=== PATIENT | female | born 1990 | race Caucasian/White ===

== ENCOUNTER 2018-11-19 15:19 | Inpatient (IN) ==
[2018-11-19] MEDS ORDERED: Sod Chloride 0.9% Inj 1,000 ML IV.SIG ONE (17:54)
--- NOTE | 2018-11-19 18:03 | ED ---
HPI General Chief complaint: Eye Problems Stated complaint: eye problem Time Seen by Provider: 11/19/18 17:22 Source: patient Mode of arrival: ambulatory Limitations: no limitations History of Present Illness HPI Narrative: Patient is a 28-year-old female who was sent to the emergency room by the interactive producer, Dr. Terry Martin for evaluation. Patient was found to have papilledema today on her ophthalmology exam, she was sent to the emergency room for an MRI with possible lumbar puncture and neuro consult. Patient reports that for the past few weeks, her ears have been feeling very clogged. Patient reports that she had tried to clear the ears, she is currently on amoxicillin for possible infection. Reports that for the past week and a half, she has been feeling her heartbeat in her ears and has been hearing a whooshing sound. Patient reports that since Sunday, she has been having vision changes. Patient reports that when she sees a white light, it just lingers. Reports that now she is seeing shadowing's. Patient does wear prescribed glasses for reading. Reports that she has had a posterior headache with pain that goes her neck with the symptoms. Patient denies any fevers or chills, denies any nausea or vomiting, patient with no other complaints at this time. chief complaint: Reports vision change Onset (ago): day(s) Onset description: gradual Duration: constant Location: Reports both eyes Eye Symptoms: Reports blurry vision Mechanism: none Severity: moderate Severity scale (1-10): 4 If Pain, Quality: aching Associated symptoms: Reports headache and neck pain Treatments Prior to Arrival: Reports none Related Data Home Medications Medication Instructions Recorded Confirmed amoxicillin 875 mg PO BID 11/19/18 11/19/18 methocarbamol 750 mg PO BID 11/19/18 11/19/18 methylprednisolone 4 mg PO PER PKG DIR 11/19/18 11/19/18 Allergies Allergy/AdvReac Type Severity Reaction Status Date / Time No Known Allergies Allergy Verified 11/19/18 17:44 Review of Systems ROS: all other systems reviewed are negative [facility] Medical History Medical History Patient denies medical problems (Acute) Surgical History Surgical History History of tonsillectomy (Acute) Social History Social History Substance History: No History of Abuse Second Hand Smoke Exposure: No Smoking Status: Never smoker How Often Do You Have a Drink Containing Alcohol: 4 or more times a week Recent Travel in [facility] within the Last 8 Weeks: Yes Recent Out of Country Travel within the Last 8 Weeks: Yes Immunization History Tetanus Immunization: <5 Years Exam Narrative Exam Narrative: GENERAL: Mild distress SKIN: Focused skin assessment warm/dry. HEAD: Atraumatic. Normocephalic. EYES: Pupils equal and round. No scleral icterus. No injection or drainage. EARS: TM normal with no perforation or swelling, no otitis media or externa ENT: No nasal bleeding or discharge. Mucous membranes pink and moist. NECK: Trachea midline. No JVD. Negative Kernig's and Brudzinski sign CARDIOVASCULAR: Regular rate and rhythm. No murmur appreciated. RESPIRATORY: No accessory muscle use. Clear to auscultation. Breath sounds equal bilaterally. GASTROINTESTINAL: Abdomen soft, non-tender, nondistended. Hepatic and splenic margins not palpable. MUSCULOSKELETAL: No obvious deformities. No clubbing. No cyanosis. No edema. NEUROLOGICAL: Awake and alert. No obvious cranial nerve deficits. Motor grossly within normal limits. Normal speech. PSYCHIATRIC: Appropriate mood and affect; insight and judgment normal. Const General: cooperative, no acute distress and well developed Nutritional Appearance: overweight Orientation: alert, awake and oriented x3 HENMT Head: normocephalic and atraumatic Ears: TM normal on the right and TM normal on the left Nose: no nasal discharge and no epistaxis Mouth: moist mucous membranes Throat: posterior oropharynx normal and uvula midline Eyes Sclera: normal sclerae Pupils: PERRL Neck Neck: no meningeal signs, trachea midline and no JVD Resp Effort & Inspection: no use of accessory muscles Auscultation: clear to auscultation bilaterally Cardio Rate: regular rate Rhythm: regular rhythm Heart Sounds: no murmurs GI Inspection: non-distended Palpation: soft, no hepatosplenomegaly, no guarding, not rigid and nontender Auscultation: normal bowel sounds Rectal Exam: heme negative stool, No mass, No tenderness and other Back/Spine/Pelvis Back: no CVA tenderness Cervical Spine: No cervical spinal tenderness Thoracic/Lumbar Spine: No thoracic spinal tenderness and No lumbar spinal tenderness Skin General: dry skin (warm) and other (The patient is pale appearing with pallor to the mucosa in her mouth as well as in her eyes.) Neuro General: alert, awake and oriented x3 Cranial Nerves: CN's II-XI intact bilaterally Speech: speech normal Motor: strength 5/5 throughout and no movement abnormalities noted Sensory Exam: no sensory deficits noted Extrem General: normal to inspection (2+ pulses in all 4 extremities.), no calf tenderness, no clubbing, no cyanosis and no edema Psych Mood: congruent mood Affect: normal affect Judgment: judgment good Course Initial Documented Vital Signs Temperature 97.7 F 11/19/18 15:30 Pulse Rate 112 H 11/19/18 15:30 Respiratory Rate 16 11/19/18 15:30 Blood Pressure 139/60 11/19/18 15:30 Pulse Oximetry 99 11/19/18 15:30 Last Documented Vital Signs Temperature 97.8 F 11/24/18 20:45 Pulse Rate 99 H 11/24/18 20:45 Respiratory Rate 19 11/24/18 20:45 Blood Pressure 107/57 L 11/24/18 20:45 Pulse Oximetry 98 11/24/18 20:45 Sign Out Sign Out Data: Patient Sign Out occurred on 11/19/18 at 19:57. Patient's care was discussed, and care was transferred from Yen Gale to Mari Donahue MD. Sign Out Comment: Patient pending mri of brain and then admission to hospital. Last updated by Yen Gale at 11/19/18 19:05 Post-Handoff Eval: The patient's case was checked out to me by Dr. Gale. Please see her initial history and physical. The patient's case was checked out to me at the conclusion of her shift. The patient is pending MRI of the brain. The patient presented with reports of not feeling well for the last few weeks. She reports that she began to have a pressure sensation in bilateral ears. She reports having a pressure sensation about the back of the head. The patient reports that she went to a local urgent care center and was treated with amoxicillin for suspected ear infection. The patient reports that the symptoms continued and she then began to have changes in her vision with shadows in her vision. She reports that she was seen by an eye doctor earlier today for examination and was noted to have papilledema. The patient was sent to the emergency department for an MRI of the orbit with and without contrast and admission for further evaluation. During the course of the patient's emergency department visit, the patient was placed on a power distribution engineer with oximetry and frequent blood pressure monitoring. The patient had IV access obtained and blood work sent for analysis. The patient was initially provided by Dr. Gale, normal saline 1 L IV fluid bolus. After the patient's white blood cell count came back elevated, the patient was treated with Zosyn 3.375 g IV, Blood cultures x2 were collected and a lactic acid was sent for analysis. The patient's diagnostic studies are remarkable for the elevated white blood cell count noted by Dr. Gale, hemoglobin 6.5. The patient reports a regular menstrual cycle that usually last for 4 days and is not typically heavy. Rectal exam was done by me to evaluate for possible underlying GI bleed. No significant stool was present in the rectal vault, however mucus was Hemoccult negative. The patient is noted to have an elevated MCV suspicious for iron deficiency anemia, platelets are 424, neutrophils 78, PT is 10.4, PTT 32.7, chemistries remarkable for glucose of 117, lactic acid within normal limits at 1.2, total bilirubin is 3.5, AST is 38. Urinalysis shows moderate occult blood , 27 RBCs, 7 WBCs, rare bacteria, culture not indicated. The blood in the patient's urine is likely related to her menstrual cycle as she is currently on it. Given the possibility of a hemolytic disease causing the patient's anemia, an LDH and haptoglobin was ordered. The patient's MRI of the orbits with and without contrast was read by the reading radiologist as showing mild ethmoid sinusitis, otherwise normal orbit MRI with and without contrast. I spoke to the reading radiologist regarding this patient's case and the rest of the patient's MRI examination of her brain, given the patient's other symptoms. He reports after reviewing the images, no other acute abnormality is noted in the patient's brain. The patient's case including history, pertinent physical examination findings, and laboratory studies were discussed with Dr. Nelson. It was agreed that the patient would be admitted to the hospitalist service. The patient's results were discussed with the patient, including the plan of care. I explained that further testing and/ or monitoring is indicated based on the patient's history, examination, and/ or laboratory findings. Therefore, I recommended admission for additional evaluation. The patient expressed understanding and was agreeable with this plan. The patient was admitted to the hospital in guarded condition and sent to a bed under the care of the [facility] service. Medical Decision Making MDM Narrative Medical decision making narrative: During the course of the patients emergency department visit, the patients history, examination, and differential diagnosis were reviewed with the patient. The patient was placed on a power distribution engineer with oximetry and frequent blood pressure monitoring. The patient had an IV access obtained and blood work sent for analysis. The patient was initially provided IV fluids. The patients laboratory studies were reviewed and remarkable for WBC 22.2, hemoglobin 6.5, hematocrit 19.5, platelets 424 INR 1.0 Sodium 138, potassium 3.7, BUN 16, creatinine 0.73, chloride 104 Patient's hemoglobin 6.5, patient has been typed and screened and 2 units of blood was ordered for her. Patient reports that she currently is on her menstrual cycle, she has never received blood products in the past and has never been told that she has been anemic in the past. Given her leukocytosis and tachycardia, blood cultures as well as lactic acid were ordered. IV Zosyn was ordered. Medical Screen Exam Complete: Yes Emergency Medical Condition: Yes Differential Diagnosis Differential Diagnosis: Intracranial mass lesions, cerebral edema, obstructive hydrocephalus, obstruction of venous flow -venous sinus thrombosis, jugular vein compression, idiopathic intracranial hypertension, cerebral edema Lab Data Result diagrams: 11/24/18 05:59 11/22/18 06:09 POC Results POC Urine Results Negative Lab Results 11/19/18 11/19/18 11/19/18 Range/Units 18:00 18:00 18:00 WBC 22.2 H (4.0-11.0) th/mm3 RBC 1.84 L (4.00-5.30) mil/mm3 Hgb 6.5 L* (11.6-15.3) gm/dL Hct 19.5 L* (35.0-46.0) % MCV 106.3 H (80.0-100.0) fL MCH 35.2 H (27.0-34.0) pg MCHC 33.1 (32.0-36.0) % RDW 27.9 H (11.6-17.2) % Plt Count 424 (150-450) th/mm3 MPV 7.4 (7.0-11.0) fL Prelim Diff (Auto) Slide review pending Neut % (Auto) 78.0 H (16.0-70.0) % Lymph % (Auto) 13.9 (9.0-44.0) % Snyder % (Auto) 7.3 (0.0-8.0) % Eos % (Auto) 0.2 (0.0-4.0) % Baso % (Auto) 0.6 (0.0-2.0) % Neut # (Auto) 17.3 H (1.8-7.7) th/mm3 Lymph # (Auto) 3.1 (1.0-4.8) th/mm3 Snyder # (Auto) 1.6 H (0.0-0.9) th/mm3 Eos # (Auto) 0.0 (0.0-0.4) th/mm3 Baso # (Auto) 0.1 (0.0-0.2) th/mm3 WBC Differential Manual diff final Seg Neuts % (Manual) 77 H (16-70) % Band Neuts % (Manual) 5 (0-6) % Lymphocytes % (Manual) 15 (9-44) % Monocytes % (Manual) 1 (0-8) % Eosinophils % (Manual) 1 (0-4) % Basophils % (Manual) 1 (0-2) % Metamyelocytes % (Man) (0-1) % Myelocytes % (Man) (0-0) % Abs Neuts (Manual) 18.2 H (1.8-7.7) th/mm3 Nucleated RBCs/100 WBC 18 H (0-0) /100 WBC Differential Comment . Hypersegmented Neuts (None) Toxic Granulation 1+ H (None) Platelet Estimate High H (Normal) Platelet Morphology Normal (Normal) Dimorphic RBCs (None) Polychromasia 4.0 H (0.0-1.9) % Basophilic Stippling Faint H (None) Spherocytes 2+ H (None) Pappenheimer Bodies (None) ESR (0-20) mm/hr Haptoglobin (30-200) mg/dL PT 10.4 (9.8-11.6) sec INR 1.0 Ratio APTT 32.7 H (23.4-31.7) sec Sodium 138 (136-145) meq/L Potassium 3.7 (3.5-5.1) meq/L Chloride 104 (98-107) meq/L Carbon Dioxide 27.7 (21.0-32.0) meq/L Anion Gap 6 (5-15) meq/L BUN 16 (7-18) mg/dL Creatinine 0.73 (0.50-1.00) mg/dL Estimated GFR Greater than 89 (>89) mL/min Random Glucose 117 H (74-106) mg/dL Lactic Acid (0.4-2.0) mmol/L Calcium 8.5 (8.5-10.1) mg/dL Iron (50-170) mcg/dL TIBC (250-450) mcg/dL % Saturation (20-50) % Total Bilirubin 3.5 H (0.2-1.0) mg/dL AST 38 H (15-37) U/L ALT 20 (10-53) U/L Alkaline Phosphatase 92 (45-117) U/L Lactate Dehydrogenase (84-246) U/L Total Protein 7.7 (6.4-8.2) g/dL Albumin 4.2 (3.4-5.0) g/dL Vitamin B12 (193-986) pg/mL Folate (3.1-17.5) ng/mL TSH (0.358-3.740) uIU/mL Beta HCG, Qual (0-5) mIU/mL Urine Color (Yellw/Straw) Urine Clarity (Clear) Urine pH (5.0-8.5) Ur Specific [place] (1.002-1.035) Urine Protein (Neg-Trace) mg/dL Urine Glucose (UA) (Negative) mg/dL Urine Ketones (Negative) mg/dL Urine Occult Blood (Negative) Urine Nitrate (Negative) Urine Bilirubin (Negative) Urine Urobilinogen (Less than 2) mg/dL Ur Leukocyte Esterase (Negative) Urine RBC (0-3) /hpf Urine WBC (0-5) /hpf Ur Squamous Epith Cells (0-5) /hpf Urine Bacteria (None) /hpf Urine Mucus (Occasional) /lpf Micro UA Comment Ur Microscopic Review Urine Culture Comments CSF Volume (1) mL CSF Supernat Color (1) (Clear) CSF Gross Blood (1) (0) CSF Volume (2) mL CSF Supernat Color (2) (Clear) CSF Gross Blood (2) (0) CSF Volume (3) mL CSF Supernat Color (3) (Clear) CSF Gross Blood (3) (0) CSF Volume (4) mL CSF Supernat Color (4) (Clear) CSF Gross Blood (4) (0) CSF WBC (4) (0-10) /mm3 CSF RBC (4) (None) /mm3 CSF Neutrophils % % CSF Lymphocytes % % CSF Monocytes % % CSF Glucose (40-80) mg/dL CSF Total Protein (15.0-45.0) mg/dL Immunophenotypic Anal Marrow Immunophenotype Blood Type Antibody Screen Prewarmed Antibody Srcn Antibody Identification Antibody ID (Elution) Antigen Identification Direct Antiglob Test (Negative) MTS Gel Crossmatch Crossmatch Prewarmed Bld Prod Order Comment 11/19/18 11/19/18 11/19/18 Range/Units 18:00 18:44 18:44 WBC (4.0-11.0) th/mm3 RBC (4.00-5.30) mil/mm3 Hgb (11.6-15.3) gm/dL Hct (35.0-46.0) % MCV (80.0-100.0) fL MCH (27.0-34.0) pg MCHC (32.0-36.0) % RDW (11.6-17.2) % Plt Count (150-450) th/mm3 MPV (7.0-11.0) fL Prelim Diff (Auto) Neut % (Auto) (16.0-70.0) % Lymph % (Auto) (9.0-44.0) % Snyder % (Auto) (0.0-8.0) % Eos % (Auto) (0.0-4.0) % Baso % (Auto) (0.0-2.0) % Neut # (Auto) (1.8-7.7) th/mm3 Lymph # (Auto) (1.0-4.8) th/mm3 Snyder # (Auto) (0.0-0.9) th/mm3 Eos # (Auto) (0.0-0.4) th/mm3 Baso # (Auto) (0.0-0.2) th/mm3 WBC Differential Seg Neuts % (Manual) (16-70) % Band Neuts % (Manual) (0-6) % Lymphocytes % (Manual) (9-44) % Monocytes % (Manual) (0-8) % Eosinophils % (Manual) (0-4) % Basophils % (Manual) (0-2) % Metamyelocytes % (Man) (0-1) % Myelocytes % (Man) (0-0) % Abs Neuts (Manual) (1.8-7.7) th/mm3 Nucleated RBCs/100 WBC (0-0) /100 WBC Differential Comment Hypersegmented Neuts (None) Toxic Granulation (None) Platelet Estimate (Normal) Platelet Morphology (Normal) Dimorphic RBCs (None) Polychromasia (0.0-1.9) % Basophilic Stippling (None) Spherocytes (None) Pappenheimer Bodies (None) ESR (0-20) mm/hr Haptoglobin (30-200) mg/dL PT (9.8-11.6) sec INR Ratio APTT (23.4-31.7) sec Sodium (136-145) meq/L Potassium (3.5-5.1) meq/L Chloride (98-107) meq/L Carbon Dioxide (21.0-32.0) meq/L Anion Gap (5-15) meq/L BUN (7-18) mg/dL Creatinine (0.50-1.00) mg/dL Estimated GFR (>89) mL/min Random Glucose (74-106) mg/dL Lactic Acid 1.2 (0.4-2.0) mmol/L Calcium (8.5-10.1) mg/dL Iron 106 (50-170) mcg/dL TIBC 406 (250-450) mcg/dL % Saturation 26.1 (20-50) % Total Bilirubin (0.2-1.0) mg/dL AST (15-37) U/L ALT (10-53) U/L Alkaline Phosphatase (45-117) U/L Lactate Dehydrogenase (84-246) U/L Total Protein (6.4-8.2) g/dL Albumin (3.4-5.0) g/dL Vitamin B12 (193-986) pg/mL Folate (3.1-17.5) ng/mL TSH (0.358-3.740) uIU/mL Beta HCG, Qual (0-5) mIU/mL Urine Color (Yellw/Straw) Urine Clarity (Clear) Urine pH (5.0-8.5) Ur Specific [place] (1.002-1.035) Urine Protein (Neg-Trace) mg/dL Urine Glucose (UA) (Negative) mg/dL Urine Ketones (Negative) mg/dL Urine Occult Blood (Negative) Urine Nitrate (Negative) Urine Bilirubin (Negative) Urine Urobilinogen (Less than 2) mg/dL Ur Leukocyte Esterase (Negative) Urine RBC (0-3) /hpf Urine WBC (0-5) /hpf Ur Squamous Epith Cells (0-5) /hpf Urine Bacteria (None) /hpf Urine Mucus (Occasional) /lpf Micro UA Comment Ur Microscopic Review Urine Culture Comments CSF Volume (1) mL CSF Supernat Color (1) (Clear) CSF Gross Blood (1) (0) CSF Volume (2) mL CSF Supernat Color (2) (Clear) CSF Gross Blood (2) (0) CSF Volume (3) mL CSF Supernat Color (3) (Clear) CSF Gross Blood (3) (0) CSF Volume (4) mL CSF Supernat Color (4) (Clear) CSF Gross Blood (4) (0) CSF WBC (4) (0-10) /mm3 CSF RBC (4) (None) /mm3 CSF Neutrophils % % CSF Lymphocytes % % CSF Monocytes % % CSF Glucose (40-80) mg/dL CSF Total Protein (15.0-45.0) mg/dL Immunophenotypic Anal Marrow Immunophenotype Blood Type O Positive Antibody Screen Positive H Prewarmed Antibody Srcn Antibody Identification Antibody ID (Elution) Antigen Identification e Antigen - POSITIVE Direct Antiglob Test (Negative) MTS Gel Crossmatch Crossmatch Prewarmed Bld Prod Order Comment 11/19/18 11/19/18 11/19/18 Range/Units 18:44 18:44 19:35 WBC (4.0-11.0) th/mm3 RBC (4.00-5.30) mil/mm3 Hgb (11.6-15.3) gm/dL Hct (35.0-46.0) % MCV (80.0-100.0) fL MCH (27.0-34.0) pg MCHC (32.0-36.0) % RDW (11.6-17.2) % Plt Count (150-450) th/mm3 MPV (7.0-11.0) fL Prelim Diff (Auto) Neut % (Auto) (16.0-70.0) % Lymph % (Auto) (9.0-44.0) % Snyder % (Auto) (0.0-8.0) % Eos % (Auto) (0.0-4.0) % Baso % (Auto) (0.0-2.0) % Neut # (Auto) (1.8-7.7) th/mm3 Lymph # (Auto) (1.0-4.8) th/mm3 Snyder # (Auto) (0.0-0.9) th/mm3 Eos # (Auto) (0.0-0.4) th/mm3 Baso # (Auto) (0.0-0.2) th/mm3 WBC Differential Seg Neuts % (Manual) (16-70) % Band Neuts % (Manual) (0-6) % Lymphocytes % (Manual) (9-44) % Monocytes % (Manual) (0-8) % Eosinophils % (Manual) (0-4) % Basophils % (Manual) (0-2) % Metamyelocytes % (Man) (0-1) % Myelocytes % (Man) (0-0) % Abs Neuts (Manual) (1.8-7.7) th/mm3 Nucleated RBCs/100 WBC (0-0) /100 WBC Differential Comment Hypersegmented Neuts (None) Toxic Granulation (None) Platelet Estimate (Normal) Platelet Morphology (Normal) Dimorphic RBCs (None) Polychromasia (0.0-1.9) % Basophilic Stippling (None) Spherocytes (None) Pappenheimer Bodies (None) ESR (0-20) mm/hr Haptoglobin (30-200) mg/dL PT (9.8-11.6) sec INR Ratio APTT (23.4-31.7) sec Sodium (136-145) meq/L Potassium (3.5-5.1) meq/L Chloride (98-107) meq/L Carbon Dioxide (21.0-32.0) meq/L Anion Gap (5-15) meq/L BUN (7-18) mg/dL Creatinine (0.50-1.00) mg/dL Estimated GFR (>89) mL/min Random Glucose (74-106) mg/dL Lactic Acid (0.4-2.0) mmol/L Calcium (8.5-10.1) mg/dL Iron (50-170) mcg/dL TIBC (250-450) mcg/dL % Saturation (20-50) % Total Bilirubin (0.2-1.0) mg/dL AST (15-37) U/L ALT (10-53) U/L Alkaline Phosphatase (45-117) U/L Lactate Dehydrogenase (84-246) U/L Total Protein (6.4-8.2) g/dL Albumin (3.4-5.0) g/dL Vitamin B12 (193-986) pg/mL Folate (3.1-17.5) ng/mL TSH (0.358-3.740) uIU/mL Beta HCG, Qual (0-5) mIU/mL Urine Color Yellow (Yellw/Straw) Urine Clarity Clear (Clear) Urine pH 6.0 (5.0-8.5) Ur Specific [place] 1.017 (1.002-1.035) Urine Protein Negative (Neg-Trace) mg/dL Urine Glucose (UA) Negative (Negative) mg/dL Urine Ketones Negative (Negative) mg/dL Urine Occult Blood Moderate H (Negative) Urine Nitrate Negative (Negative) Urine Bilirubin Negative (Negative) Urine Urobilinogen Less than 2 (Less than 2) mg/dL Ur Leukocyte Esterase Negative (Negative) Urine RBC 27 H (0-3) /hpf Urine WBC 7 H (0-5) /hpf Ur Squamous Epith Cells <1 (0-5) /hpf Urine Bacteria Rare H (None) /hpf Urine Mucus Few H (Occasional) /lpf Micro UA Comment Culture not ind Ur Microscopic Review Not Reportable Urine Culture Comments Culture not ind CSF Volume (1) mL CSF Supernat Color (1) (Clear) CSF Gross Blood (1) (0) CSF Volume (2) mL CSF Supernat Color (2) (Clear) CSF Gross Blood (2) (0) CSF Volume (3) mL CSF Supernat Color (3) (Clear) CSF Gross Blood (3) (0) CSF Volume (4) mL CSF Supernat Color (4) (Clear) CSF Gross Blood (4) (0) CSF WBC (4) (0-10) /mm3 CSF RBC (4) (None) /mm3 CSF Neutrophils % % CSF Lymphocytes % % CSF Monocytes % % CSF Glucose (40-80) mg/dL CSF Total Protein (15.0-45.0) mg/dL Immunophenotypic Anal Marrow Immunophenotype Blood Type Antibody Screen Prewarmed Antibody Srcn Antibody Identification Antibody ID (Elution) Antigen Identification Direct Antiglob Test Strongly positive H (Negative) MTS Gel Crossmatch See Detail Crossmatch Prewarmed See Detail Bld Prod Order Comment 11/19/18 11/19/18 11/19/18 Range/Units 20:22 20:53 20:53 WBC (4.0-11.0) th/mm3 RBC (4.00-5.30) mil/mm3 Hgb (11.6-15.3) gm/dL Hct (35.0-46.0) % MCV (80.0-100.0) fL MCH (27.0-34.0) pg MCHC (32.0-36.0) % RDW (11.6-17.2) % Plt Count (150-450) th/mm3 MPV (7.0-11.0) fL Prelim Diff (Auto) Neut % (Auto) (16.0-70.0) % Lymph % (Auto) (9.0-44.0) % Snyder % (Auto) (0.0-8.0) % Eos % (Auto) (0.0-4.0) % Baso % (Auto) (0.0-2.0) % Neut # (Auto) (1.8-7.7) th/mm3 Lymph # (Auto) (1.0-4.8) th/mm3 Snyder # (Auto) (0.0-0.9) th/mm3 Eos # (Auto) (0.0-0.4) th/mm3 Baso # (Auto) (0.0-0.2) th/mm3 WBC Differential Seg Neuts % (Manual) (16-70) % Band Neuts % (Manual) (0-6) % Lymphocytes % (Manual) (9-44) % Monocytes % (Manual) (0-8) % Eosinophils % (Manual) (0-4) % Basophils % (Manual) (0-2) % Metamyelocytes % (Man) (0-1) % Myelocytes % (Man) (0-0) % Abs Neuts (Manual) (1.8-7.7) th/mm3 Nucleated RBCs/100 WBC (0-0) /100 WBC Differential Comment Hypersegmented Neuts (None) Toxic Granulation (None) Platelet Estimate (Normal) Platelet Morphology (Normal) Dimorphic RBCs (None) Polychromasia (0.0-1.9) % Basophilic Stippling (None) Spherocytes (None) Pappenheimer Bodies (None) ESR 82 H (0-20) mm/hr Haptoglobin Less than 10 L (30-200) mg/dL PT (9.8-11.6) sec INR Ratio APTT (23.4-31.7) sec Sodium (136-145) meq/L Potassium (3.5-5.1) meq/L Chloride (98-107) meq/L Carbon Dioxide (21.0-32.0) meq/L Anion Gap (5-15) meq/L BUN (7-18) mg/dL Creatinine (0.50-1.00) mg/dL Estimated GFR (>89) mL/min Random Glucose (74-106) mg/dL Lactic Acid (0.4-2.0) mmol/L Calcium (8.5-10.1) mg/dL Iron (50-170) mcg/dL TIBC (250-450) mcg/dL % Saturation (20-50) % Total Bilirubin (0.2-1.0) mg/dL AST (15-37) U/L ALT (10-53) U/L Alkaline Phosphatase (45-117) U/L Lactate Dehydrogenase 686 H (84-246) U/L Total Protein (6.4-8.2) g/dL Albumin (3.4-5.0) g/dL Vitamin B12 (193-986) pg/mL Folate (3.1-17.5) ng/mL TSH (0.358-3.740) uIU/mL Beta HCG, Qual (0-5) mIU/mL Urine Color (Yellw/Straw) Urine Clarity (Clear) Urine pH (5.0-8.5) Ur Specific [place] (1.002-1.035) Urine Protein (Neg-Trace) mg/dL Urine Glucose (UA) (Negative) mg/dL Urine Ketones (Negative) mg/dL Urine Occult Blood (Negative) Urine Nitrate (Negative) Urine Bilirubin (Negative) Urine Urobilinogen (Less than 2) mg/dL Ur Leukocyte Esterase (Negative) Urine RBC (0-3) /hpf Urine WBC (0-5) /hpf Ur Squamous Epith Cells (0-5) /hpf Urine Bacteria (None) /hpf Urine Mucus (Occasional) /lpf Micro UA Comment Ur Microscopic Review Urine Culture Comments CSF Volume (1) mL CSF Supernat Color (1) (Clear) CSF Gross Blood (1) (0) CSF Volume (2) mL CSF Supernat Color (2) (Clear) CSF Gross Blood (2) (0) CSF Volume (3) mL CSF Supernat Color (3) (Clear) CSF Gross Blood (3) (0) CSF Volume (4) mL CSF Supernat Color (4) (Clear) CSF Gross Blood (4) (0) CSF WBC (4) (0-10) /mm3 CSF RBC (4) (None) /mm3 CSF Neutrophils % % CSF Lymphocytes % % CSF Monocytes % % CSF Glucose (40-80) mg/dL CSF Total Protein (15.0-45.0) mg/dL Immunophenotypic Anal Marrow Immunophenotype Blood Type Antibody Screen P[facility]armed Antibody Srcn Antibody Identification Non-Specific Cold Agglutinin Antibody ID (Elution) Antigen Identification Direct Antiglob Test (Negative) MTS Gel Crossmatch Crossmatch [place] Bld Prod Order Comment 11/20/18 11/20/18 11/20/18 Range/Units 00:51 11:01 11:01 WBC (4.0-11.0) th/mm3 RBC (4.00-5.30) mil/mm3 Hgb (11.6-15.3) gm/dL Hct (35.0-46.0) % MCV (80.0-100.0) fL MCH (27.0-34.0) pg MCHC (32.0-36.0) % RDW (11.6-17.2) % Plt Count (150-450) th/mm3 MPV (7.0-11.0) fL Prelim Diff (Auto) Neut % (Auto) (16.0-70.0) % Lymph % (Auto) (9.0-44.0) % Snyder % (Auto) (0.0-8.0) % Eos % (Auto) (0.0-4.0) % Baso % (Auto) (0.0-2.0) % Neut # (Auto) (1.8-7.7) th/mm3 Lymph # (Auto) (1.0-4.8) th/mm3 Snyder # (Auto) (0.0-0.9) th/mm3 Eos # (Auto) (0.0-0.4) th/mm3 Baso # (Auto) (0.0-0.2) th/mm3 WBC Differential Seg Neuts % (Manual) (16-70) % Band Neuts % (Manual) (0-6) % Lymphocytes % (Manual) (9-44) % Monocytes % (Manual) (0-8) % Eosinophils % (Manual) (0-4) % Basophils % (Manual) (0-2) % Metamyelocytes % (Man) (0-1) % Myelocytes % (Man) (0-0) % Abs Neuts (Manual) (1.8-7.7) th/mm3 Nucleated RBCs/100 WBC (0-0) /100 WBC Differential Comment Hypersegmented Neuts (None) Toxic Granulation (None) Platelet Estimate (Normal) Platelet Morphology (Normal) Dimorphic RBCs (None) Polychromasia (0.0-1.9) % Basophilic Stippling (None) Spherocytes (None) Pappenheimer Bodies (None) ESR (0-20) mm/hr Haptoglobin (30-200) mg/dL PT (9.8-11.6) sec INR Ratio APTT (23.4-31.7) sec Sodium (136-145) meq/L Potassium (3.5-5.1) meq/L Chloride (98-107) meq/L Carbon Dioxide (21.0-32.0) meq/L Anion Gap (5-15) meq/L BUN (7-18) mg/dL Creatinine (0.50-1.00) mg/dL Estimated GFR (>89) mL/min Random Glucose (74-106) mg/dL Lactic Acid (0.4-2.0) mmol/L Calcium (8.5-10.1) mg/dL Iron (50-170) mcg/dL TIBC (250-450) mcg/dL % Saturation (20-50) % Total Bilirubin (0.2-1.0) mg/dL AST (15-37) U/L ALT (10-53) U/L Alkaline Phosphatase (45-117) U/L Lactate Dehydrogenase (84-246) U/L Total Protein (6.4-8.2) g/dL Albumin (3.4-5.0) g/dL Vitamin B12 (193-986) pg/mL Folate (3.1-17.5) ng/mL TSH (0.358-3.740) uIU/mL Beta HCG, Qual (0-5) mIU/mL Urine Color (Yellw/Straw) Urine Clarity (Clear) Urine pH (5.0-8.5) Ur Specific [place] (1.002-1.035) Urine Protein (Neg-Trace) mg/dL Urine Glucose (UA) (Negative) mg/dL Urine Ketones (Negative) mg/dL Urine Occult Blood (Negative) Urine Nitrate (Negative) Urine Bilirubin (Negative) Urine Urobilinogen (Less than 2) mg/dL Ur Leukocyte Esterase (Negative) Urine RBC (0-3) /hpf Urine WBC (0-5) /hpf Ur Squamous Epith Cells (0-5) /hpf Urine Bacteria (None) /hpf Urine Mucus (Occasional) /lpf Micro UA Comment Ur Microscopic Review Urine Culture Comments CSF Volume (1) mL CSF Supernat Color (1) (Clear) CSF Gross Blood (1) (0) CSF Volume (2) mL CSF Supernat Color (2) (Clear) CSF Gross Blood (2) (0) CSF Volume (3) mL CSF Supernat Color (3) (Clear) CSF Gross Blood (3) (0) CSF Volume (4) mL CSF Supernat Color (4) (Clear) CSF Gross Blood (4) (0) CSF WBC (4) (0-10) /mm3 CSF RBC (4) (None) /mm3 CSF Neutrophils % % CSF Lymphocytes % % CSF Monocytes % % CSF Glucose 57 (40-80) mg/dL CSF Total Protein 35.2 (15.0-45.0) mg/dL Immunophenotypic Anal Marrow Immunophenotype Blood Type Antibody Screen [facility] Antibody Srcn Positive H Antibody Identification Antibody ID (Elution) Antigen Identification e Antigen - POSITIVE Direct Antiglob Test (Negative) MTS Gel Crossmatch Crossmatch [place] Bld Prod Order Comment 11/20/18 11/20/18 11/20/18 Range/Units 11:01 14:00 16:24 WBC (4.0-11.0) th/mm3 RBC (4.00-5.30) mil/mm3 Hgb (11.6-15.3) gm/dL Hct (35.0-46.0) % MCV (80.0-100.0) fL MCH (27.0-34.0) pg MCHC (32.0-36.0) % RDW (11.6-17.2) % Plt Count (150-450) th/mm3 MPV (7.0-11.0) fL Prelim Diff (Auto) Neut % (Auto) (16.0-70.0) % Lymph % (Auto) (9.0-44.0) % Snyder % (Auto) (0.0-8.0) % Eos % (Auto) (0.0-4.0) % Baso % (Auto) (0.0-2.0) % Neut # (Auto) (1.8-7.7) th/mm3 Lymph # (Auto) (1.0-4.8) th/mm3 Snyder # (Auto) (0.0-0.9) th/mm3 Eos # (Auto) (0.0-0.4) th/mm3 Baso # (Auto) (0.0-0.2) th/mm3 WBC Differential Seg Neuts % (Manual) (16-70) % Band Neuts % (Manual) (0-6) % Lymphocytes % (Manual) (9-44) % Monocytes % (Manual) (0-8) % Eosinophils % (Manual) (0-4) % Basophils % (Manual) (0-2) % Metamyelocytes % (Man) (0-1) % Myelocytes % (Man) (0-0) % Abs Neuts (Manual) (1.8-7.7) th/mm3 Nucleated RBCs/100 WBC (0-0) /100 WBC Differential Comment Hypersegmented Neuts (None) Toxic Granulation (None) Platelet Estimate (Normal) Platelet Morphology (Normal) Dimorphic RBCs (None) Polychromasia (0.0-1.9) % Basophilic Stippling (None) Spherocytes (None) Pappenheimer Bodies (None) ESR (0-20) mm/hr Haptoglobin (30-200) mg/dL PT (9.8-11.6) sec INR Ratio APTT (23.4-31.7) sec Sodium (136-145) meq/L Potassium (3.5-5.1) meq/L Chloride (98-107) meq/L Carbon Dioxide (21.0-32.0) meq/L Anion Gap (5-15) meq/L BUN (7-18) mg/dL Creatinine (0.50-1.00) mg/dL Estimated GFR (>89) mL/min Random Glucose (74-106) mg/dL Lactic Acid (0.4-2.0) mmol/L Calcium (8.5-10.1) mg/dL Iron (50-170) mcg/dL TIBC (250-450) mcg/dL % Saturation (20-50) % Total Bilirubin (0.2-1.0) mg/dL AST (15-37) U/L ALT (10-53) U/L Alkaline Phosphatase (45-117) U/L Lactate Dehydrogenase (84-246) U/L Total Protein (6.4-8.2) g/dL Albumin (3.4-5.0) g/dL Vitamin B12 476 (193-986) pg/mL Folate Greater than 20.0 H (3.1-17.5) ng/mL TSH (0.358-3.740) uIU/mL Beta HCG, Qual (0-5) mIU/mL Urine Color (Yellw/Straw) Urine Clarity (Clear) Urine pH (5.0-8.5) Ur Specific [place] (1.002-1.035) Urine Protein (Neg-Trace) mg/dL Urine Glucose (UA) (Negative) mg/dL Urine Ketones (Negative) mg/dL Urine Occult Blood (Negative) Urine Nitrate (Negative) Urine Bilirubin (Negative) Urine Urobilinogen (Less than 2) mg/dL Ur Leukocyte Esterase (Negative) Urine RBC (0-3) /hpf Urine WBC (0-5) /hpf Ur Squamous Epith Cells (0-5) /hpf Urine Bacteria (None) /hpf Urine Mucus (Occasional) /lpf Micro UA Comment Ur Microscopic Review Urine Culture Comments CSF Volume (1) 8.0 mL CSF Supernat Color (1) Clear (Clear) CSF Gross Blood (1) Trace (0) CSF Volume (2) 8.3 mL CSF Supernat Color (2) Clear (Clear) CSF Gross Blood (2) 0 (0) CSF Volume (3) 7.0 mL CSF Supernat Color (3) Clear (Clear) CSF Gross Blood (3) 0 (0) CSF Volume (4) 7.5 mL CSF Supernat Color (4) Clear (Clear) CSF Gross Blood (4) 0 (0) CSF WBC (4) 1 (0-10) /mm3 CSF RBC (4) 2 H (None) /mm3 CSF Neutrophils % 14 % CSF Lymphocytes % 79 % CSF Monocytes % 7 % CSF Glucose (40-80) mg/dL CSF Total Protein (15.0-45.0) mg/dL Immunophenotypic Anal Marrow Immunophenotype Blood Type Antibody Screen [facility] Antibody Srcn Antibody Identification Antibody ID (Elution) Panagglutinin Antigen Identification Direct Antiglob Test (Negative) MTS Gel Crossmatch Crossmatch [place] Bld Prod Order Comment 11/20/18 11/21/18 11/21/18 Range/Units 16:24 10:53 10:53 WBC 25.4 H (4.0-11.0) th/mm3 RBC 3.13 L (4.00-5.30) mil/mm3 Hgb 10.1 L D (11.6-15.3) gm/dL Hct 30.9 L (35.0-46.0) % MCV 98.6 D (80.0-100.0) fL MCH 32.2 (27.0-34.0) pg MCHC 32.6 (32.0-36.0) % RDW 23.2 H D (11.6-17.2) % Plt Count 410 (150-450) th/mm3 MPV 7.9 (7.0-11.0) fL Prelim Diff (Auto) Slide review pending Neut % (Auto) 91.4 H (16.0-70.0) % Lymph % (Auto) 5.9 L (9.0-44.0) % Snyder % (Auto) 2.5 (0.0-8.0) % Eos % (Auto) 0.0 (0.0-4.0) % Baso % (Auto) 0.2 (0.0-2.0) % Neut # (Auto) 23.2 H (1.8-7.7) th/mm3 Lymph # (Auto) 1.5 (1.0-4.8) th/mm3 Snyder # (Auto) 0.6 (0.0-0.9) th/mm3 Eos # (Auto) 0.0 (0.0-0.4) th/mm3 Baso # (Auto) 0.0 (0.0-0.2) th/mm3 WBC Differential Manual diff final Seg Neuts % (Manual) 90 H (16-70) % Band Neuts % (Manual) 1 (0-6) % Lymphocytes % (Manual) 4 L (9-44) % Monocytes % (Manual) 3 (0-8) % Eosinophils % (Manual) (0-4) % Basophils % (Manual) (0-2) % Metamyelocytes % (Man) 1 (0-1) % Myelocytes % (Man) 1 H (0-0) % Abs Neuts (Manual) 23.6 H (1.8-7.7) th/mm3 Nucleated RBCs/100 WBC 5 H (0-0) /100 WBC Differential Comment . Hypersegmented Neuts 1+ H (None) Toxic Granulation (None) Platelet Estimate Normal (Normal) Platelet Morphology Normal (Normal) Dimorphic RBCs Present H (None) Polychromasia 6.9 H (0.0-1.9) % Basophilic Stippling (None) Spherocytes 1+ H (None) Pappenheimer Bodies (None) ESR (0-20) mm/hr Haptoglobin (30-200) mg/dL PT (9.8-11.6) sec INR Ratio APTT (23.4-31.7) sec Sodium 140 (136-145) meq/L Potassium 3.5 (3.5-5.1) meq/L Chloride 111 H (98-107) meq/L Carbon Dioxide 19.6 L (21.0-32.0) meq/L Anion Gap 9 (5-15) meq/L BUN 14 (7-18) mg/dL Creatinine 0.85 (0.50-1.00) mg/dL Estimated GFR 80 L (>89) mL/min Random Glucose 145 H (74-106) mg/dL Lactic Acid (0.4-2.0) mmol/L Calcium 9.0 (8.5-10.1) mg/dL Iron (50-170) mcg/dL TIBC (250-450) mcg/dL % Saturation (20-50) % Total Bilirubin (0.2-1.0) mg/dL AST (15-37) U/L ALT (10-53) U/L Alkaline Phosphatase (45-117) U/L Lactate Dehydrogenase (84-246) U/L Total Protein (6.4-8.2) g/dL Albumin (3.4-5.0) g/dL Vitamin B12 (193-986) pg/mL Folate (3.1-17.5) ng/mL TSH (0.358-3.740) uIU/mL Beta HCG, Qual (0-5) mIU/mL Urine Color (Yellw/Straw) Urine Clarity (Clear) Urine pH (5.0-8.5) Ur Specific [place] (1.002-1.035) Urine Protein (Neg-Trace) mg/dL Urine Glucose (UA) (Negative) mg/dL Urine Ketones (Negative) mg/dL Urine Occult Blood (Negative) Urine Nitrate (Negative) Urine Bilirubin (Negative) Urine Urobilinogen (Less than 2) mg/dL Ur Leukocyte Esterase (Negative) Urine RBC (0-3) /hpf Urine WBC (0-5) /hpf Ur Squamous Epith Cells (0-5) /hpf Urine Bacteria (None) /hpf Urine Mucus (Occasional) /lpf Micro UA Comment Ur Microscopic Review Urine Culture Comments CSF Volume (1) mL CSF Supernat Color (1) (Clear) CSF Gross Blood (1) (0) CSF Volume (2) mL CSF Supernat Color (2) (Clear) CSF Gross Blood (2) (0) CSF Volume (3) mL CSF Supernat Color (3) (Clear) CSF Gross Blood (3) (0) CSF Volume (4) mL CSF Supernat Color (4) (Clear) CSF Gross Blood (4) (0) CSF WBC (4) (0-10) /mm3 CSF RBC (4) (None) /mm3 CSF Neutrophils % % CSF Lymphocytes % % CSF Monocytes % % CSF Glucose (40-80) mg/dL CSF Total Protein (15.0-45.0) mg/dL Immunophenotypic Anal Marrow Immunophenotype Blood Type Antibody Screen [facility] Antibody Srcn Antibody Identification Antibody ID (Elution) Antigen Identification Direct Antiglob Test (Negative) MTS Gel Crossmatch Crossmatch [place] Bld Prod Order Comment 11/21/18 11/21/18 11/22/18 Range/Units 10:53 10:53 06:09 WBC (4.0-11.0) th/mm3 RBC (4.00-5.30) mil/mm3 Hgb (11.6-15.3) gm/dL Hct (35.0-46.0) % MCV (80.0-100.0) fL MCH (27.0-34.0) pg MCHC (32.0-36.0) % RDW (11.6-17.2) % Plt Count (150-450) th/mm3 MPV (7.0-11.0) fL Prelim Diff (Auto) Neut % (Auto) (16.0-70.0) % Lymph % (Auto) (9.0-44.0) % Snyder % (Auto) (0.0-8.0) % Eos % (Auto) (0.0-4.0) % Baso % (Auto) (0.0-2.0) % Neut # (Auto) (1.8-7.7) th/mm3 Lymph # (Auto) (1.0-4.8) th/mm3 Snyder # (Auto) (0.0-0.9) th/mm3 Eos # (Auto) (0.0-0.4) th/mm3 Baso # (Auto) (0.0-0.2) th/mm3 WBC Differential Seg Neuts % (Manual) (16-70) % Band Neuts % (Manual) (0-6) % Lymphocytes % (Manual) (9-44) % Monocytes % (Manual) (0-8) % Eosinophils % (Manual) (0-4) % Basophils % (Manual) (0-2) % Metamyelocytes % (Man) (0-1) % Myelocytes % (Man) (0-0) % Abs Neuts (Manual) (1.8-7.7) th/mm3 Nucleated RBCs/100 WBC (0-0) /100 WBC Differential Comment Hypersegmented Neuts (None) Toxic Granulation (None) Platelet Estimate (Normal) Platelet Morphology (Normal) Dimorphic RBCs (None) Polychromasia (0.0-1.9) % Basophilic Stippling (None) Spherocytes (None) Pappenheimer Bodies (None) ESR (0-20) mm/hr Haptoglobin (30-200) mg/dL PT (9.8-11.6) sec INR Ratio APTT (23.4-31.7) sec Sodium (136-145) meq/L Potassium (3.5-5.1) meq/L Chloride (98-107) meq/L Carbon Dioxide (21.0-32.0) meq/L Anion Gap (5-15) meq/L BUN (7-18) mg/dL Creatinine 0.77 (0.50-1.00) mg/dL Estimated GFR Greater than 89 (>89) mL/min Random Glucose (74-106) mg/dL Lactic Acid (0.4-2.0) mmol/L Calcium (8.5-10.1) mg/dL Iron (50-170) mcg/dL TIBC (250-450) mcg/dL % Saturation (20-50) % Total Bilirubin 2.2 H (0.2-1.0) mg/dL AST (15-37) U/L ALT (10-53) U/L Alkaline Phosphatase (45-117) U/L Lactate Dehydrogenase 819 H (84-246) U/L Total Protein (6.4-8.2) g/dL Albumin (3.4-5.0) g/dL Vitamin B12 (193-986) pg/mL Folate (3.1-17.5) ng/mL TSH 0.325 L (0.358-3.740) uIU/mL Beta HCG, Qual Less than 1.0 (0-5) mIU/mL Urine Color (Yellw/Straw) Urine Clarity (Clear) Urine pH (5.0-8.5) Ur Specific [place] (1.002-1.035) Urine Protein (Neg-Trace) mg/dL Urine Glucose (UA) (Negative) mg/dL Urine Ketones (Negative) mg/dL Urine Occult Blood (Negative) Urine Nitrate (Negative) Urine Bilirubin (Negative) Urine Urobilinogen (Less than 2) mg/dL Ur Leukocyte Esterase (Negative) Urine RBC (0-3) /hpf Urine WBC (0-5) /hpf Ur Squamous Epith Cells (0-5) /hpf Urine Bacteria (None) /hpf Urine Mucus (Occasional) /lpf Micro UA Comment Ur Microscopic Review Urine Culture Comments CSF Volume (1) mL CSF Supernat Color (1) (Clear) CSF Gross Blood (1) (0) CSF Volume (2) mL CSF Supernat Color (2) (Clear) CSF Gross Blood (2) (0) CSF Volume (3) mL CSF Supernat Color (3) (Clear) CSF Gross Blood (3) (0) CSF Volume (4) mL CSF Supernat Color (4) (Clear) CSF Gross Blood (4) (0) CSF WBC (4) (0-10) /mm3 CSF RBC (4) (None) /mm3 CSF Neutrophils % % CSF Lymphocytes % % CSF Monocytes % % CSF Glucose (40-80) mg/dL CSF Total Protein (15.0-45.0) mg/dL Immunophenotypic Anal Mar[place] Immunophenotype Blood Type Antibody Screen [place] Antibody Srcn Antibody Identification Antibody ID (Elution) Antigen Identification Direct Antiglob Test (Negative) MTS Gel Crossmatch Crossmatch [place] Bld Prod Order Comment 11/22/18 11/22/18 11/23/18 Range/Units 06:09 Unknown 06:20 WBC 22.2 H 15.4 H (4.0-11.0) th/mm3 RBC 2.95 L 2.90 L (4.00-5.30) mil/mm3 Hgb 9.6 L 9.4 L (11.6-15.3) gm/dL Hct 29.6 L 28.3 L (35.0-46.0) % MCV 100.2 H 97.6 (80.0-100.0) fL MCH 32.6 32.5 (27.0-34.0) pg MCHC 32.5 33.3 (32.0-36.0) % RDW 24.1 H 23.9 H (11.6-17.2) % Plt Count 362 341 (150-450) th/mm3 MPV 8.1 8.0 (7.0-11.0) fL Prelim Diff (Auto) Slide review pending Slide review pending Neut % (Auto) 78.6 H 68.6 (16.0-70.0) % Lymph % (Auto) 14.9 23.0 (9.0-44.0) % Snyder % (Auto) 6.1 8.1 H (0.0-8.0) % Eos % (Auto) 0.1 0.1 (0.0-4.0) % Baso % (Auto) 0.3 0.2 (0.0-2.0) % Neut # (Auto) 17.5 H 10.6 H (1.8-7.7) th/mm3 Lymph # (Auto) 3.3 3.5 (1.0-4.8) th/mm3 Snyder # (Auto) 1.3 H 1.3 H (0.0-0.9) th/mm3 Eos # (Auto) 0.0 0.0 (0.0-0.4) th/mm3 Baso # (Auto) 0.1 0.0 (0.0-0.2) th/mm3 WBC Differential Manual diff final Manual diff final Seg Neuts % (Manual) 71 H 76 H (16-70) % Band Neuts % (Manual) 3 (0-6) % Lymphocytes % (Manual) 16 19 (9-44) % Monocytes % (Manual) 9 H 2 (0-8) % Eosinophils % (Manual) (0-4) % Basophils % (Manual) (0-2) % Metamyelocytes % (Man) 1 (0-1) % Myelocytes % (Man) 1 H 2 H (0-0) % Abs Neuts (Manual) 16.7 H 12.2 H (1.8-7.7) th/mm3 Nucleated RBCs/100 WBC 1 H (0-0) /100 WBC Differential Comment . . Hypersegmented Neuts 1+ H (None) Toxic Granulation (None) Platelet Estimate Normal Normal (Normal) Platelet Morphology Normal Normal (Normal) Dimorphic RBCs Present H (None) Polychromasia 6.4 H 4.2 H (0.0-1.9) % Basophilic Stippling (None) Spherocytes 2+ H 2+ H (None) Pappenheimer Bodies Present H (None) ESR (0-20) mm/hr Haptoglobin (30-200) mg/dL PT (9.8-11.6) sec INR Ratio APTT (23.4-31.7) sec Sodium (136-145) meq/L Potassium (3.5-5.1) meq/L Chloride (98-107) meq/L Carbon Dioxide (21.0-32.0) meq/L Anion Gap (5-15) meq/L BUN (7-18) mg/dL Creatinine (0.50-1.00) mg/dL Estimated GFR (>89) mL/min Random Glucose (74-106) mg/dL Lactic Acid (0.4-2.0) mmol/L Calcium (8.5-10.1) mg/dL Iron (50-170) mcg/dL TIBC (250-450) mcg/dL % Saturation (20-50) % Total Bilirubin (0.2-1.0) mg/dL AST (15-37) U/L ALT (10-53) U/L Alkaline Phosphatase (45-117) U/L Lactate Dehydrogenase (84-246) U/L Total Protein (6.4-8.2) g/dL Albumin (3.4-5.0) g/dL Vitamin B12 (193-986) pg/mL Folate (3.1-17.5) ng/mL TSH (0.358-3.740) uIU/mL Beta HCG, Qual (0-5) mIU/mL Urine Color (Yellw/Straw) Urine Clarity (Clear) Urine pH (5.0-8.5) Ur Specific [place] (1.002-1.035) Urine Protein (Neg-Trace) mg/dL Urine Glucose (UA) (Negative) mg/dL Urine Ketones (Negative) mg/dL Urine Occult Blood (Negative) Urine Nitrate (Negative) Urine Bilirubin (Negative) Urine Urobilinogen (Less than 2) mg/dL Ur Leukocyte Esterase (Negative) Urine RBC (0-3) /hpf Urine WBC (0-5) /hpf Ur Squamous Epith Cells (0-5) /hpf Urine Bacteria (None) /hpf Urine Mucus (Occasional) /lpf Micro UA Comment Ur Microscopic Review Urine Culture Comments CSF Volume (1) mL CSF Supernat Color (1) (Clear) CSF Gross Blood (1) (0) CSF Volume (2) mL CSF Supernat Color (2) (Clear) CSF Gross Blood (2) (0) CSF Volume (3) mL CSF Supernat Color (3) (Clear) CSF Gross Blood (3) (0) CSF Volume (4) mL CSF Supernat Color (4) (Clear) CSF Gross Blood (4) (0) CSF WBC (4) (0-10) /mm3 CSF RBC (4) (None) /mm3 CSF Neutrophils % % CSF Lymphocytes % % CSF Monocytes % % CSF Glucose (40-80) mg/dL CSF Total Protein (15.0-45.0) mg/dL Immunophenotypic Anal Marrow Immunophenotype Blood Type Antibody Screen Prewarmed Antibody Srcn Antibody Identification Antibody ID (Elution) Antigen Identification Direct Antiglob Test (Negative) MTS Gel Crossmatch Crossmatch P[place]armed Bld Prod Order Comment 11/24/18 Range/Units 05:59 WBC 16.7 H (4.0-11.0) th/mm3 RBC 3.09 L (4.00-5.30) mil/mm3 Hgb 10.1 L (11.6-15.3) gm/dL Hct 29.3 L (35.0-46.0) % MCV 94.8 (80.0-100.0) fL MCH 32.8 (27.0-34.0) pg MCHC 34.6 (32.0-36.0) % RDW 23.1 H (11.6-17.2) % Plt Count 375 (150-450) th/mm3 MPV 8.3 (7.0-11.0) fL Prelim Diff (Auto) Neut % (Auto) 67.4 (16.0-70.0) % Lymph % (Auto) 25.3 (9.0-44.0) % Snyder % (Auto) 6.8 (0.0-8.0) % Eos % (Auto) 0.2 (0.0-4.0) % Baso % (Auto) 0.3 (0.0-2.0) % Neut # (Auto) 11.3 H (1.8-7.7) th/mm3 Lymph # (Auto) 4.2 (1.0-4.8) th/mm3 Snyder # (Auto) 1.1 H (0.0-0.9) th/mm3 Eos # (Auto) 0.0 (0.0-0.4) th/mm3 Baso # (Auto) 0.0 (0.0-0.2) th/mm3 WBC Differential . Seg Neuts % (Manual) (16-70) % Band Neuts % (Manual) (0-6) % Lymphocytes % (Manual) (9-44) % Monocytes % (Manual) (0-8) % Eosinophils % (Manual) (0-4) % Basophils % (Manual) (0-2) % Metamyelocytes % (Man) (0-1) % Myelocytes % (Man) (0-0) % Abs Neuts (Manual) (1.8-7.7) th/mm3 Nucleated RBCs/100 WBC (0-0) /100 WBC Differential Comment Auto diff final Hypersegmented Neuts (None) Toxic Granulation (None) Platelet Estimate (Normal) Platelet Morphology (Normal) Dimorphic RBCs (None) Polychromasia (0.0-1.9) % Basophilic Stippling (None) Spherocytes (None) Pappenheimer Bodies (None) ESR (0-20) mm/hr Haptoglobin (30-200) mg/dL PT (9.8-11.6) sec INR Ratio APTT (23.4-31.7) sec Sodium (136-145) meq/L Potassium (3.5-5.1) meq/L Chloride (98-107) meq/L Carbon Dioxide (21.0-32.0) meq/L Anion Gap (5-15) meq/L BUN (7-18) mg/dL Creatinine (0.50-1.00) mg/dL Estimated GFR (>89) mL/min Random Glucose (74-106) mg/dL Lactic Acid (0.4-2.0) mmol/L Calcium (8.5-10.1) mg/dL Iron (50-170) mcg/dL TIBC (250-450) mcg/dL % Saturation (20-50) % Total Bilirubin (0.2-1.0) mg/dL AST (15-37) U/L ALT (10-53) U/L Alkaline Phosphatase (45-117) U/L Lactate Dehydrogenase (84-246) U/L Total Protein (6.4-8.2) g/dL Albumin (3.4-5.0) g/dL Vitamin B12 (193-986) pg/mL Folate (3.1-17.5) ng/mL TSH (0.358-3.740) uIU/mL Beta HCG, Qual (0-5) mIU/mL Urine Color (Yellw/Straw) Urine Clarity (Clear) Urine pH (5.0-8.5) Ur Specific [place] (1.002-1.035) Urine Protein (Neg-Trace) mg/dL Urine Glucose (UA) (Negative) mg/dL Urine Ketones (Negative) mg/dL Urine Occult Blood (Negative) Urine Nitrate (Negative) Urine Bilirubin (Negative) Urine Urobilinogen (Less than 2) mg/dL Ur Leukocyte Esterase (Negative) Urine RBC (0-3) /hpf Urine WBC (0-5) /hpf Ur Squamous Epith Cells (0-5) /hpf Urine Bacteria (None) /hpf Urine Mucus (Occasional) /lpf Micro UA Comment Ur Microscopic Review Urine Culture Comments CSF Volume (1) mL CSF Supernat Color (1) (Clear) CSF Gross Blood (1) (0) CSF Volume (2) mL CSF Supernat Color (2) (Clear) CSF Gross Blood (2) (0) CSF Volume (3) mL CSF Supernat Color (3) (Clear) CSF Gross Blood (3) (0) CSF Volume (4) mL CSF Supernat Color (4) (Clear) CSF Gross Blood (4) (0) CSF WBC (4) (0-10) /mm3 CSF RBC (4) (None) /mm3 CSF Neutrophils % % CSF Lymphocytes % % CSF Monocytes % % CSF Glucose (40-80) mg/dL CSF Total Protein (15.0-45.0) mg/dL Immunophenotypic Anal Marrow Immunophenotype Blood Type Antibody Screen Prewarmed Antibody Srcn Antibody Identification Antibody ID (Elution) Antigen Identification Direct Antiglob Test (Negative) MTS Gel Crossmatch Crossmatch Prewarmed Bld Prod Order Comment Imaging Data Radiologist's impression: Orbit MRI 11/19/18 17:54 CONCLUSION: Mild ethmoid sinusitis. Otherwise normal orbit MRI with and without contrast. Head/Brain Mag Res Venography 11/20/18 00:00 CONCLUSION: 1. Negative MRV Brain with and without contrast. Lumbar Puncture Fluoroscopy 11/20/18 00:00 CONCLUSION: 1. Uncomplicated fluoroscopically guided lumbar puncture. 2. Abnormally elevated opening pressures of 44 cm of water. Closing pressures of 9 cm of water after removing 31 cc of CSF. Findings are characteristic of pseudotumor cerebri. Head CT 11/20/18 13:56 CONCLUSION: 1. No acute intracranial abnormality. . Abdomen/Pelvis CT 11/21/18 00:00 CONCLUSION: 1. Normal CT abdomen/pelvis with contrast. Chest CT 11/21/18 00:00 CONCLUSION: 1. A few scattered small areas of increased ground substance in both lungs without focal consolidation or nodularity. 2. No evidence of adenopathy. Bone Marrow Biopsy w/ CT 11/22/18 00:00 CONCLUSION: 1. Uncomplicated CT guided bone marrow aspirate. 2. Uncomplicated CT guided bone marrow biopsy. Discharge Plan Discharge Disposition Patient Disposition: ED Admit(ED Internal Use Only) Discharge Order Discharge Orders: ED Use Only Admit Order (Routine); Ordered 11/19/18 Ordered By: Mari Donahue Discharge Details Diagnosis: Papilledema, Symptomatic anemia, Leukocytosis Physicians Team ED Provider: Mari Donahue Primary Care Provider: Primary Care Jeremyi,No Attending Provider: Ajit Suarez Other Providers: Viktor Wood ; Hernán Huggins ; Kieran Ricks Status ED Status: Left Department Discharge Information Discharge Date/Time: 11/20/18 05:15
[2018-11-19 18:13] LABS: Baso # (Auto) 0.1 th/mm3 (0.0-0.2); Baso % (Auto) 0.6 % (0.0-2.0); Eos % (Auto) 0.2 % (0.0-4.0); Lymph # (Auto) 3.1 th/mm3 (1.0-4.8); Lymph % (Auto) 13.9 % (9.0-44.0); Mean Corpuscular HGB Conc 33.1 % (32.0-36.0); Mean Corpuscular Hemoglobin 35.2 pg (27.0-34.0); Mean Corpuscular Volume 106.3 fL (80.0-100.0); Mean Platelet Volume 7.4 fL (7.0-11.0); Mono # (Auto) 1.6 th/mm3 (0.0-0.9); Mono % (Auto) 7.3 % (0.0-8.0); Neut # (Auto) 17.3 th/mm3 (1.8-7.7); Platelet Count 424 th/mm3 (150-450); Red Blood Count 1.84 mil/mm3 (4.00-5.30); Red Cell Distribution Width 27.9 % (11.6-17.2); White Blood Count 22.2 th/mm3 (4.0-11.0)
[2018-11-19 18:24] LABS: Hematocrit 19.5 % (35.0-46.0); Hemoglobin 6.5 gm/dL (11.6-15.3)
[2018-11-19 18:28] LABS: Activated Partial Thrombo Time 32.7 sec (23.4-31.7); Prothrombin Time 10.4 sec (9.8-11.6)
[2018-11-19] MEDS ORDERED: Piperacil/Tazo 3.375 GM Premix 3.375 GM/50 ML PIGGYBACK IV.SIG ONE (18:36)
[2018-11-19 18:42] LABS: Alanine Aminotransferase 20 U/L (10-53); Albumin 4.2 g/dL (3.4-5.0); Anion Gap 6 meq/L (5-15); Aspartate Aminotransferase 38 U/L (15-37); Blood Urea Nitrogen 16 mg/dL (7-18); Calcium 8.5 mg/dL (8.5-10.1); Carbon Dioxide 27.7 meq/L (21.0-32.0); Chloride 104 meq/L (98-107); Glomerular Filtration Rate Greater Than 89 mL/min (>89); Glucose,Random 117 mg/dL (74-106); Potassium 3.7 meq/L (3.5-5.1); Sodium 138 meq/L (136-145)
[2018-11-19 18:44] LABS: Alkaline Phosphatase 92 U/L (45-117); Total Protein 7.7 g/dL (6.4-8.2)
[2018-11-19] MEDS ORDERED: Sodium Chlor 0.9% Inj 250 ML IV.SIG SCH (19:00)
[2018-11-19 19:26] LABS: Eosinophils 1 % (0-4); Lymphocytes 15 % (9-44); Monocytes 1 % (0-8); Tallied Nucleated RBC 18 (0-0)
[2018-11-19 19:27] LABS: Platelet Morphology Normal (Normal)
[2018-11-19 19:36] LABS: Toxic Granulation 1+
[2018-11-19 19:40] LABS: Spherocytes 2+
[2018-11-19 20:26] LABS: Bacteria,Urine Rare /hpf; Bilirubin,Urine Negative (Negative); Clarity,Urine Clear (Clear); Color,Urine Yellow (Yellw/Straw); Glucose,Urine (UA) Negative (Negative); Leukocyte Esterase,Urine Negative (Negative); Mucus,Urine Few /lpf (Occasional); Nitrite,Urine Negative (Negative); Specific Gravity,Urine 1.017 (1.002-1.035); Squamous Epithelial Cell,Urine <1 /hpf (0-5)
[2018-11-19] MEDS ORDERED: Gadobutrol PF 7.5 MMOL/7.5 ML Vial (for RAD) IV.SIG ONE (20:31)
--- NOTE | 2018-11-19 20:35 | ED ---
HPI General Chief complaint: Eye Problems Stated complaint: eye problem Time Seen by Provider: 11/19/18 17:22 Source: patient Mode of arrival: ambulatory Limitations: no limitations History of Present Illness HPI narrative: Amanda is a 28 year old female presenting to the ED for evaluation of vision changes and other symptoms she has been concerned about. She reports that a few weeks ago she noticed that her ears "felt clogged". About a week later, she noticed that her ears started to have pressure-like feeling and a "heartbeat sound" along with ringing that increased when she was laying down. A week after that her neck felt tense, stiff, and sore. She states that caused her to have headaches almost everyday in the back of the head, originating in her neck. Upon rapid movement, she gets sharp pain in the temporal region of her head, bilaterally. Last Sunday, she noticed a "lingering flash" and "floating orbs of light" randomly in the day. About 2 days later, she noticed a shadow that is more central and not in a specific eye. She states in dim light she has a hard time distinguishing her 's facial features. This shadow has not progressed or gotten better since. Other associated symptoms include shortness of breath and heart racing when she goes up the stairs which is unusual for her. In addition, she feels like she can't stand for long periods of time and experiences a soreness in her legs. She also experiences soreness in her arms when she is working on the computer for five minutes. She also states pain in her jaw with chewing food that was not present before. She states she is not a vegan or vegetarian and eats a diet consisting mainly of fast food. She reports generalized fatigue. She reports increased urinary frequency and a dark yellow colored urine. She denies fever, chills, focal weakness, diarrhea, nausea, vomiting. Severity scale (1-10): 4 Related Data Home Medications Medication Instructions Recorded Confirmed amoxicillin 875 mg PO BID 11/19/18 11/19/18 methocarbamol 750 mg PO BID 11/19/18 11/19/18 methylprednisolone 4 mg PO PER PKG DIR 11/19/18 11/19/18 Allergies Allergy/AdvReac Type Severity Reaction Status Date / Time No Known Allergies Allergy Verified 11/19/18 17:44 [facility] Medical History Medical History Patient denies medical problems (Acute) Surgical History Surgical History History of tonsillectomy (Acute) Social History Social History Substance History: No History of Abuse Second Hand Smoke Exposure: No Smoking Status: Never smoker How Often Do You Have a Drink Containing Alcohol: 4 or more times a week Recent Travel in [facility] within the Last 8 Weeks: Yes Recent Out of Country Travel within the Last 8 Weeks: Yes Immunization History Tetanus Immunization: <5 Years Course Initial Documented Vital Signs Temperature 97.7 F 11/19/18 15:30 Pulse Rate 112 H 11/19/18 15:30 Respiratory Rate 16 11/19/18 15:30 Blood Pressure 139/60 11/19/18 15:30 Pulse Oximetry 99 11/19/18 15:30 Last Documented Vital Signs Temperature 97.5 F L 11/20/18 12:16 Pulse Rate 89 11/20/18 12:16 Respiratory Rate 20 11/20/18 12:16 Blood Pressure 118/71 11/20/18 12:16 Pulse Oximetry 99 11/20/18 12:16 Sign Out Sign Out Data: Patient Sign Out occurred on 11/19/18 at 19:57. Patient's care was discussed, and care was transferred from Yen Gale to Mari Donahue MD. Sign Out Comment: Patient pending mri of brain and then admission to hospital. Last updated by Yen Gale at 11/19/18 19:05 Post-Handoff Eval: The patient's case was checked out to me by Dr. Gale. Please see her initial history and physical. The patient's case was checked out to me at the conclusion of her shift. The patient is pending MRI of the brain. The patient presented with reports of not feeling well for the last few weeks. She reports that she began to have a pressure sensation in bilateral ears. She reports having a pressure sensation about the back of the head. The patient reports that she went to a local urgent care center and was treated with amoxicillin for suspected ear infection. The patient reports that the symptoms continued and she then began to have changes in her vision with shadows in her vision. She reports that she was seen by an eye doctor earlier today for examination and was noted to have papilledema. The patient was sent to the emergency department for an MRI of the orbit with and without contrast and admission for further evaluation. During the course of the patient's emergency department visit, the patient was placed on a residential monitor with oximetry and frequent blood pressure monitoring. The patient had IV access obtained and blood work sent for analysis. The patient was initially provided by Dr. Gale, normal saline 1 L IV fluid bolus. After the patient's white blood cell count came back elevated, the patient was treated with Zosyn 3.375 g IV, Blood cultures x2 were collected and a lactic acid was sent for analysis. The patient's diagnostic studies are remarkable for the elevated white blood cell count noted by Dr. Gale, hemoglobin 6.5. The patient reports a regular menstrual cycle that usually last for 4 days and is not typically heavy. Rectal exam was done by me to evaluate for possible underlying GI bleed. No significant stool was present in the rectal vault, however mucus was Hemoccult negative. The patient is noted to have an elevated MCV suspicious for iron deficiency anemia, platelets are 424, neutrophils 78, PT is 10.4, PTT 32.7, chemistries remarkable for glucose of 117, lactic acid within normal limits at 1.2, total bilirubin is 3.5, AST is 38. Urinalysis shows moderate occult blood , 27 RBCs, 7 WBCs, rare bacteria, culture not indicated. The blood in the patient's urine is likely related to her menstrual cycle as she is currently on it. Given the possibility of a hemolytic disease causing the patient's anemia, an LDH and haptoglobin was ordered. The patient's MRI of the orbits with and without contrast was read by the reading radiologist as showing mild ethmoid sinusitis, otherwise normal orbit MRI with and without contrast. The patient's case including history, pertinent physical examination findings, and laboratory studies were discussed with []. It was agreed that the patient would be admitted to the [] hospitalist service. The patient's results were discussed with the patient, including the plan of care. I explained that further testing and/ or monitoring is indicated based on the patient's history, examination, and/ or laboratory findings. Therefore, I recommended admission for additional evaluation. The patient expressed understanding and was agreeable with this plan. The patient was admitted to the hospital in [-] condition and sent to a bed under the care of [-]. Medical Decision Making Lab Data Result diagrams: 11/19/18 18:00 11/19/18 18:00 POC Results POC Urine Results Negative Lab Results 11/19/18 11/19/18 11/19/18 Range/Units 18:00 18:00 18:00 WBC 22.2 H (4.0-11.0) th/mm3 RBC 1.84 L (4.00-5.30) mil/mm3 Hgb 6.5 L* (11.6-15.3) gm/dL Hct 19.5 L* (35.0-46.0) % MCV 106.3 H (80.0-100.0) fL MCH 35.2 H (27.0-34.0) pg MCHC 33.1 (32.0-36.0) % RDW 27.9 H (11.6-17.2) % Plt Count 424 (150-450) th/mm3 MPV 7.4 (7.0-11.0) fL Prelim Diff (Auto) Slide review pending Neut % (Auto) 78.0 H (16.0-70.0) % Lymph % (Auto) 13.9 (9.0-44.0) % [place] % (Auto) 7.3 (0.0-8.0) % Eos % (Auto) 0.2 (0.0-4.0) % Baso % (Auto) 0.6 (0.0-2.0) % Neut # (Auto) 17.3 H (1.8-7.7) th/mm3 Lymph # (Auto) 3.1 (1.0-4.8) th/mm3 [place] # (Auto) 1.6 H (0.0-0.9) th/mm3 Eos # (Auto) 0.0 (0.0-0.4) th/mm3 Baso # (Auto) 0.1 (0.0-0.2) th/mm3 WBC Differential Manual diff final Seg Neuts % (Manual) 77 H (16-70) % Band Neuts % (Manual) 5 (0-6) % Lymphocytes % (Manual) 15 (9-44) % Monocytes % (Manual) 1 (0-8) % Eosinophils % (Manual) 1 (0-4) % Basophils % (Manual) 1 (0-2) % Abs Neuts (Manual) 18.2 H (1.8-7.7) th/mm3 Nucleated RBCs/100 WBC 18 H (0-0) /100 WBC Differential Comment . Toxic Granulation 1+ H (None) Platelet Estimate High H (Normal) Platelet Morphology Normal (Normal) Polychromasia 4.0 H (0.0-1.9) % Basophilic Stippling Faint H (None) Spherocytes 2+ H (None) ESR (0-20) mm/hr Haptoglobin (30-200) mg/dL PT 10.4 (9.8-11.6) sec INR 1.0 Ratio APTT 32.7 H (23.4-31.7) sec Sodium 138 (136-145) meq/L Potassium 3.7 (3.5-5.1) meq/L Chloride 104 (98-107) meq/L Carbon Dioxide 27.7 (21.0-32.0) meq/L Anion Gap 6 (5-15) meq/L BUN 16 (7-18) mg/dL Creatinine 0.73 (0.50-1.00) mg/dL Estimated GFR Greater than 89 (>89) mL/min Random Glucose 117 H (74-106) mg/dL Lactic Acid (0.4-2.0) mmol/L Calcium 8.5 (8.5-10.1) mg/dL Iron (50-170) mcg/dL TIBC (250-450) mcg/dL % Saturation (20-50) % Total Bilirubin 3.5 H (0.2-1.0) mg/dL AST 38 H (15-37) U/L ALT 20 (10-53) U/L Alkaline Phosphatase 92 (45-117) U/L Lactate Dehydrogenase (84-246) U/L Total Protein 7.7 (6.4-8.2) g/dL Albumin 4.2 (3.4-5.0) g/dL Urine Color (Yellw/Straw) Urine Clarity (Clear) Urine pH (5.0-8.5) Ur Specific [place] (1.002-1.035) Urine Protein (Neg-Trace) mg/dL Urine Glucose (UA) (Negative) mg/dL Urine Ketones (Negative) mg/dL Urine Occult Blood (Negative) Urine Nitrate (Negative) Urine Bilirubin (Negative) Urine Urobilinogen (Less than 2) mg/dL Ur Leukocyte Esterase (Negative) Urine RBC (0-3) /hpf Urine WBC (0-5) /hpf Ur Squamous Epith Cells (0-5) /hpf Urine Bacteria (None) /hpf Urine Mucus (Occasional) /lpf Micro UA Comment Ur Microscopic Review Urine Culture Comments CSF Volume (1) mL CSF Supernat Color (1) (Clear) CSF Gross Blood (1) (0) CSF Volume (2) mL CSF Supernat Color (2) (Clear) CSF Gross Blood (2) (0) CSF Volume (3) mL CSF Supernat Color (3) (Clear) CSF Gross Blood (3) (0) CSF Volume (4) mL CSF Supernat Color (4) (Clear) CSF Gross Blood (4) (0) CSF WBC (4) (0-10) /mm3 CSF RBC (4) (None) /mm3 CSF Neutrophils % % CSF Lymphocytes % % CSF Monocytes % % CSF Glucose (40-80) mg/dL CSF Total Protein (15.0-45.0) mg/dL Blood Type Antibody Screen Prewarmed Antibody Srcn Antibody Identification Antibody ID (Elution) Antigen Identification Direct Antiglob Test (Negative) MTS Gel Crossmatch Crossmatch Prewarmed Bld Prod Order Comment 11/19/18 11/19/18 11/19/18 Range/Units 18:00 18:44 18:44 WBC (4.0-11.0) th/mm3 RBC (4.00-5.30) mil/mm3 Hgb (11.6-15.3) gm/dL Hct (35.0-46.0) % MCV (80.0-100.0) fL MCH (27.0-34.0) pg MCHC (32.0-36.0) % RDW (11.6-17.2) % Plt Count (150-450) th/mm3 MPV (7.0-11.0) fL Prelim Diff (Auto) Neut % (Auto) (16.0-70.0) % Lymph % (Auto) (9.0-44.0) % [place] % (Auto) (0.0-8.0) % Eos % (Auto) (0.0-4.0) % Baso % (Auto) (0.0-2.0) % Neut # (Auto) (1.8-7.7) th/mm3 Lymph # (Auto) (1.0-4.8) th/mm3 [place] # (Auto) (0.0-0.9) th/mm3 Eos # (Auto) (0.0-0.4) th/mm3 Baso # (Auto) (0.0-0.2) th/mm3 WBC Differential Seg Neuts % (Manual) (16-70) % Band Neuts % (Manual) (0-6) % Lymphocytes % (Manual) (9-44) % Monocytes % (Manual) (0-8) % Eosinophils % (Manual) (0-4) % Basophils % (Manual) (0-2) % Abs Neuts (Manual) (1.8-7.7) th/mm3 Nucleated RBCs/100 WBC (0-0) /100 WBC Differential Comment Toxic Granulation (None) Platelet Estimate (Normal) Platelet Morphology (Normal) Polychromasia (0.0-1.9) % Basophilic Stippling (None) Spherocytes (None) ESR (0-20) mm/hr Haptoglobin (30-200) mg/dL PT (9.8-11.6) sec INR Ratio APTT (23.4-31.7) sec Sodium (136-145) meq/L Potassium (3.5-5.1) meq/L Chloride (98-107) meq/L Carbon Dioxide (21.0-32.0) meq/L Anion Gap (5-15) meq/L BUN (7-18) mg/dL Creatinine (0.50-1.00) mg/dL Estimated GFR (>89) mL/min Random Glucose (74-106) mg/dL Lactic Acid 1.2 (0.4-2.0) mmol/L Calcium (8.5-10.1) mg/dL Iron 106 (50-170) mcg/dL TIBC 406 (250-450) mcg/dL % Saturation 26.1 (20-50) % Total Bilirubin (0.2-1.0) mg/dL AST (15-37) U/L ALT (10-53) U/L Alkaline Phosphatase (45-117) U/L Lactate Dehydrogenase (84-246) U/L Total Protein (6.4-8.2) g/dL Albumin (3.4-5.0) g/dL Urine Color (Yellw/Straw) Urine Clarity (Clear) Urine pH (5.0-8.5) Ur Specific [place] (1.002-1.035) Urine Protein (Neg-Trace) mg/dL Urine Glucose (UA) (Negative) mg/dL Urine Ketones (Negative) mg/dL Urine Occult Blood (Negative) Urine Nitrate (Negative) Urine Bilirubin (Negative) Urine Urobilinogen (Less than 2) mg/dL Ur Leukocyte Esterase (Negative) Urine RBC (0-3) /hpf Urine WBC (0-5) /hpf Ur Squamous Epith Cells (0-5) /hpf Urine Bacteria (None) /hpf Urine Mucus (Occasional) /lpf Micro UA Comment Ur Microscopic Review Urine Culture Comments CSF Volume (1) mL CSF Supernat Color (1) (Clear) CSF Gross Blood (1) (0) CSF Volume (2) mL CSF Supernat Color (2) (Clear) CSF Gross Blood (2) (0) CSF Volume (3) mL CSF Supernat Color (3) (Clear) CSF Gross Blood (3) (0) CSF Volume (4) mL CSF Supernat Color (4) (Clear) CSF Gross Blood (4) (0) CSF WBC (4) (0-10) /mm3 CSF RBC (4) (None) /mm3 CSF Neutrophils % % CSF Lymphocytes % % CSF Monocytes % % CSF Glucose (40-80) mg/dL CSF Total Protein (15.0-45.0) mg/dL Blood Type O Positive Antibody Screen Positive H Prewarmed Antibody Srcn Antibody Identification Antibody ID (Elution) Antigen Identification e Antigen - POSITIVE Direct Antiglob Test (Negative) MTS Gel Crossmatch Crossmatch Prewarmed Bld Prod Order Comment 11/19/18 11/19/18 11/19/18 Range/Units 18:44 18:44 19:35 WBC (4.0-11.0) th/mm3 RBC (4.00-5.30) mil/mm3 Hgb (11.6-15.3) gm/dL Hct (35.0-46.0) % MCV (80.0-100.0) fL MCH (27.0-34.0) pg MCHC (32.0-36.0) % RDW (11.6-17.2) % Plt Count (150-450) th/mm3 MPV (7.0-11.0) fL Prelim Diff (Auto) Neut % (Auto) (16.0-70.0) % Lymph % (Auto) (9.0-44.0) % [place] % (Auto) (0.0-8.0) % Eos % (Auto) (0.0-4.0) % Baso % (Auto) (0.0-2.0) % Neut # (Auto) (1.8-7.7) th/mm3 Lymph # (Auto) (1.0-4.8) th/mm3 [place] # (Auto) (0.0-0.9) th/mm3 Eos # (Auto) (0.0-0.4) th/mm3 Baso # (Auto) (0.0-0.2) th/mm3 WBC Differential Seg Neuts % (Manual) (16-70) % Band Neuts % (Manual) (0-6) % Lymphocytes % (Manual) (9-44) % Monocytes % (Manual) (0-8) % Eosinophils % (Manual) (0-4) % Basophils % (Manual) (0-2) % Abs Neuts (Manual) (1.8-7.7) th/mm3 Nucleated RBCs/100 WBC (0-0) /100 WBC Differential Comment Toxic Granulation (None) Platelet Estimate (Normal) Platelet Morphology (Normal) Polychromasia (0.0-1.9) % Basophilic Stippling (None) Spherocytes (None) ESR (0-20) mm/hr Haptoglobin (30-200) mg/dL PT (9.8-11.6) sec INR Ratio APTT (23.4-31.7) sec Sodium (136-145) meq/L Potassium (3.5-5.1) meq/L Chloride (98-107) meq/L Carbon Dioxide (21.0-32.0) meq/L Anion Gap (5-15) meq/L BUN (7-18) mg/dL Creatinine (0.50-1.00) mg/dL Estimated GFR (>89) mL/min Random Glucose (74-106) mg/dL Lactic Acid (0.4-2.0) mmol/L Calcium (8.5-10.1) mg/dL Iron (50-170) mcg/dL TIBC (250-450) mcg/dL % Saturation (20-50) % Total Bilirubin (0.2-1.0) mg/dL AST (15-37) U/L ALT (10-53) U/L Alkaline Phosphatase (45-117) U/L Lactate Dehydrogenase (84-246) U/L Total Protein (6.4-8.2) g/dL Albumin (3.4-5.0) g/dL Urine Color Yellow (Yellw/Straw) Urine Clarity Clear (Clear) Urine pH 6.0 (5.0-8.5) Ur Specific [place]nett 1.017 (1.002-1.035) Urine Protein Negative (Neg-Trace) mg/dL Urine Glucose (UA) Negative (Negative) mg/dL Urine Ketones Negative (Negative) mg/dL Urine Occult Blood Moderate H (Negative) Urine Nitrate Negative (Negative) Urine Bilirubin Negative (Negative) Urine Urobilinogen Less than 2 (Less than 2) mg/dL Ur Leukocyte Esterase Negative (Negative) Urine RBC 27 H (0-3) /hpf Urine WBC 7 H (0-5) /hpf Ur Squamous Epith Cells <1 (0-5) /hpf Urine Bacteria Rare H (None) /hpf Urine Mucus Few H (Occasional) /lpf Micro UA Comment Culture not ind Ur Microscopic Review Not Reportable Urine Culture Comments Culture not ind CSF Volume (1) mL CSF Supernat Color (1) (Clear) CSF Gross Blood (1) (0) CSF Volume (2) mL CSF Supernat Color (2) (Clear) CSF Gross Blood (2) (0) CSF Volume (3) mL CSF Supernat Color (3) (Clear) CSF Gross Blood (3) (0) CSF Volume (4) mL CSF Supernat Color (4) (Clear) CSF Gross Blood (4) (0) CSF WBC (4) (0-10) /mm3 CSF RBC (4) (None) /mm3 CSF Neutrophils % % CSF Lymphocytes % % CSF Monocytes % % CSF Glucose (40-80) mg/dL CSF Total Protein (15.0-45.0) mg/dL Blood Type Antibody Screen Prewarmed Antibody Srcn Antibody Identification Antibody ID (Elution) Antigen Identification Direct Antiglob Test Strongly positive H (Negative) MTS Gel Crossmatch See Detail Crossmatch Prewarmed See Detail Bld Prod Order Comment 11/19/18 11/19/18 11/19/18 Range/Units 20:22 20:53 20:53 WBC (4.0-11.0) th/mm3 RBC (4.00-5.30) mil/mm3 Hgb (11.6-15.3) gm/dL Hct (35.0-46.0) % MCV (80.0-100.0) fL MCH (27.0-34.0) pg MCHC (32.0-36.0) % RDW (11.6-17.2) % Plt Count (150-450) th/mm3 MPV (7.0-11.0) fL Prelim Diff (Auto) Neut % (Auto) (16.0-70.0) % Lymph % (Auto) (9.0-44.0) % [place] % (Auto) (0.0-8.0) % Eos % (Auto) (0.0-4.0) % Baso % (Auto) (0.0-2.0) % Neut # (Auto) (1.8-7.7) th/mm3 Lymph # (Auto) (1.0-4.8) th/mm3 [place] # (Auto) (0.0-0.9) th/mm3 Eos # (Auto) (0.0-0.4) th/mm3 Baso # (Auto) (0.0-0.2) th/mm3 WBC Differential Seg Neuts % (Manual) (16-70) % Band Neuts % (Manual) (0-6) % Lymphocytes % (Manual) (9-44) % Monocytes % (Manual) (0-8) % Eosinophils % (Manual) (0-4) % Basophils % (Manual) (0-2) % Abs Neuts (Manual) (1.8-7.7) th/mm3 Nucleated RBCs/100 WBC (0-0) /100 WBC Differential Comment Toxic Granulation (None) Platelet Estimate (Normal) Platelet Morphology (Normal) Polychromasia (0.0-1.9) % Basophilic Stippling (None) Spherocytes (None) ESR 82 H (0-20) mm/hr Haptoglobin Less than 10 L (30-200) mg/dL PT (9.8-11.6) sec INR Ratio APTT (23.4-31.7) sec Sodium (136-145) meq/L Potassium (3.5-5.1) meq/L Chloride (98-107) meq/L Carbon Dioxide (21.0-32.0) meq/L Anion Gap (5-15) meq/L BUN (7-18) mg/dL Creatinine (0.50-1.00) mg/dL Estimated GFR (>89) mL/min Random Glucose (74-106) mg/dL Lactic Acid (0.4-2.0) mmol/L Calcium (8.5-10.1) mg/dL Iron (50-170) mcg/dL TIBC (250-450) mcg/dL % Saturation (20-50) % Total Bilirubin (0.2-1.0) mg/dL AST (15-37) U/L ALT (10-53) U/L Alkaline Phosphatase (45-117) U/L Lactate Dehydrogenase 686 H (84-246) U/L Total Protein (6.4-8.2) g/dL Albumin (3.4-5.0) g/dL Urine Color (Yellw/Straw) Urine Clarity (Clear) Urine pH (5.0-8.5) Ur Specific [place] (1.002-1.035) Urine Protein (Neg-Trace) mg/dL Urine Glucose (UA) (Negative) mg/dL Urine Ketones (Negative) mg/dL Urine Occult Blood (Negative) Urine Nitrate (Negative) Urine Bilirubin (Negative) Urine Urobilinogen (Less than 2) mg/dL Ur Leukocyte Esterase (Negative) Urine RBC (0-3) /hpf Urine WBC (0-5) /hpf Ur Squamous Epith Cells (0-5) /hpf Urine Bacteria (None) /hpf Urine Mucus (Occasional) /lpf Micro UA Comment Ur Microscopic Review Urine Culture Comments CSF Volume (1) mL CSF Supernat Color (1) (Clear) CSF Gross Blood (1) (0) CSF Volume (2) mL CSF Supernat Color (2) (Clear) CSF Gross Blood (2) (0) CSF Volume (3) mL CSF Supernat Color (3) (Clear) CSF Gross Blood (3) (0) CSF Volume (4) mL CSF Supernat Color (4) (Clear) CSF Gross Blood (4) (0) CSF WBC (4) (0-10) /mm3 CSF RBC (4) (None) /mm3 CSF Neutrophils % % CSF Lymphocytes % % CSF Monocytes % % CSF Glucose (40-80) mg/dL CSF Total Protein (15.0-45.0) mg/dL Blood Type Antibody Screen Prewarmed Antibody Srcn Antibody Identification Non-Specific Cold Agglutinin Antibody ID (Elution) Antigen Identification Direct Antiglob Test (Negative) MTS Gel Crossmatch Crossmatch Prewarmed Bld Prod Order Comment 11/20/18 11/20/18 11/20/18 Range/Units 00:51 11:01 11:01 WBC (4.0-11.0) th/mm3 RBC (4.00-5.30) mil/mm3 Hgb (11.6-15.3) gm/dL Hct (35.0-46.0) % MCV (80.0-100.0) fL MCH (27.0-34.0) pg MCHC (32.0-36.0) % RDW (11.6-17.2) % Plt Count (150-450) th/mm3 MPV (7.0-11.0) fL Prelim Diff (Auto) Neut % (Auto) (16.0-70.0) % Lymph % (Auto) (9.0-44.0) % [place] % (Auto) (0.0-8.0) % Eos % (Auto) (0.0-4.0) % Baso % (Auto) (0.0-2.0) % Neut # (Auto) (1.8-7.7) th/mm3 Lymph # (Auto) (1.0-4.8) th/mm3 [place] # (Auto) (0.0-0.9) th/mm3 Eos # (Auto) (0.0-0.4) th/mm3 Baso # (Auto) (0.0-0.2) th/mm3 WBC Differential Seg Neuts % (Manual) (16-70) % Band Neuts % (Manual) (0-6) % Lymphocytes % (Manual) (9-44) % Monocytes % (Manual) (0-8) % Eosinophils % (Manual) (0-4) % Basophils % (Manual) (0-2) % Abs Neuts (Manual) (1.8-7.7) th/mm3 Nucleated RBCs/100 WBC (0-0) /100 WBC Differential Comment Toxic Granulation (None) Platelet Estimate (Normal) Platelet Morphology (Normal) Polychromasia (0.0-1.9) % Basophilic Stippling (None) Spherocytes (None) ESR (0-20) mm/hr Haptoglobin (30-200) mg/dL PT (9.8-11.6) sec INR Ratio APTT (23.4-31.7) sec Sodium (136-145) meq/L Potassium (3.5-5.1) meq/L Chloride (98-107) meq/L Carbon Dioxide (21.0-32.0) meq/L Anion Gap (5-15) meq/L BUN (7-18) mg/dL Creatinine (0.50-1.00) mg/dL Estimated GFR (>89) mL/min Random Glucose (74-106) mg/dL Lactic Acid (0.4-2.0) mmol/L Calcium (8.5-10.1) mg/dL Iron (50-170) mcg/dL TIBC (250-450) mcg/dL % Saturation (20-50) % Total Bilirubin (0.2-1.0) mg/dL AST (15-37) U/L ALT (10-53) U/L Alkaline Phosphatase (45-117) U/L Lactate Dehydrogenase (84-246) U/L Total Protein (6.4-8.2) g/dL Albumin (3.4-5.0) g/dL Urine Color (Yellw/Straw) Urine Clarity (Clear) Urine pH (5.0-8.5) Ur Specific [place] (1.002-1.035) Urine Protein (Neg-Trace) mg/dL Urine Glucose (UA) (Negative) mg/dL Urine Ketones (Negative) mg/dL Urine Occult Blood (Negative) Urine Nitrate (Negative) Urine Bilirubin (Negative) Urine Urobilinogen (Less than 2) mg/dL Ur Leukocyte Esterase (Negative) Urine RBC (0-3) /hpf Urine WBC (0-5) /hpf Ur Squamous Epith Cells (0-5) /hpf Urine Bacteria (None) /hpf Urine Mucus (Occasional) /lpf Micro UA Comment Ur Microscopic Review Urine Culture Comments CSF Volume (1) mL CSF Supernat Color (1) (Clear) CSF Gross Blood (1) (0) CSF Volume (2) mL CSF Supernat Color (2) (Clear) CSF Gross Blood (2) (0) CSF Volume (3) mL CSF Supernat Color (3) (Clear) CSF Gross Blood (3) (0) CSF Volume (4) mL CSF Supernat Color (4) (Clear) CSF Gross Blood (4) (0) CSF WBC (4) (0-10) /mm3 CSF RBC (4) (None) /mm3 CSF Neutrophils % % CSF Lymphocytes % % CSF Monocytes % % CSF Glucose 57 (40-80) mg/dL CSF Total Protein 35.2 (15.0-45.0) mg/dL Blood Type Antibody Screen Prewarmed Antibody Srcn Positive H Antibody Identification Antibody ID (Elution) Antigen Identification e Antigen - POSITIVE Direct Antiglob Test (Negative) MTS Gel Crossmatch Crossmatch Prewarmed Bld Prod Order Comment 11/20/18 11/20/18 Range/Units 11:01 14:00 WBC (4.0-11.0) th/mm3 RBC (4.00-5.30) mil/mm3 Hgb (11.6-15.3) gm/dL Hct (35.0-46.0) % MCV (80.0-100.0) fL MCH (27.0-34.0) pg MCHC (32.0-36.0) % RDW (11.6-17.2) % Plt Count (150-450) th/mm3 MPV (7.0-11.0) fL Prelim Diff (Auto) Neut % (Auto) (16.0-70.0) % Lymph % (Auto) (9.0-44.0) % [place] % (Auto) (0.0-8.0) % Eos % (Auto) (0.0-4.0) % Baso % (Auto) (0.0-2.0) % Neut # (Auto) (1.8-7.7) th/mm3 Lymph # (Auto) (1.0-4.8) th/mm3 [place] # (Auto) (0.0-0.9) th/mm3 Eos # (Auto) (0.0-0.4) th/mm3 Baso # (Auto) (0.0-0.2) th/mm3 WBC Differential Seg Neuts % (Manual) (16-70) % Band Neuts % (Manual) (0-6) % Lymphocytes % (Manual) (9-44) % Monocytes % (Manual) (0-8) % Eosinophils % (Manual) (0-4) % Basophils % (Manual) (0-2) % Abs Neuts (Manual) (1.8-7.7) th/mm3 Nucleated RBCs/100 WBC (0-0) /100 WBC Differential Comment Toxic Granulation (None) Platelet Estimate (Normal) Platelet Morphology (Normal) Polychromasia (0.0-1.9) % Basophilic Stippling (None) Spherocytes (None) ESR (0-20) mm/hr Haptoglobin (30-200) mg/dL PT (9.8-11.6) sec INR Ratio APTT (23.4-31.7) sec Sodium (136-145) meq/L Potassium (3.5-5.1) meq/L Chloride (98-107) meq/L Carbon Dioxide (21.0-32.0) meq/L Anion Gap (5-15) meq/L BUN (7-18) mg/dL Creatinine (0.50-1.00) mg/dL Estimated GFR (>89) mL/min Random Glucose (74-106) mg/dL Lactic Acid (0.4-2.0) mmol/L Calcium (8.5-10.1) mg/dL Iron (50-170) mcg/dL TIBC (250-450) mcg/dL % Saturation (20-50) % Total Bilirubin (0.2-1.0) mg/dL AST (15-37) U/L ALT (10-53) U/L Alkaline Phosphatase (45-117) U/L Lactate Dehydrogenase (84-246) U/L Total Protein (6.4-8.2) g/dL Albumin (3.4-5.0) g/dL Urine Color (Yellw/Straw) Urine Clarity (Clear) Urine pH (5.0-8.5) Ur Specific [place] (1.002-1.035) Urine Protein (Neg-Trace) mg/dL Urine Glucose (UA) (Negative) mg/dL Urine Ketones (Negative) mg/dL Urine Occult Blood (Negative) Urine Nitrate (Negative) Urine Bilirubin (Negative) Urine Urobilinogen (Less than 2) mg/dL Ur Leukocyte Esterase (Negative) Urine RBC (0-3) /hpf Urine WBC (0-5) /hpf Ur Squamous Epith Cells (0-5) /hpf Urine Bacteria (None) /hpf Urine Mucus (Occasional) /lpf Micro UA Comment Ur Microscopic Review Urine Culture Comments CSF Volume (1) 8.0 mL CSF Supernat Color (1) Clear (Clear) CSF Gross Blood (1) Trace (0) CSF Volume (2) 8.3 mL CSF Supernat Color (2) Clear (Clear) CSF Gross Blood (2) 0 (0) CSF Volume (3) 7.0 mL CSF Supernat Color (3) Clear (Clear) CSF Gross Blood (3) 0 (0) CSF Volume (4) 7.5 mL CSF Supernat Color (4) Clear (Clear) CSF Gross Blood (4) 0 (0) CSF WBC (4) 1 (0-10) /mm3 CSF RBC (4) 2 H (None) /mm3 CSF Neutrophils % 14 % CSF Lymphocytes % 79 % CSF Monocytes % 7 % CSF Glucose (40-80) mg/dL CSF Total Protein (15.0-45.0) mg/dL Blood Type Antibody Screen Prewarmed Antibody Srcn Antibody Identification Antibody ID (Elution) Panagglutinin Antigen Identification Direct Antiglob Test (Negative) MTS Gel Crossmatch Crossmatch Prewarmed Bld Prod Order Comment Imaging Data Radiologist's impression: Orbit MRI 11/19/18 17:54 CONCLUSION: Mild ethmoid sinusitis. Otherwise normal orbit MRI with and without contrast. Lumbar Puncture Fluoroscopy 11/20/18 00:00 CONCLUSION: 1. Uncomplicated fluoroscopically guided lumbar puncture. 2. Abnormally elevated opening pressures of 44 cm of water. Closing pressures of 9 cm of water after removing 31 cc of CSF. Findings are characteristic of pseudotumor cerebri. Discharge Plan Discharge Disposition Patient Disposition: ED Admit(ED Internal Use Only) Discharge Order Discharge Orders: ED Use Only Admit Order (Routine); Ordered 11/19/18 Ordered By: Mari Donahue Discharge Details Diagnosis: Papilledema, Symptomatic anemia, Leukocytosis Physicians Team ED Provider: Mari Donahue Primary Care Provider: Primary Care Physici,No Attending Provider: Jacey Bobby Other Providers: Viktor Wood ; Hernán Huggins ; Kieran Ricks Discharge Interventions Interventions: ED Discharge Assessment Last Done: 11/20/18 01:52 Status ED Status: Left Department Discharge Information Discharge Date/Time: 11/20/18 05:15
--- NOTE | 2018-11-19 20:54 | MR ---
EXAM DATE: 11/19/2018 8:47 PM EST AGE/SEX: 28 years / Female INDICATIONS: Bilateral posterior eye pain. CLINICAL DATA: This is the patient's initial encounter. Patient reports that signs and symptoms have been present for 1 week and indicates a pain score of 4/10. MEDICAL/SURGICAL HISTORY: None. Tonsillectomy. COMPARISON: No prior exams available for comparison. TECHNIQUE: Multiplanar, multisequence MRI examination was performed without contrast and after intra venous administration of 7 ml Gadavist (gadobutrol) contrast and without contrast as single exam dose . FINDINGS: Preseptal: The preseptal soft tissues are normal thickness. Globes: Normal shape without wall thickening. The lens is grossly intact. Extraocular Muscles: Symmetric and normal thickness. Orbital Vidal: Intact. The greater wing of the sphenoid is intact. Optic Nerves: Normal size without abnormal areas of enhancement. The optic canal is not enlarged. The retroconal fat is normal in appearance. Lacrimal Glands: No evidence of mass. Retroapical Region: The optic chiasm is grossly intact. The visualized portion of the cavernous sin us and brainstem is intact. Post Contrast: No abnormal areas of enhancement seen. There is mild mucoperiosteal thickening of the ethmoid air cells. CONCLUSION: Mild ethmoid sinusitis. Otherwise normal orbit MRI with and without contrast. Electronically signed by: Gregory Carlisle MD Board Certified Radiologist 11/19/2018 8:52 PM EST
[2018-11-19 22:29] LABS: Lactate Dehydrogenase 686 U/L (84-246)
[2018-11-20] MEDS ORDERED: Acetaminophen 325 MG Tablet PO PRN (00:04)
[2018-11-20] MEDS ORDERED: Bisacodyl 10 MG Supp RECTAL PRN (00:04)
--- NOTE | 2018-11-20 00:21 | P.HPIM ---
History of Present Illness Primary Care Physician: No Primary Care Physician 28-year-old female with no significant past medical history presents to the emergency department at the recommendation of her desktop manager. The patient reports that approximately 3 weeks ago she started having ear pressure. She then developed subsequent neck tension 1 week ago. At that time she began having daily headaches and visual changes which she describes as light spots in her visual solis. By Sunday she noted that she had shadowy vision and was often unable to make out images clearly. She was seen in urgent care who diagnosed her with congestion and suggested Sudafed. On the patient reports generalized weakness and increased temporal headaches and was again seen and prescribed antibiotics and steroids. She continued to have visual problems and saw her eye doctor yesterday who documented bilateral papilledema and sent the patient to the hospital for further workup. On arrival to the emergency department, the patient was found to be anemic with a hemoglobin of 6.5. She reports that she is currently experiencing menses however she states that she has a very light flow and her cycles only last approximately 4 days. She denies any abnormal bleeding. No dark, tarry stools. No hematemesis. Inpatient Certification Inpatient Certification: I certify that the inpatient services were ordered in accordance with Medicare regulations governing the order. This includes certification that hospital inpatient services are reasonable and necessary and in the case of services not specified as inpatient-only under 42 CFR 419.22(n), that they are appropriately provided as inpatient services in accordance to with the 2-midnight benchmark under 43 CFR 412.3(e) Estimated Total Length of Stay (Days): 3 Plans for Post Hospital Care: Not yet determined Review of Systems Denies fever or chills Denies sore throat and cough No chest pain, palpitations No shortness of breath or wheezing No abdominal pain Denies constipation/diarrhea/nausea/vomiting Denies muscle pain Denies focal weakness No rashes PMFSH Medical History Medical History Patient denies medical problems (Acute) Surgical History Surgical History History of tonsillectomy (Acute) Family History Family History Other Breast cancer Coronary artery disease Social History Social History Substance History: No History of Abuse Second Hand Smoke Exposure: No Smoking Status: Never smoker How Often Do You Have a Drink Containing Alcohol: 4 or more times a week Recent Travel in [facility] within the Last 8 Weeks: No Recent Out of Country Travel within the Last 8 Weeks: No Immunization History Tetanus Immunization: <5 Years Medications and Allergies Allergies Allergy/AdvReac Type Severity Reaction Status Date / Time No Known Allergies Allergy Verified 11/19/18 17:44 Home Medications Medication Instructions Recorded Confirmed Type amoxicillin 875 mg PO BID 11/19/18 11/19/18 History methocarbamol 750 mg PO BID 11/19/18 11/19/18 History methylprednisolone 4 mg PO PER PKG DIR 11/19/18 11/19/18 History Active Medications: Active Medications Acetaminophen (Tylenol) 650 mg PO Q4H PRN PRN Reason: Temp > 100.4 Al Hydroxide/Mg Hydroxide (Milk Of Magnesia Liq) 30 ml PO Q12H PRN PRN Reason: Mild Constipation Bisacodyl (Dulcolax Supp) 10 mg RECTAL DAILY PRN PRN Reason: SEVERE CONSITIPATION Sodium Chloride (Ns Inj) 250 mls @ 15 mls/hr IV.SIG ONCE DANILO Stop: 11/20/18 11:39 Sodium Chloride (Ns Inj) 1,000 mls @ 70 mls/hr IV.CONT .[id number] DANILO Lactulose (Lactulose Liq) 30 ml PO DAILY PRN PRN Reason: SEVERE CONSITIPATION Ondansetron HCl (Zofran Inj) 4 mg IV.PUSH Q6H PRN PRN Reason: NAUSEA OR VOMITING Senna/Docusate Sodium (Bridgett-Colace) 1 tab PO BID DANILO Sennosides (Senokot) 17.2 mg PO Q12H PRN PRN Reason: Moderate Constipation Sodium Chloride (Ns Flush) 2 ml IV.FLUSH PRN PRN PRN Reason: FLUSH AFTER USING IV ACCESS Last Admin: 11/19/18 18:18 Dose: 2 ml Sodium Chloride (Ns Flush) 2 ml IV.FLUSH BID DANILO Sodium Chloride (Ns Flush) 2 ml IV.FLUSH PRN PRN PRN Reason: FLUSH AFTER USING IV ACCESS Physical Exam Vital signs: Vital Signs 11/19/18 15:30 02/12/19 18:59 11/19/18 19:31 Temperature 97.7 F 97.9 F Pulse Rate 112 H 96 H 99 H Respiratory Rate 16 17 15 Blood Pressure 139/60 131/61 137/65 Pulse Oximetry 99 100 97 11/19/18 22:46 11/19/18 23:20 Temperature Pulse Rate 93 H 91 H Respiratory Rate 14 17 Blood Pressure 132/67 126/58 L Pulse Oximetry 98 97 Intake & Output 11/19/18 11/19/18 11/20/18 06:59 18:59 06:59 Intake Total 1050 / 1050 Balance 1050 / 1050 Weight 73.028 kg Intake: IV 1050 / 1050 Zosyn 3.375 GM Premix 3.375 gm 50 / 50 In 50 ml @ 100 mls/hr IV.SIG ONCE ONE Rx#:[id number] NS Inj 1,000 ML @ Wide Open IV. 1000 / 1000 SIG BOLUS ONE Rx#:[id number] Narrative: Gen.: No acute distress. Pale appearing female lying in bed. Head: Normocephalic. Atraumatic. EENT: Pupils equal round and reactive to light. Nose without drainage. Airway intact. Throat without injection. Cardiovascular: Regular rate and rhythm. No murmurs, rubs or gallops. Respiratory: Lungs clear to auscultation bilaterally. No wheezes or rhonchi. Abdomen: Soft, nontender, nondistended. No peritoneal signs. Musculoskeletal: No gross deformities. No edema. Skin: No obvious rashes or erythema. Neuro: Sensory and motor grossly intact. Cranial nerves II through XII grossly intact. Results Labs CBC & Chem 7: 11/19/18 18:00 11/19/18 18:00 Imaging Impressions Orbit MRI 11/19/18 17:54 CONCLUSION: Mild ethmoid sinusitis. Otherwise normal orbit MRI with and without contrast. Caprini VTE Risk Assessment Caprini VTE Risk Assessment: No/Low Risk (score <= 1) Caprini Risk Assessment Model: Point Value = 1 Point Value = 2 Point Value = 3 Point Value = 5 Age 41-60 Minor surgery BMI > 25 kg/m2 Swollen legs Varicose veins or History of unexplained or recurrent spontaneous Oral contraceptives or hormone replacement Sepsis (< 1 month) Serious lung disease, including pneumonia (< 1 month) Abnormal pulmonary function Acute myocardial infarction Congestive heart failure (< 1 month) History of inflammatory bowel disease Medical patient at bed rest Age 61-74 Arthroscopic surgery Major open surgery (> 45 min) Laparoscopic surgery (> 45 min) Malignancy Confined to bed (> 72 hours) Immobilizing plaster cast Central venous access Age >= 75 History of VTE Family history of VTE Factor V Leiden Prothrombin [id number] Lupus anticoagulant Anticardiolipin antibodies Elevated serum homocysteine Heparin-induced thrombocytopenia Other congenital or acquired thrombophilia Stroke (< 1 month) Elective arthroplasty Hip, pelvis, or leg fracture Acute spinal cord injury (< 1 month) Prophylaxis Regimen: Total Risk Factor Score Risk Level Prophylaxis Regimen 0-1 Low Early ambulation 2 Moderate Order ONE of the following: *Sequential Compression Device (SCD) *Heparin 5000 units SQ BID 3-4 Higher Order ONE of the following medications: *Heparin 5000 units SQ TID *Enoxaparin/Lovenox 40 mg SQ daily (WT < 150 kg, CrCl > 30 mL/min) *Enoxaparin/Lovenox 30 mg SQ daily (WT < 150 kg, CrCl > 10-29 mL/min) *Enoxaparin/Lovenox 30 mg SQ BID (WT < 150 kg, CrCl > 30 mL/min) AND/OR *Sequential Compression Device (SCD) 5 or more Highest Order ONE of the following medications: *Heparin 5000 units SQ TID (Preferred with Epidurals) *Enoxaparin/Lovenox 40 mg SQ daily (WT < 150 kg, CrCl > 30 mL/min) *Enoxaparin/Lovenox 30 mg SQ daily (WT < 150 kg, CrCl > 10-29 mL/min) *Enoxaparin/Lovenox 30 mg SQ BID (WT < 150 kg, CrCl > 30 mL/min) AND *Sequential Compression Device (SCD) Assessment and Plan Plan Assessment/plan: 1. Headache/papilledema MRI of the orbit showed mild ethmoid sinusitis Per discussion with radiologist, remainder of the brain negative Concern for pseudotumor cerebri Interventional radiology consulted for LP Neurology consulted, appreciate assistance 2. Macrocytic anemia Hemoglobin 6.5 Unclear etiology Concern for hemolytic anemia with elevated total bilirubin, elevated haptoglobin Ayan pending Peripheral smear pending Transfuse 2 units packed red blood cells Hematology consulted, appreciate assistance FEN N.p.o. NS at 70 cc/hour Electrolytes: Monitor and replete as needed
[2018-11-20 01:08] LABS: % Iron Saturation 26.1 % (20-50)
[2018-11-20] MEDS: Sod Chloride 0.9% Inj 1,000 ML IV.CONT SCH ×2 (01:41→16:40)
[2018-11-20] MEDS: Senna/Docusate Sodium 8.6/50 MG Tablet PO SCH ×2 (09:42→23:01)
[2018-11-20] MEDS ORDERED: Vancomycin Consult Pharmacy OTHER PRN (10:37)
[2018-11-20] MEDS ORDERED: VANCOMYCIN IV.SIG ONE (10:37)
[2018-11-20] MEDS ORDERED: SODIUM CHLOR 0.9% IV.SIG ONE (10:37)
--- NOTE | 2018-11-20 11:18 | P.RAD ---
Post Procedure Progress Note - Pre Procedure Diagnosis (1) Headache (2) Papilledema - Post Procedure Diagnosis (1) Pseudotumor cerebri (2) Papilledema (3) Headache - Procedure Information Procedure Date: 11/20/18 Supervising Radiologist: Joseluis Fay MD Estimated blood loss (mL): 0 Anesthesia: Local - Plan of Activity Patient to Unit: Nursing Unit Patient Condition: Good See PACS Report for procedural detail/treatment. Spinal Procedure Lumbar Puncture L4 Fluid Removal (CCs): 31 Fluid Description: Clear Puncture Time: 11:00 Findings: OP: 44 cmH2O CP: 9 cm H2O
--- NOTE | 2018-11-20 11:40 | IR ---
EXAM DATE: 11/20/2018 11:31 AM EST AGE/SEX: 28 years / Female INDICATIONS: Patient with bilateral papilledema and headaches in need of lumbar puncture. CLINICAL DATA: This is the patient's initial encounter. Patient reports that signs and symptoms have been present for 3 weeks and indicates a pain score of 0/10. MEDICAL/SURGICAL HISTORY: None. Tonsillectomy. COMPARISON: No prior exams available for comparison. FLUORO TIME (min): 0.6 IMAGE SERIES: 2 RADIATION DOSE: 39mGy CAK ACCESS SITE: L3-4 LUMBAR PUNCTURE TIME: 1101 hours OPENING PRESSURE: 44 cm of water CLOSING PRESSURE: 9 cm of water FLUID: Total volume of 31 cc of clear fluid was removed. Fluid was sent to lab for ordered studies. ; . . PROCEDURE: 1. Fluoroscopic guided lumbar puncture. The risks, benefits and alternatives to the procedure were explained and verbal and written consent w as obtained. The site was prepped in sterile fashion. Full sterile technique was used, including ca p, mask, sterile gloves and gown and a large sterile sheet. Hand hygiene and 2% chlorhexidine and/or betadine/alcohol prep was utilized per protocol for cutaneous antisepsis. The skin and subcutaneous tissues were infiltrated with local anesthetic solution. With fluoroscopic guidance the lumbar thecal sac was punctured at the level above. The fluid describ ed above was removed without difficulty. The patient tolerated the procedure well and there were no complications. CONCLUSION: 1. Uncomplicated fluoroscopically guided lumbar puncture. 2. Abnormally elevated opening pressures of 44 cm of water. Closing pressures of 9 cm of water after removing 31 cc of CSF. Findings are characteristic of pseudotumor cerebri. Electronically signed by: Joseluis Fay MD Board Certified Radiologist 11/20/2018 11:39 AM EST
[2018-11-20 12:43] LABS: Lymphocytes, CSF 79 %; Monocytes,CSF 7 %; Neutrophils,CSF 14 %
[2018-11-20 12:47] LABS: RBC on Tube 4 2 /mm3
--- NOTE | 2018-11-20 13:39 | MB ---
cc: Kieran Ricks MD, Shahabuddin DO DATE: 11/20/2018 REQUESTING PHYSICIAN: Dr. Bobby. REASON FOR CONSULTATION A 28-year-old with papilledema, leukocytosis, neck stiffness. HISTORY OF PRESENT ILLNESS: This is a 28-year-old white female, who has been experiencing symptoms consisting of ear pain, ringing in the ears, light flashes within the visual field, tiredness, weakness, neck soreness, and headache. The patient states that she has been feeling sick for about 3 weeks and over the last week, she started experiencing visual difficulties. She reportedly was having pain starting in the back of the neck, radiating into both temporal areas of the head, and also shooting to the frontal aspect. The patient was seen by an web operations manager, and was noted to have edema of the optic nerve, and she was sent to the hospital to be further evaluated. The patient works as a digital photographer. She has not been able to function well at work, and has had trouble using the computer as well. Things were "off," whenever she would try to do her work activities. The patient and her recently went on a cruise to the [facility] in the beginning of October, and she reported that after the cruise, the patient was feeling somewhat unsteady and it took her about a week to feel steady on her feet again. She reports that the last day of the cruise, the cruise ship was shaky. The patient also notes that she was getting short-winded, when she would walk. She states that she avoided driving, because of the problems with her vision. Her mentions that she would ask him about whether she was putting her makeup on right, because she was not confident with her judgment in doing so. Her also mentioned that she would look at him standing a short distance from her, and could not see clear features, but just a shadow. She denies nausea or vomiting. On admission, she had a hemoglobin of 6.5 and white blood cell count of 22.2. She has been afebrile. She denies chills. She denies tingling of the hands or numbness. She describes her hand feeling heavy whenever she would do typing on the computer, and it felt like it started from her shoulder blades. She has had no sore throat, coughing, sneezing. She owns 2 cats and has been involved in cleaning silvestre litter box. Lumbar puncture was performed earlier today. the CSF revealed glucose of 57, total protein of 35. White count and differential are not yet available. PAST MEDICAL HISTORY: Tonsillectomy. ALLERGIES: NO KNOWN DRUG ALLERGIES. MEDICATIONS: 1. Ceftriaxone. 2. Vancomycin. 3. Tylenol p.r.n. 4. The patient received one dose of piperacillin/tazobactam yesterday evening. SOCIAL HISTORY: The patient is . The patient never smoked. She drinks alcohol approximately 4 times per week. No illicit drugs. FAMILY HISTORY: Noncontributory. REVIEW OF SYSTEMS: All systems have been reviewed with pertinent features mentioned in history of present illness. PHYSICAL EXAMINATION: GENERAL: Well-developed female, who is in no acute distress. She is awake, alert, and oriented. VITAL SIGNS: Temperature 97.6, BP 126/58, respirations 18, heart rate 80. HEENT: Head is atraumatic. Extraocular movements are grossly intact. Pupils reactive to light. No icterus. No conjunctival erythema. Nose: Nasal septum midline. Oropharynx mucosa moist. No thrush. No visible lesions. Dentition is fair. NECK: Supple without adenopathy. LUNGS: Clear breath sounds bilaterally. HEART: Distant S1 and S2 without audible murmurs. ABDOMEN: Bowel sounds present. Soft. No tenderness appreciated. No masses palpable. RECTAL: Not performed. EXTREMITIES: No clubbing, cyanosis or edema. No splinter hemorrhages. No calf tenderness. SKIN: No rashes. NEUROLOGIC: No gross focal findings. PSYCHIATRIC: The patient is calm and cooperative. LABORATORY DATA: WBC 22.2, platelets 424, hemoglobin 6.5, 78% neutrophils, 13% lymphocytes, 7% monocytes. Creatinine 0.73. Estimated GFR greater than 89. Sodium 138. Total bilirubin 3.5, AST 38, ALT 20. IMAGING: MRI of the orbit showed mild ethmoid sinusitis. Lumbar puncture was performed and the opening pressure was elevated. The opening pressure was 44. IMPRESSION: 1. The patient admitted with papilledema, headache, and visual changes. No fever. However, elevated white blood cell count and also anemia. Features suggest pseudotumor cerebri. Probably unrelated to infection. 2. Leukocytosis, probably reactive in patient, who presents with significant anemia. RECOMMENDATIONS: Continue the antibiotics while following the lumbar puncture results, including Gram stain and white count and differential, which is not yet available. Continue to follow the white blood cell count and monitor blood cultures as well. Agree with neurosurgical and neurology input as well. Thank you for this consultation. I will monitor the patient's progress along with you, and will make further recommendations upon followup, if necessary. MD ANIYA Faith/rh , 12:39 PM , 12:58 PM MORIAH
--- NOTE | 2018-11-20 13:44 | MB ---
cc: Viktor Wood MD DATE: 11/20/2018 ATTENDING PHYSICIAN: Yen Nelson MD REASON FOR CONSULTATION: Hematology consult in a patient with severe anemia and possible hemolysis. HISTORY OF PRESENT ILLNESS: The patient is a 28-year-old female who presented to the emergency room complaining of worsening headache and neck tension. She was seen by the circus performer and found to have bilateral papilledema yesterday. The patient states that she has not been feeling well for the last 3 weeks. She started having pressure in the ear about a week ago. She started having bilateral temporal headache. She also has neck tension and stiffness. She started having visual changes seeing light spots and later became shadowy picture. She also has increased weakness. She went to see an circus performer yesterday and found to have bilateral papilledema. She was sent to the emergency room. She was started on Medrol Dosepak about 4 days ago, but she did not feel any different. On presentation, found her hemoglobin to be 6.5, white blood cell count 22,000. She denies any fever or chills. She has lost a few pounds over the last few days. She has decreased oral intake. She denies any chest pain or palpitation. She has dyspnea on exertion. Denies any cough. She has no nausea or vomiting. Denies any abdominal pain. She has menstrual period, but it is very light. She states her urine color has been dark for at least 2 weeks. PAST MEDICAL HISTORY: None. She has not seen a doctor since high school. PAST SURGICAL HISTORY: Tonsillectomy. FAMILY HISTORY: Mother had breast cancer. Father had coronary artery disease. She has no siblings and has no children. SOCIAL HISTORY: Denied tobacco use. She drinks 3-4 hard liquors about every other day. She works as a dietary server in a restaurant, but has not been mobile for at least 2 weeks. ALLERGIES: NO KNOWN DRUG ALLERGIES. CURRENT MEDICATIONS: 1. Ceftriaxone. 2. Decadron. 3. Bridgett-Colace. 4. Vancomycin. REVIEW OF SYSTEMS: CONSTITUTIONAL: As above. EYES: As above. ENT: As above. CARDIOVASCULAR: As above. RESPIRATORY: Negative. GASTROINTESTINAL: Negative. GENITOURINARY: As above. MUSCULOSKELETAL: As above. HEMATOLOGY: As above. ENDOCRINE: Negative. DERMATOLOGIC: Negative. PSYCHIATRIC: Negative. NEUROLOGIC: As above. PHYSICAL EXAMINATION: VITAL SIGNS: Temperature 98, blood pressure 131/65, O2 saturation 97% on room air. GENERAL: She is alert and oriented x 3. She is lying in bed in no acute distress. She looked pale. HEENT: Atraumatic, normocephalic. Pupils are equal, round, reactive to light. Positive scleral icterus. Oropharynx dry mucosa. NECK: No thyromegaly. It is stiff. LYMPHATICS: I cannot palpate axillary or clavicular lymph nodes. CARDIOVASCULAR: Regular. S1, S2 normal. LUNGS: Clear to auscultation anteriorly. ABDOMEN: Soft, nontender. Cannot palpate liver or spleen. EXTREMITIES: No cyanosis, clubbing, or edema. SKIN: No rash or petechiae. She is a little pale. NEUROLOGIC: Nonfocal. LABORATORY DATA: I reviewed her blood work drawn during this hospital stay. ASSESSMENT: 1. Anemia of unknown chronicity. She presented with a hemoglobin of 6.5. MCV is 106 with RDW of 27.9 and also noted to have elevated LDH and low haptoglobin. Total bilirubin also elevated at 3.5. This is most consistent with hemolytic anemia. Her Ayan test is positive and the red blood cell antibody is also positive. Further identification is pending at this time. She also had leukocytosis, but she has been taking steroids for several days. She also has symptoms of papilledema and headache. She may have an increased intracranial pressure. It is unclear if she has underlying infection that triggered the hemolysis. Peripheral blood did show toxic granulation and spherocytes. We will have Pathology review her peripheral smear. I am going to check her vitamin study and iron study. We will also send peripheral blood flow cytometry. She may need a bone marrow biopsy depending on the above evaluation. I am not sure if the hemolysis is related to her neurologic symptoms. Recommend further evaluation to see if she has any cerebral venous thrombosis as we may have to look for a rare disorder like PNH. However, hemolysis caused by PNH usually Ayan negative. 2. Headache with neck stiffness and papilledema. Orbital MRI showed mild ethmoid sinusitis, but no other pathology. She may need a brain MRI with venogram to look for thrombosis. She is awaiting a lumbar puncture and neurology evaluation. RECOMMENDATIONS: 1. Await identification of red blood cell antibody. 2. The patient is restarted on steroids. 3. Monitor CBC. 4. Send for peripheral blood smear. 5. Check vitamin studies and iron study. 6. Send for flow cytometry. 7. Await neurology evaluation. 8. Consider MRI with venogram to look for thrombosis. Thank you Dr. Nelson for asking me to see this patient. MD CHANCE Ridley/alyce/jaci , 12:29 PM , 12:47 PM [email or web address]
--- NOTE | 2018-11-20 14:56 | CT ---
EXAM DATE: 11/20/2018 2:52 PM EST AGE/SEX: 28 years / Female INDICATIONS: Weakness. CLINICAL DATA: This is the patient's initial encounter. Patient reports that signs and symptoms have been present for 1 day and indicates a pain score of 0/10. MEDICAL/SURGICAL HISTORY: None. None. RADIATION DOSE: 56.35 CTDI (mGy) COMPARISON: No prior exams available for comparison. TECHNIQUE: CT of the head without contrast. Using automated exposure control and adjustment of the mA and/or kV according to patient size, radiation dose was kept as low as reasonably achievable to ob tain optimal diagnostic quality images. DICOM format image data is available electronically for revi ew and comparison. FINDINGS: Cerebrum: The ventricles are normal for age. No evidence of midline shift, mass lesion, hemorrhage o r acute infarction. No extraaxial fluid collections are seen. Posterior Fossa: The cerebellum and brainstem are intact. The 4th ventricle is midline. The cerebe llopontine angle is unremarkable. Extracranial: The visualized portion of the orbits is intact. Skull: The calvaria is intact. No evidence of skull fracture. CONCLUSION: 1. No acute intracranial abnormality. . Electronically signed by: Jan Vail MD Board Certified Radiologist 11/20/2018 2:54 PM EST
[2018-11-20] MEDS: Vancomycin Inj 1,250 MG in Sodium Chlor 0.9% Inj 250 ML IV.SIG SCH (16:28)
[2018-11-20 18:03] LABS: Vitamin B12 476 pg/mL (193-986)
--- NOTE | 2018-11-20 18:21 | MB ---
cc: Hernán Huggins MD, PhD DATE: 11/20/2018 REASON FOR CONSULTATION: Headache with visual symptoms. HISTORY OF PRESENT ILLNESS: Ms. Long is a 28-year-old female, previously healthy, who was referred to the ER by her patient monitor who noted papilledema. She began having an ear pressure sensation as well as neck pain and headache 3 weeks ago and started beginning to experience visual change with blurred vision in both eyes, seeing white spots in her visual solis as well as shadows in her visual field. She saw her patient monitor who found her to have bilateral papilledema. She was also found to be anemic with hemoglobin of 6.5. PAST MEDICAL HISTORY: Otherwise unremarkable. MEDICATIONS: She was on a steroid taper for her headache recently. PHYSICAL EXAMINATION: VITAL SIGNS: Blood pressure is 114/61, pulse is 95, respiratory rate is 20, temperature 98 degrees. NEUROLOGIC: Higher cortical functions normal. Cranial nerves: The pupils are equal, reactive. She does have papilledema bilaterally. Visual solis are intact to confrontation. Extraocular movements are full. There is no facial asymmetry. Other cranial nerves are within normal limits. NECK: Supple. Motor exam is 5/5 strength in all major muscle groups of both upper and lower extremities. There is no drift. Fine motor skills within normal limits. Reflexes are 1+ biceps, triceps, brachioradialis, symmetric; 1+ patella, symmetric; 1+ ankle, symmetric. There is no Babinski sign present. DIAGNOSTIC DATA: MRI of orbits is unremarkable. Head CT scan is within normal limits. The patient underwent lumbar puncture, and the opening pressure was 44 cm of water. After removing 31 mL of CSF, closing pressure was 9 cm of water. LABORATORY DATA: White count 22,200, hemoglobin is 6.5, hematocrit 19.5%, MCV 106.3, MCH 35.2, RDW 27.9, platelet count 424,000. Sedimentation rate is 82, haptoglobin less than 10. PT 10.4, INR 1, aPTT of 32.7. Sodium is 138, potassium 3.7, chloride 104, CO2 of 27.7. The BUN is 16, creatinine 0.73. GFR is greater than 89, glucose 117, AST 38, ALT is 20, iron 106, TIBC 46% saturation, iron 26%. LDH is 686. B12 level is pending. UA the pH is 6, specific gravity 1.017. Occult blood is moderate. There are 27 rbc's, 7 wbc's present. IMPRESSION: The patient's headache with papilledema and elevated cerebrospinal fluid opening pressure on lumbar puncture are consistent with benign intracranial hypertension (pseudotumor cerebri). Would recommend further evaluation with a brain MR venogram to rule out venous sinus thrombosis. We will recommend starting the patient on Diamox as well. Hernán Huggins MD, PhD BECKY/rm , 05:44 PM , 05:54 PM
--- NOTE | 2018-11-20 20:22 | ECG ---
Date Performed: 11/19/2018 Time Performed: 22:24:38 PTAGE: 28 years EKG: Sinus rhythm NONSPECIFIC T-WAVE ABNORMALITY BORDERLINE ECG NO PREVIOUS TRACING DOCTOR: Patrice Huber Interpretating Date/Time 11/20/2018 20:20:04
--- NOTE | 2018-11-20 20:52 | P.PNIM ---
Subjective Interval history: Follow up for vision changes, neck stiffness, bilateral papilledema. Patient is resting in bed, complains of blurred vision, neck stiffness. No fever, chills. I saw her before and after LP. After LP, patient fell in the bathroom and likely hit her head. She complained of being too drowsy. We obtained a stat CT scan. Neurology, ID, hematology evaluated patient. Patient reports no history of heavy menstrual bleed. No dark stool. Physical Exam Vital signs: Vital Signs 11/19/18 22:46 11/19/18 23:20 11/20/18 00:54 Temperature Pulse Rate 93 H 91 H 94 H Respiratory Rate 14 17 17 Blood Pressure 132/67 126/58 L 125/59 L Pulse Oximetry 98 97 97 11/20/18 01:42 11/20/18 05:52 11/20/18 08:15 Temperature 98.1 F 97.8 F 98 F Pulse Rate 91 H 87 94 H Respiratory Rate 20 20 20 Blood Pressure 126/64 131/62 131/65 Pulse Oximetry 96 100 97 11/20/18 12:16 11/20/18 13:25 11/20/18 13:45 Temperature 97.5 F L 97.9 F Pulse Rate 89 85 93 H Respiratory Rate 20 17 18 Blood Pressure 118/71 118/59 L 119/59 L Pulse Oximetry 99 99 99 11/20/18 15:20 11/20/18 16:44 11/20/18 16:55 Temperature 98.2 F 98.1 F 98.1 F Pulse Rate 94 H 99 H 97 H Respiratory Rate 20 20 18 Blood Pressure 128/62 118/60 118/60 Pulse Oximetry 100 97 11/20/18 16:58 11/20/18 17:15 11/20/18 19:30 Temperature 98 F 97.9 F 98.1 F Pulse Rate 95 H 96 H 95 H Respiratory Rate 20 19 19 Blood Pressure 114/61 126/60 118/72 Pulse Oximetry 97 11/20/18 20:30 Temperature 98.4 F Pulse Rate 91 H Respiratory Rate 20 Blood Pressure 118/74 Pulse Oximetry 98 Intake & Output 11/20/18 11/20/18 11/21/18 06:59 18:59 06:59 Intake Total 1050 / 1050 1362.5 / 1362.5 Balance 1050 / 1050 1362.5 / 1362.5 Weight 73.028 kg Intake: IV 1050 / 1050 1362.5 / 1362.5 NS Inj 1,000 ML @ 70 mls/hr IV. 1000 / 1000 CONT .[id number] [facility] Rx#:[id number] Zosyn 3.375 GM Premix 3.375 gm 50 / 50 In 50 ml @ 100 mls/hr IV.SIG ONCE ONE Rx#:[id number] NS Inj 1,000 ML @ Wide Open IV. 1000 / 1000 SIG BOLUS ONE Rx#:[id number] Vancomycin Inj 1,250 MG In NS 262.5 / 262.5 Inj 250 ML @ 262.5 mls/hr IV. SIG Q12H [facility] Rx#:[id number] Rocephin Inj 2,000 MG In NS Inj 100 / 100 100 ML @ 200 mls/hr IV.SIG Q12H [facility] Rx#:[id number] Intake (Blood Product) Amt 0 / 0 Rbc As-3 Leukoreduced Unit 0 / 0 [id number] Other: # Voids 2 3 Date of Last Bowel Movement 11/19/18 11/19/18 Weight On Admission 73.457 kg Narrative: Gen.: No acute distress. Pale appearing female lying in bed. Head: Normocephalic. Atraumatic. EENT: Pupils equal round and reactive to light. Nose without drainage. Airway intact. Throat without injection. Neck pain on neck flexion. Cardiovascular: Regular rate and rhythm. No murmurs, rubs or gallops. Respiratory: Lungs clear to auscultation bilaterally. No wheezes or rhonchi. Abdomen: Soft, nontender, nondistended. No peritoneal signs. Musculoskeletal: No gross deformities. No edema. Skin: No obvious rashes or erythema. Neuro: Sensory and motor grossly intact. Cranial nerves II through XII grossly intact. Normal speech. Results Labs CBC & Chem 7: 11/19/18 18:00 11/19/18 18:00 Labs: Microbiology 11/20/18 11:01 Lumbar Puncture Gram Stain - Final 11/19/18 18:30 Blood - Peripheral Aerobic Blood Culture - Preliminary No growth in 1 day 11/19/18 18:30 Blood - Peripheral Anaerobic Blood Culture - Preliminary No growth in 1 day 11/19/18 18:14 Blood - Peripheral Aerobic Blood Culture - Preliminary No growth in 1 day 11/19/18 18:14 Blood - Peripheral Anaerobic Blood Culture - Preliminary No growth in 1 day Imaging Imaging: Impressions Orbit MRI 11/19/18 17:54 CONCLUSION: Mild ethmoid sinusitis. Otherwise normal orbit MRI with and without contrast. Lumbar Puncture Fluoroscopy 11/20/18 00:00 CONCLUSION: 1. Uncomplicated fluoroscopically guided lumbar puncture. 2. Abnormally elevated opening pressures of 44 cm of water. Closing pressures of 9 cm of water after removing 31 cc of CSF. Findings are characteristic of pseudotumor cerebri. Head CT 11/20/18 13:56 CONCLUSION: 1. No acute intracranial abnormality. . Assessment and Plan Plan Ms. 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 Patient has been complaining of headache, blurred vision as well as neck stiffness for more than a week prior to this hospitalization. Probable pseudomotor cerebri Possible bacterial meningitis -Patient's symptoms are consistent with pseudomotor cerebri. She had subside of her symptoms after LP. -Neurology started patient on Acetazolamide -We will empirically cover with Ceftriaxone 2g Q12 and Vancomycin as well as Dexamethasone for possible meningitis. -Meningitis is unlikely, however. Patient does not have any fever and her symptoms started more than 7 days ago -Will d/c abx once we have some CSF results back. Anemia with unclear etiology -Paroxysmal nocturnal hemoglobinuria is a possibility. Will wait for further recs by Hematology. Flow cytometry to look for CD55 can be done. -Neurology also requested MRV of the brain. -s/p blood transfusion. Full code. Ambulation. Progress Note: Quality VTE Deep Vein Thrombosis/Pulmonary Embolism Present on Admission: No
[2018-11-20] MEDS ORDERED: Gadobutrol PF 10 MMOL/10 ML Vial (for RAD) IV.SIG ONE (21:29)
[2018-11-20] MEDS: acetaZOLAMIDE 250 MG TABLET PO SCH (21:31)
--- NOTE | 2018-11-20 21:35 | MR ---
EXAM DATE: 11/20/2018 9:28 PM EST AGE/SEX: 28 years / Female INDICATIONS: . Cerebral venous thrombosis CLINICAL DATA: This is the patient's subsequent encounter. Patient reports that signs and symptoms h ave been present for 2 days and indicates a pain score of 0/10. MEDICAL/SURGICAL HISTORY: None. Tonsillectomy. [place] [facility] [place].. . TECHNIQUE: MR cerebral venography is performed without and with 10 ml Gadavist (gadobutrol) contrast (single exam dose). Source images, 3D volume MIP, and sliding thin slab MIP reconstructions were re viewed. FINDINGS: There is excellent visualization of the major intracranial venous structures. These are normal in indio iber and course. No filling defects observed. CONCLUSION: 1. Negative MRV Brain with and without contrast. Electronically signed by: Wander Andre MD Board Certified Radiologist 11/20/2018 9:34 PM EST
[2018-11-21] MEDS: Vancomycin Inj 1,250 MG in Sodium Chlor 0.9% Inj 250 ML IV.SIG SCH ×2 (02:21→12:59)
[2018-11-21] MEDS: acetaZOLAMIDE 250 MG TABLET PO SCH ×3 (08:02→21:22)
[2018-11-21] MEDS: Senna/Docusate Sodium 8.6/50 MG Tablet PO SCH ×2 (08:02→21:24)
[2018-11-21] MEDS: Sod Chloride 0.9% Inj 1,000 ML IV.CONT SCH (11:02)
[2018-11-21 11:25] LABS: Baso % (Auto) 0.2 % (0.0-2.0); Hematocrit 30.9 % (35.0-46.0); Hemoglobin 10.1 gm/dL (11.6-15.3); Lymph # (Auto) 1.5 th/mm3 (1.0-4.8); Lymph % (Auto) 5.9 % (9.0-44.0); Mean Corpuscular HGB Conc 32.6 % (32.0-36.0); Mean Corpuscular Hemoglobin 32.2 pg (27.0-34.0); Mean Corpuscular Volume 98.6 fL (80.0-100.0); Mean Platelet Volume 7.9 fL (7.0-11.0); Mono # (Auto) 0.6 th/mm3 (0.0-0.9); Mono % (Auto) 2.5 % (0.0-8.0); Neut # (Auto) 23.2 th/mm3 (1.8-7.7); Neut % (Auto) 91.4 % (16.0-70.0); Platelet Count 410 th/mm3 (150-450); Red Blood Count 3.13 mil/mm3 (4.00-5.30); Red Cell Distribution Width 23.2 % (11.6-17.2); White Blood Count 25.4 th/mm3 (4.0-11.0)
[2018-11-21 11:42] LABS: Carbon Dioxide 19.6 meq/L (21.0-32.0); Potassium 3.5 meq/L (3.5-5.1)
[2018-11-21 12:07] LABS: Lymphocytes 4 % (9-44); Metamyelocytes 1 % (0-1); Monocytes 3 % (0-8); Myelocytes 1 % (0-0); Tallied Nucleated RBC 5 (0-0)
[2018-11-21 12:08] LABS: Platelet Estimate Normal (Normal); Platelet Morphology Normal (Normal)
[2018-11-21 12:09] LABS: Polychromasia 6.9 % (0.0-1.9)
[2018-11-21 12:18] LABS: Spherocytes 1+
[2018-11-21 12:20] LABS: Dimorphic RBC Present
[2018-11-21 12:31] LABS: Hypersegmented Neutrophils 1+
--- NOTE | 2018-11-21 12:44 | P.PNIM ---
Subjective Interval history: Patient was seen and examined. She has no new acute complaints and mentions she felt much better after having the lumbar puncture done yesterday, although she did fall and hit her head shortly after the procedure. Neuro workup was negative. No current focal neurological deficits, dizziness, or headache. Neck stiffness, fatigue, and vision changes have improved significantly. Continues to have normal BMs with no melena or hematochezia. Denies any dizziness, chest pain, SOB, fever, or chills. Physical Exam Vital signs: Vital Signs 11/20/18 13:25 11/20/18 13:45 11/20/18 15:20 Temperature 97.9 F 98.2 F Pulse Rate 85 93 H 94 H Respiratory Rate 17 18 20 Blood Pressure 118/59 L 119/59 L 128/62 Pulse Oximetry 99 99 100 11/20/18 16:44 11/20/18 16:55 11/20/18 16:58 Temperature 98.1 F 98.1 F 98 F Pulse Rate 99 H 97 H 95 H Respiratory Rate 20 18 20 Blood Pressure 118/60 118/60 114/61 Pulse Oximetry 97 11/20/18 17:15 11/20/18 19:30 11/20/18 20:00 Temperature 97.9 F 98.1 F 98.3 F Pulse Rate 96 H 95 H 96 H Respiratory Rate 19 19 19 Blood Pressure 126/60 118/72 141/67 H Pulse Oximetry 97 96 11/20/18 20:30 11/20/18 23:45 11/21/18 00:00 Temperature 98.4 F 97.8 F 97.8 F Pulse Rate 91 H 80 80 Respiratory Rate 20 19 19 Blood Pressure 118/74 116/58 L 116/58 L Pulse Oximetry 98 97 11/21/18 00:15 11/21/18 00:28 11/21/18 00:29 Temperature 97.9 F 97.8 F 97.5 F L Pulse Rate 82 81 83 Respiratory Rate 19 19 20 Blood Pressure 111/61 109/59 L Pulse Oximetry 97 97 97 11/21/18 02:15 11/21/18 04:36 11/21/18 08:10 Temperature 97.5 F L 98.0 F 97.6 F Pulse Rate 73 73 81 Respiratory Rate 19 20 20 Blood Pressure 113/61 127/83 118/69 Pulse Oximetry 96 99 97 Intake & Output 11/20/18 11/21/18 11/21/18 18:59 06:59 18:59 Intake Total 1362.5 / 1362.5 2162.5 / 2162.5 100 / 100 Balance 1362.5 / 1362.5 2162.5 / 2162.5 100 / 100 Intake: IV 1362.5 / 1362.5 1362.5 / 1362.5 100 / 100 NS Inj 1,000 ML @ 70 mls/hr IV. 1000 / 1000 1000 / 1000 CONT .[id number] [facility] Rx#:[id number] Vancomycin Inj 1,250 MG In NS 262.5 / 262.5 262.5 / 262.5 Inj 250 ML @ 262.5 mls/hr IV. SIG Q12H [facility] Rx#:[id number] Rocephin Inj 2,000 MG In NS Inj 100 / 100 100 / 100 100 / 100 100 ML @ 200 mls/hr IV.SIG Q12H [facility] Rx#:[id number] Intake (Blood Product) Amt 0 / 0 800 / 800 Rbc As-3 Leukoreduced Unit 400 / 400 [id number] Rbc As-3 Leukoreduced Unit 0 / 0 400 / 400 [id number] Other: # Voids 3 3 Date of Last Bowel Movement 11/19/18 11/19/18 Narrative: Gen.: No acute distress. Pale appearing female lying in bed. Head: Normocephalic. Atraumatic. EENT: Pupils equal round and reactive to light. Nose without drainage. Airway intact. Throat without injection. Neck ROM and strength has improved. Cardiovascular: Regular rate and rhythm. No murmurs, rubs or gallops. Respiratory: Lungs clear to auscultation bilaterally. No wheezes or rhonchi. Abdomen: Soft, nontender, nondistended. No peritoneal signs. Musculoskeletal: No gross deformities. No edema. Skin: No obvious rashes or erythema. Neuro: Sensory and motor grossly intact. Cranial nerves II through XII grossly intact. Normal speech. Results - Labs CBC & Chem 7: 11/21/18 10:53 11/21/18 10:53 Laboratory Results - last 24 hr 11/19/18 11/19/18 11/20/18 18:44 20:22 11:01 WBC RBC Hgb Hct MCV MCH MCHC RDW Plt Count MPV Prelim Diff (Auto) Neut % (Auto) Lymph % (Auto) Osborne % (Auto) Eos % (Auto) Baso % (Auto) Neut # (Auto) Lymph # (Auto) Osborne # (Auto) Eos # (Auto) Baso # (Auto) WBC Differential Seg Neuts % (Manual) Band Neuts % (Manual) Lymphocytes % (Manual) Monocytes % (Manual) Metamyelocytes % (Man) Myelocytes % (Man) Abs Neuts (Manual) Nucleated RBCs/100 WBC Differential Comment Hypersegmented Neuts Platelet Estimate Platelet Morphology Dimorphic RBCs Polychromasia Spherocytes Sodium Potassium Chloride Carbon Dioxide Anion Gap BUN Creatinine Estimated GFR Random Glucose Calcium Vitamin B12 Folate TSH Beta HCG, Qual CSF Volume (1) 8.0 CSF Supernat Color (1) Clear CSF Gross Blood (1) Trace CSF Volume (2) 8.3 CSF Supernat Color (2) Clear CSF Gross Blood (2) 0 CSF Volume (3) 7.0 CSF Supernat Color (3) Clear CSF Gross Blood (3) 0 CSF Volume (4) 7.5 CSF Supernat Color (4) Clear CSF Gross Blood (4) 0 CSF WBC (4) 1 CSF RBC (4) 2 H CSF Neutrophils % 14 CSF Lymphocytes % 79 CSF Monocytes % 7 Antibody Identification Non-Specific Cold Agglutinin Antibody ID (Elution) MTS Gel Crossmatch See Detail Crossmatch Prewarmed See Detail Bld Prod Order Comment 11/20/18 11/20/18 11/21/18 14:00 16:24 10:53 WBC 25.4 H RBC 3.13 L Hgb 10.1 L D Hct 30.9 L MCV 98.6 D MCH 32.2 MCHC 32.6 RDW 23.2 H D Plt Count 410 MPV 7.9 Prelim Diff (Auto) Slide review pending Neut % (Auto) 91.4 H Lymph % (Auto) 5.9 L Osborne % (Auto) 2.5 Eos % (Auto) 0.0 Baso % (Auto) 0.2 Neut # (Auto) 23.2 H Lymph # (Auto) 1.5 Osborne # (Auto) 0.6 Eos # (Auto) 0.0 Baso # (Auto) 0.0 WBC Differential Manual diff final Seg Neuts % (Manual) 90 H Band Neuts % (Manual) 1 Lymphocytes % (Manual) 4 L Monocytes % (Manual) 3 Metamyelocytes % (Man) 1 Myelocytes % (Man) 1 H Abs Neuts (Manual) 23.6 H Nucleated RBCs/100 WBC 5 H Differential Comment . Hypersegmented Neuts 1+ H Platelet Estimate Normal Platelet Morphology Normal Dimorphic RBCs Present H Polychromasia 6.9 H Spherocytes 1+ H Sodium Potassium Chloride Carbon Dioxide Anion Gap BUN Creatinine Estimated GFR Random Glucose Calcium Vitamin B12 476 Folate Greater than 20.0 H TSH Beta HCG, Qual CSF Volume (1) CSF Supernat Color (1) CSF Gross Blood (1) CSF Volume (2) CSF Supernat Color (2) CSF Gross Blood (2) CSF Volume (3) CSF Supernat Color (3) CSF Gross Blood (3) CSF Volume (4) CSF Supernat Color (4) CSF Gross Blood (4) CSF WBC (4) CSF RBC (4) CSF Neutrophils % CSF Lymphocytes % CSF Monocytes % Antibody Identification Antibody ID (Elution) Panagglutinin MTS Gel Crossmatch Crossmatch Prewarmed Bld Prod Order Comment 11/21/18 11/21/18 11/21/18 10:53 10:53 10:53 WBC RBC Hgb Hct MCV MCH MCHC RDW Plt Count MPV Prelim Diff (Auto) Neut % (Auto) Lymph % (Auto) Osborne % (Auto) Eos % (Auto) Baso % (Auto) Neut # (Auto) Lymph # (Auto) Osborne # (Auto) Eos # (Auto) Baso # (Auto) WBC Differential Seg Neuts % (Manual) Band Neuts % (Manual) Lymphocytes % (Manual) Monocytes % (Manual) Metamyelocytes % (Man) Myelocytes % (Man) Abs Neuts (Manual) Nucleated RBCs/100 WBC Differential Comment Hypersegmented Neuts Platelet Estimate Platelet Morphology Dimorphic RBCs Polychromasia Spherocytes Sodium 140 Potassium 3.5 Chloride 111 H Carbon Dioxide 19.6 L Anion Gap 9 BUN 14 Creatinine 0.85 Estimated GFR 80 L Random Glucose 145 H Calcium 9.0 Vitamin B12 Folate TSH 0.325 L Beta HCG, Qual Less than 1.0 CSF Volume (1) CSF Supernat Color (1) CSF Gross Blood (1) CSF Volume (2) CSF Supernat Color (2) CSF Gross Blood (2) CSF Volume (3) CSF Supernat Color (3) CSF Gross Blood (3) CSF Volume (4) CSF Supernat Color (4) CSF Gross Blood (4) CSF WBC (4) CSF RBC (4) CSF Neutrophils % CSF Lymphocytes % CSF Monocytes % Antibody Identification Antibody ID (Elution) MTS Gel Crossmatch Crossmatch Prewarmed Bld Prod Order Comment Microbiology 11/19/18 18:30 Blood - Peripheral Aerobic Blood Culture - Preliminary No growth in 2 days 11/19/18 18:30 Blood - Peripheral Anaerobic Blood Culture - Preliminary No growth in 2 days 11/19/18 18:14 Blood - Peripheral Aerobic Blood Culture - Preliminary No growth in 2 days 11/19/18 18:14 Blood - Peripheral Anaerobic Blood Culture - Preliminary No growth in 2 days 11/20/18 11:01 Lumbar Puncture Gram Stain - Final 11/20/18 11:01 Lumbar Puncture CSF Culture - Preliminary No growth in 24 hours - Imaging Impressions Head/Brain Mag Res Venography 11/20/18 00:00 CONCLUSION: 1. Negative MRV Brain with and without contrast. Head CT 11/20/18 13:56 CONCLUSION: 1. No acute intracranial abnormality. . 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 She stated her symptoms began with bilateral earaches about 1 month prior to presentation and progressed to headache, fatigue , neck stiffness, and visual changes (blurriness, trouble concentrating). Was given amoxicillin and methylprednisolone 7 days ago at an urgent care clinic for suspected otitis media. Meningitis has been ruled out during this visit, LP normal and no fever. 1. Pseudomotor cerebri/Idiopathic intracranial hypertension -Symptoms have subsided post LP, done yesterday 11/20/18 -Neurology started patient on Acetazolamide -Discontinue Ceftriaxone 2g Q12 and Vancomycin which was given for suspected for meningitis. -Meningitis is unlikely, however. Patient does not have any fever and her symptoms started more than 7 days ago 2. 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 - consider IVIg and corticosteroids. If refractory, consider splenectomy. -Neurology also requested MRV of the brain. -s/p blood transfusion. Full code. Ambulation. Iesha Camara, MS3 - will review with attending, Dr. Bobby. (2) Leukocytosis Qualifiers: Qualified Code(s): D72.829 - Elevated white blood cell count, unspecified
--- NOTE | 2018-11-21 13:03 | CT ---
EXAM DATE: 11/21/2018 12:57 PM EST AGE/SEX: 28 years / Female INDICATIONS: Anemia, leukocytosis. Evaluate for lymphoma. CLINICAL DATA: This is the patient's initial encounter. Patient reports that signs and symptoms have been present for 1 day and indicates a pain score of 0/10. MEDICAL/SURGICAL HISTORY: None. None. ORAL CONTRAST: No oral contrast ingested. RADIATION DOSE: 5.20 CTDI (mGy) COMPARISON: No prior exams available for comparison. TECHNIQUE: Multiple contiguous axial images were obtained through the abdomen and pelvis following b olus infusion of 95 ml Omnipaque 350 (iohexol) nonionic water-soluble contrast as a single exam dos e. No oral contrast ingested. Using automated exposure control and adjustment of the mA and/or kV ac cording to patient size, radiation dose was kept as low as reasonably achievable to obtain optimal di agnostic quality images. DICOM format image data is available electronically for review and comparis on. FINDINGS: Lower Lungs: The visualized lower lungs are clear. Liver: The liver has a homogeneous density without space-occupying lesion. There is no dilation of th e biliary tree. No calcified gallstones. Spleen: Homogeneous density without enlargement. Pancreas: Unremarkable without mass or calcification. Kidneys: Normal in size and shape. No evidence of mass or hydronephrosis. Adrenal Glands: Unremarkable. Aorta: The aorta and proximal iliac vessels are grossly unremarkable without aneurysmal dilation. Bowel/Mesentery: No dilated loops of small or large bowel. Abdominal Wall: Intact. Retroperitoneum: No evidence of adenopathy in the retrocrural, para-aortic, or deep pelvic regions. Bladder: Contours are smooth. Reproductive Organs: No abnormal masses or calcifications seen. No evidence of free fluid. Inguinal: The inguinal region is unremarkable without evidence of adenopathy. Bony Structures: Unremarkable. CONCLUSION: 1. Normal CT abdomen/pelvis with contrast. Electronically signed by: Wander Ness MD Board Certified Radiologist 11/21/2018 1:02 PM EST
--- NOTE | 2018-11-21 13:05 | CT ---
EXAM DATE: 11/21/2018 12:59 PM EST AGE/SEX: 28 years / Female INDICATIONS: Anemia, leukocytosis. Evaluate for lymphoma. CLINICAL DATA: This is the patient's initial encounter. Patient reports that signs and symptoms have been present for 1 day and indicates a pain score of 0/10. MEDICAL/SURGICAL HISTORY: None. None. RADIATION DOSE: 5.2 CTDI (mGy) ; Combined studies COMPARISON: No prior exams available for comparison. TECHNIQUE: Multiple contiguous axial images were obtained through the chest during bolus infusion of 95 ml Omnipaque 350 (iohexol) nonionic water-soluble contrast as a cumulative dose for multiple exa ms. Images were obtained in suspended respiration using multiple row detector helical technique. U sing automated exposure control and adjustment of the mA and/or kV according to patient size, radiati on dose was kept as low as reasonably achievable to obtain optimal diagnostic quality images. DICOM format image data is available electronically for review and comparison. FINDINGS: Lungs: The lungs are symmetrically aerated. No infiltrates or nodular densities are seen. There are a few scattered small areas of increased ground substance throughout both lungs. Mediastinum: There is good visualization of the great vessels of the middle mediastinum. No evidenc e of mediastinal or hilar adenopathy/mass. Pleurae: No evidence of focal thickening or pleural effusion. Axillae: Unremarkable. Bony Structures: Unremarkable. Miscellaneous: The examination was extended to include the upper abdomen, and both adrenal glands ar e normal in size and configuration. CONCLUSION: 1. A few scattered small areas of increased ground substance in both lungs without focal consolidati on or nodularity. 2. No evidence of adenopathy. Electronically signed by: Wander Ness MD Board Certified Radiologist 11/21/2018 1:03 PM EST
--- NOTE | 2018-11-21 14:37 | P.PNIM ---
Subjective Interval history: Follow up for vision changes, neck stiffness, bilateral papilledema. Patient is currently doing better. Her vision is improving. Yesterday she could not read her phone screen. However today she can. No fever or chills. No significant headache. Physical Exam Vital signs: Vital Signs 11/20/18 15:20 11/20/18 16:44 11/20/18 16:55 Temperature 98.2 F 98.1 F 98.1 F Pulse Rate 94 H 99 H 97 H Respiratory Rate 20 20 18 Blood Pressure 128/62 118/60 118/60 Pulse Oximetry 100 97 11/20/18 16:58 11/20/18 17:15 11/20/18 19:30 Temperature 98 F 97.9 F 98.1 F Pulse Rate 95 H 96 H 95 H Respiratory Rate 20 19 19 Blood Pressure 114/61 126/60 118/72 Pulse Oximetry 97 11/20/18 20:00 11/20/18 20:30 11/20/18 23:45 Temperature 98.3 F 98.4 F 97.8 F Pulse Rate 96 H 91 H 80 Respiratory Rate 19 20 19 Blood Pressure 141/67 H 118/74 116/58 L Pulse Oximetry 96 98 97 11/21/18 00:00 11/21/18 00:15 11/21/18 00:28 Temperature 97.8 F 97.9 F 97.8 F Pulse Rate 80 82 81 Respiratory Rate 19 19 19 Blood Pressure 116/58 L 111/61 Pulse Oximetry 97 97 11/21/18 00:29 11/21/18 02:15 11/21/18 04:36 Temperature 97.5 F L 97.5 F L 98.0 F Pulse Rate 83 73 73 Respiratory Rate 20 19 20 Blood Pressure 109/59 L 113/61 127/83 Pulse Oximetry 97 96 99 11/21/18 08:10 11/21/18 11:20 Temperature 97.6 F 98.4 F Pulse Rate 81 80 Respiratory Rate 20 20 Blood Pressure 118/69 134/76 Pulse Oximetry 97 95 Intake & Output 11/20/18 11/21/18 11/21/18 18:59 06:59 18:59 Intake Total 1362.5 / 1362.5 2162.5 / 2162.5 362.5 / 362.5 Balance 1362.5 / 1362.5 2162.5 / 2162.5 362.5 / 362.5 Intake: IV 1362.5 / 1362.5 1362.5 / 1362.5 362.5 / 362.5 NS Inj 1,000 ML @ 70 mls/hr IV. 1000 / 1000 1000 / 1000 CONT .[id number] [facility] Rx#:[id number] Vancomycin Inj 1,250 MG In NS 262.5 / 262.5 262.5 / 262.5 262.5 / 262.5 Inj 250 ML @ 262.5 mls/hr IV. SIG Q12H [facility] Rx#:[id number] Rocephin Inj 2,000 MG In NS Inj 100 / 100 100 / 100 100 / 100 100 ML @ 200 mls/hr IV.SIG Q12H [facility] Rx#:[id number] Intake (Blood Product) Amt 0 / 0 800 / 800 Rbc As-3 Leukoreduced Unit 400 / 400 [id number] Rbc As-3 Leukoreduced Unit 0 / 0 400 / 400 [id number] Other: # Voids 3 3 Date of Last Bowel Movement 11/19/18 11/19/18 Narrative: GENERAL: Well-nourished, well-developed patient. SKIN: Warm and dry. HEAD: Normocephalic. EYES: No scleral icterus. No injection or drainage. NECK: Supple, trachea midline. No JVD or lymphadenopathy. CARDIOVASCULAR: Regular rate and rhythm without murmurs, gallops, or rubs. RESPIRATORY: Breath sounds equal bilaterally. No accessory muscle use. GASTROINTESTINAL: Abdomen soft, non-tender, nondistended. MUSCULOSKELETAL: No cyanosis, or edema. BACK: Nontender without obvious deformity. No CVA tenderness. Results Labs CBC & Chem 7: 11/21/18 10:53 11/21/18 10:53 Labs: Microbiology 11/19/18 18:30 Blood - Peripheral Aerobic Blood Culture - Preliminary No growth in 2 days 11/19/18 18:30 Blood - Peripheral Anaerobic Blood Culture - Preliminary No growth in 2 days 11/19/18 18:14 Blood - Peripheral Aerobic Blood Culture - Preliminary No growth in 2 days 11/19/18 18:14 Blood - Peripheral Anaerobic Blood Culture - Preliminary No growth in 2 days 11/20/18 11:01 Lumbar Puncture Gram Stain - Final 11/20/18 11:01 Lumbar Puncture CSF Culture - Preliminary No growth in 24 hours Imaging Imaging: Impressions Head/Brain Mag Res Venography 11/20/18 00:00 CONCLUSION: 1. Negative MRV Brain with and without contrast. Head CT 11/20/18 13:56 CONCLUSION: 1. No acute intracranial abnormality. . Abdomen/Pelvis CT 11/21/18 00:00 CONCLUSION: 1. Normal CT abdomen/pelvis with contrast. Chest CT 11/21/18 00:00 CONCLUSION: 1. A few scattered small areas of increased ground substance in both lungs without focal consolidation or nodularity. 2. No evidence of adenopathy. Assessment and Plan (1) Headache: Code(s): R51 - Headache Status: Acute (2) Leukocytosis: Code(s): D72.829 - Elevated white blood cell count, unspecified Status: Acute (3) Papilledema: Code(s): H47.10 - Unspecified papilledema Status: Acute (4) Pseudotumor cerebri: Code(s): G93.2 - Benign intracranial hypertension Status: Acute (5) Symptomatic anemia: Code(s): D64.9 - Anemia, unspecified Status: Acute Plan Ms. Long is a pleasant 28 year old female with no significant medical history who was admitted to the hospital on 11/20/2018 on the advise of her kettle cook due to bilateral papilledema. Patient has been complaining of headache, blurred vision as well as neck stiffness for more than a week prior to this hospitalization. Probable pseudomotor cerebri Possible bacterial meningitis -Patient's symptoms are consistent with pseudomotor cerebri. She had subside of her symptoms after LP. -Neurology started patient on Acetazolamide 250 mg twice daily. Will increase the dose to 500 mg twice daily. -We could add Lasix as well. We will follow clinically. -Meningitis is unlikely. Patient does not have any fever and her symptoms started more than 7 days ago We will discontinue antibiotics as well as dexamethasone. Anemia with unclear etiology -Paroxysmal nocturnal hemoglobinuria is a possibility. Will wait for further recs by Hematology. Flow cytometry to look for CD55 can be done. -unremarkable MRV of the brain. -s/p blood transfusion. -Bone marrow bx planned. Full code. Ambulation. Progress Note: Quality VTE Deep Vein Thrombosis/Pulmonary Embolism Present on Admission: No _ (1) Leukocytosis Qualifiers: Leukocytosis type: unspecified Qualified Code(s): D72.829 - Elevated white blood cell count, unspecified
--- NOTE | 2018-11-21 15:29 | P.PNID ---
Subjective Remarks: ID follow-up. I have reviewed the lumbar spinal fluid. The CSF culture has no growth in 24 hours. Patient has no fever. CSF testing is not indicated for of infection. I agree with stopping antibiotics. I will sign off now. Please follow the CSF culture to completion. Allergies/Adverse Reactions: Allergies No Known Allergies Allergy (Verified 11/19/18 17:44) Objective Vital Signs 11/20/18 16:44 11/20/18 16:55 11/20/18 16:58 Temperature 98.1 F 98.1 F 98 F Pulse Rate 99 H 97 H 95 H Respiratory Rate 20 18 20 Blood Pressure 118/60 118/60 114/61 Pulse Oximetry 97 11/20/18 17:15 11/20/18 19:30 11/20/18 20:00 Temperature 97.9 F 98.1 F 98.3 F Pulse Rate 96 H 95 H 96 H Respiratory Rate 19 19 19 Blood Pressure 126/60 118/72 141/67 H Pulse Oximetry 97 96 11/20/18 20:30 11/20/18 23:45 11/21/18 00:00 Temperature 98.4 F 97.8 F 97.8 F Pulse Rate 91 H 80 80 Respiratory Rate 20 19 19 Blood Pressure 118/74 116/58 L 116/58 L Pulse Oximetry 98 97 11/21/18 00:15 11/21/18 00:28 11/21/18 00:29 Temperature 97.9 F 97.8 F 97.5 F L Pulse Rate 82 81 83 Respiratory Rate 19 19 20 Blood Pressure 111/61 109/59 L Pulse Oximetry 97 97 97 11/21/18 02:15 11/21/18 04:36 11/21/18 08:10 Temperature 97.5 F L 98.0 F 97.6 F Pulse Rate 73 73 81 Respiratory Rate 19 20 20 Blood Pressure 113/61 127/83 118/69 Pulse Oximetry 96 99 97 11/21/18 11:20 Temperature 98.4 F Pulse Rate 80 Respiratory Rate 20 Blood Pressure 134/76 Pulse Oximetry 95 Intake & Output 11/20/18 11/21/18 11/21/18 18:59 06:59 18:59 Intake Total 1362.5 / 1362.5 2162.5 / 2162.5 362.5 / 362.5 Balance 1362.5 / 1362.5 2162.5 / 2162.5 362.5 / 362.5 Intake: IV 1362.5 / 1362.5 1362.5 / 1362.5 362.5 / 362.5 NS Inj 1,000 ML @ 70 mls/hr IV. 1000 / 1000 1000 / 1000 CONT .[id number] [facility] Rx#:[id number] Vancomycin Inj 1,250 MG In NS 262.5 / 262.5 262.5 / 262.5 262.5 / 262.5 Inj 250 ML @ 262.5 mls/hr IV. SIG Q12H [facility] Rx#:[id number] Rocephin Inj 2,000 MG In NS Inj 100 / 100 100 / 100 100 / 100 100 ML @ 200 mls/hr IV.SIG Q12H [facility] Rx#:[id number] Intake (Blood Product) Amt 0 / 0 800 / 800 Rbc As-3 Leukoreduced Unit 400 / 400 [id number] Rbc As-3 Leukoreduced Unit 0 / 0 400 / 400 [id number] Other: # Voids 3 3 Date of Last Bowel Movement 11/19/18 11/19/18 11/19/18 18:30 Blood - Peripheral Aerobic Blood Culture - Preliminary No growth in 2 days 11/19/18 18:30 Blood - Peripheral Anaerobic Blood Culture - Preliminary No growth in 2 days 11/19/18 18:14 Blood - Peripheral Aerobic Blood Culture - Preliminary No growth in 2 days 11/19/18 18:14 Blood - Peripheral Anaerobic Blood Culture - Preliminary No growth in 2 days 11/20/18 11:01 Lumbar Puncture Gram Stain - Final 11/20/18 11:01 Lumbar Puncture CSF Culture - Preliminary No growth in 24 hours Lab - Hematology Results 11/19/18 11/19/18 11/19/18 18:00 20:53 20:53 WBC 22.2 H RBC 1.84 L Hgb 6.5 L* Hct 19.5 L* MCV 106.3 H MCH 35.2 H MCHC 33.1 RDW 27.9 H Plt Count 424 MPV 7.4 Prelim Diff (Auto) Slide review pending Neut % (Auto) 78.0 H Lymph % (Auto) 13.9 [place] % (Auto) 7.3 Eos % (Auto) 0.2 Baso % (Auto) 0.6 Neut # (Auto) 17.3 H Lymph # (Auto) 3.1 [place] # (Auto) 1.6 H Eos # (Auto) 0.0 Baso # (Auto) 0.1 WBC Differential Manual diff final Seg Neuts % (Manual) 77 H Band Neuts % (Manual) 5 Lymphocytes % (Manual) 15 Monocytes % (Manual) 1 Eosinophils % (Manual) 1 Basophils % (Manual) 1 Metamyelocytes % (Man) Myelocytes % (Man) Abs Neuts (Manual) 18.2 H Nucleated RBCs/100 WBC 18 H Differential Comment . Hypersegmented Neuts Toxic Granulation 1+ H Platelet Estimate High H Platelet Morphology Normal Dimorphic RBCs Polychromasia 4.0 H Basophilic Stippling Faint H Spherocytes 2+ H ESR 82 H Haptoglobin Less than 10 L 11/21/18 10:53 WBC 25.4 H RBC 3.13 L Hgb 10.1 L D Hct 30.9 L MCV 98.6 D MCH 32.2 MCHC 32.6 RDW 23.2 H D Plt Count 410 MPV 7.9 Prelim Diff (Auto) Slide review pending Neut % (Auto) 91.4 H Lymph % (Auto) 5.9 L [place] % (Auto) 2.5 Eos % (Auto) 0.0 Baso % (Auto) 0.2 Neut # (Auto) 23.2 H Lymph # (Auto) 1.5 [place] # (Auto) 0.6 Eos # (Auto) 0.0 Baso # (Auto) 0.0 WBC Differential Manual diff final Seg Neuts % (Manual) 90 H Band Neuts % (Manual) 1 Lymphocytes % (Manual) 4 L Monocytes % (Manual) 3 Eosinophils % (Manual) Basophils % (Manual) Metamyelocytes % (Man) 1 Myelocytes % (Man) 1 H Abs Neuts (Manual) 23.6 H Nucleated RBCs/100 WBC 5 H Differential Comment . Hypersegmented Neuts 1+ H Toxic Granulation Platelet Estimate Normal Platelet Morphology Normal Dimorphic RBCs Present H Polychromasia 6.9 H Basophilic Stippling Spherocytes 1+ H ESR Haptoglobin Lab - Chemistry Results 11/19/18 11/19/18 11/19/18 18:00 18:00 18:44 Sodium 138 Potassium 3.7 Chloride 104 Carbon Dioxide 27.7 Anion Gap 6 BUN 16 Creatinine 0.73 Estimated GFR Greater than 89 Random Glucose 117 H Lactic Acid 1.2 Calcium 8.5 Iron 106 TIBC 406 % Saturation 26.1 Total Bilirubin 3.5 H AST 38 H ALT 20 Alkaline Phosphatase 92 Lactate Dehydrogenase Total Protein 7.7 Albumin 4.2 Vitamin B12 Folate TSH Beta HCG, Qual 11/19/18 11/20/18 11/21/18 20:53 16:24 10:53 Sodium 140 Potassium 3.5 Chloride 111 H Carbon Dioxide 19.6 L Anion Gap 9 BUN 14 Creatinine 0.85 Estimated GFR 80 L Random Glucose 145 H Lactic Acid Calcium 9.0 Iron TIBC % Saturation Total Bilirubin AST ALT Alkaline Phosphatase Lactate Dehydrogenase 686 H Total Protein Albumin Vitamin B12 476 Folate Greater than 20.0 H TSH Beta HCG, Qual 11/21/18 11/21/18 10:53 10:53 Sodium Potassium Chloride Carbon Dioxide Anion Gap BUN Creatinine Estimated GFR Random Glucose Lactic Acid Calcium Iron TIBC % Saturation Total Bilirubin AST ALT Alkaline Phosphatase Lactate Dehydrogenase Total Protein Albumin Vitamin B12 Folate TSH 0.325 L Beta HCG, Qual Less than 1.0 Imaging: ITS Impressions Orbit MRI 11/19/18 17:54 CONCLUSION: Mild ethmoid sinusitis. Otherwise normal orbit MRI with and without contrast. Head/Brain Mag Res Venography 11/20/18 00:00 CONCLUSION: 1. Negative MRV Brain with and without contrast. Lumbar Puncture Fluoroscopy 11/20/18 00:00 CONCLUSION: 1. Uncomplicated fluoroscopically guided lumbar puncture. 2. Abnormally elevated opening pressures of 44 cm of water. Closing pressures of 9 cm of water after removing 31 cc of CSF. Findings are characteristic of pseudotumor cerebri. Head CT 11/20/18 13:56 CONCLUSION: 1. No acute intracranial abnormality. . Abdomen/Pelvis CT 11/21/18 00:00 CONCLUSION: 1. Normal CT abdomen/pelvis with contrast. Chest CT 11/21/18 00:00 CONCLUSION: 1. A few scattered small areas of increased ground substance in both lungs without focal consolidation or nodularity. 2. No evidence of adenopathy.
--- NOTE | 2018-11-21 16:02 | P.PNONC ---
Subjective Interval history: Patient sitting up in bed with family at bedside. Denies any shortness of breath or chest pain. Objective Vital Signs/Intake & Output: Vital Signs 11/20/18 16:44 11/20/18 16:55 11/20/18 16:58 Temperature 98.1 F 98.1 F 98 F Pulse Rate 99 H 97 H 95 H Respiratory Rate 20 18 20 Blood Pressure 118/60 118/60 114/61 Pulse Oximetry 97 11/20/18 17:15 11/20/18 19:30 11/20/18 20:00 Temperature 97.9 F 98.1 F 98.3 F Pulse Rate 96 H 95 H 96 H Respiratory Rate 19 19 19 Blood Pressure 126/60 118/72 141/67 H Pulse Oximetry 97 96 11/20/18 20:30 11/20/18 23:45 11/21/18 00:00 Temperature 98.4 F 97.8 F 97.8 F Pulse Rate 91 H 80 80 Respiratory Rate 20 19 19 Blood Pressure 118/74 116/58 L 116/58 L Pulse Oximetry 98 97 11/21/18 00:15 11/21/18 00:28 11/21/18 00:29 Temperature 97.9 F 97.8 F 97.5 F L Pulse Rate 82 81 83 Respiratory Rate 19 19 20 Blood Pressure 111/61 109/59 L Pulse Oximetry 97 97 97 11/21/18 02:15 11/21/18 04:36 11/21/18 08:10 Temperature 97.5 F L 98.0 F 97.6 F Pulse Rate 73 73 81 Respiratory Rate 19 20 20 Blood Pressure 113/61 127/83 118/69 Pulse Oximetry 96 99 97 11/21/18 11:20 Temperature 98.4 F Pulse Rate 80 Respiratory Rate 20 Blood Pressure 134/76 Pulse Oximetry 95 Intake & Output 11/20/18 11/21/18 11/21/18 18:59 06:59 18:59 Intake Total 1362.5 / 1362.5 2162.5 / 2162.5 362.5 / 362.5 Balance 1362.5 / 1362.5 2162.5 / 2162.5 362.5 / 362.5 Intake: IV 1362.5 / 1362.5 1362.5 / 1362.5 362.5 / 362.5 NS Inj 1,000 ML @ 70 mls/hr IV. 1000 / 1000 1000 / 1000 CONT .[id number] [facility] Rx#:[id number] Vancomycin Inj 1,250 MG In NS 262.5 / 262.5 262.5 / 262.5 262.5 / 262.5 Inj 250 ML @ 262.5 mls/hr IV. SIG Q12H [facility] Rx#:[id number] Rocephin Inj 2,000 MG In NS Inj 100 / 100 100 / 100 100 / 100 100 ML @ 200 mls/hr IV.SIG Q12H [facility] Rx#:[id number] Intake (Blood Product) Amt 0 / 0 800 / 800 Rbc As-3 Leukoreduced Unit 400 / 400 [id number] Rbc As-3 Leukoreduced Unit 0 / 0 400 / 400 [id number] Other: # Voids 3 3 Date of Last Bowel Movement 11/19/18 11/19/18 Result Diagrams: 11/21/18 10:53 11/21/18 10:53 Laboratory Results: Laboratory Results - last 24 hr 11/19/18 11/20/18 11/21/18 18:44 16:24 10:53 WBC 25.4 H RBC 3.13 L Hgb 10.1 L D Hct 30.9 L MCV 98.6 D MCH 32.2 MCHC 32.6 RDW 23.2 H D Plt Count 410 MPV 7.9 Prelim Diff (Auto) Slide review pending Neut % (Auto) 91.4 H Lymph % (Auto) 5.9 L [place] % (Auto) 2.5 Eos % (Auto) 0.0 Baso % (Auto) 0.2 Neut # (Auto) 23.2 H Lymph # (Auto) 1.5 [place] # (Auto) 0.6 Eos # (Auto) 0.0 Baso # (Auto) 0.0 WBC Differential Manual diff final Seg Neuts % (Manual) 90 H Band Neuts % (Manual) 1 Lymphocytes % (Manual) 4 L Monocytes % (Manual) 3 Metamyelocytes % (Man) 1 Myelocytes % (Man) 1 H Abs Neuts (Manual) 23.6 H Nucleated RBCs/100 WBC 5 H Differential Comment . Hypersegmented Neuts 1+ H Platelet Estimate Normal Platelet Morphology Normal Dimorphic RBCs Present H Polychromasia 6.9 H Spherocytes 1+ H Sodium Potassium Chloride Carbon Dioxide Anion Gap BUN Creatinine Estimated GFR Random Glucose Calcium Vitamin B12 476 Folate Greater than 20.0 H TSH Beta HCG, Qual MTS Gel Crossmatch See Detail Crossmatch Prewarmed See Detail Bld Prod Order Comment 11/21/18 11/21/18 11/21/18 10:53 10:53 10:53 WBC RBC Hgb Hct MCV MCH MCHC RDW Plt Count MPV Prelim Diff (Auto) Neut % (Auto) Lymph % (Auto) [place] % (Auto) Eos % (Auto) Baso % (Auto) Neut # (Auto) Lymph # (Auto) [place] # (Auto) Eos # (Auto) Baso # (Auto) WBC Differential Seg Neuts % (Manual) Band Neuts % (Manual) Lymphocytes % (Manual) Monocytes % (Manual) Metamyelocytes % (Man) Myelocytes % (Man) Abs Neuts (Manual) Nucleated RBCs/100 WBC Differential Comment Hypersegmented Neuts Platelet Estimate Platelet Morphology Dimorphic RBCs Polychromasia Spherocytes Sodium 140 Potassium 3.5 Chloride 111 H Carbon Dioxide 19.6 L Anion Gap 9 BUN 14 Creatinine 0.85 Estimated GFR 80 L Random Glucose 145 H Calcium 9.0 Vitamin B12 Folate TSH 0.325 L Beta HCG, Qual Less than 1.0 MTS Gel Crossmatch Crossmatch Prewarmed Bld Prod Order Comment Culture Results: Microbiology 11/19/18 18:30 Aerobic Blood Culture - Preliminary Blood - Peripheral No growth in 2 days Anaerobic Blood Culture - Preliminary No growth in 2 days 11/19/18 18:14 Aerobic Blood Culture - Preliminary Blood - Peripheral No growth in 2 days Anaerobic Blood Culture - Preliminary No growth in 2 days 11/20/18 11:01 Gram Stain - Final Lumbar Puncture CSF Culture - Preliminary No growth in 24 hours Imaging Studies: Impressions Head/Brain Mag Res Venography 11/20/18 00:00 CONCLUSION: 1. Negative MRV Brain with and without contrast. Abdomen/Pelvis CT 11/21/18 00:00 CONCLUSION: 1. Normal CT abdomen/pelvis with contrast. Chest CT 11/21/18 00:00 CONCLUSION: 1. A few scattered small areas of increased ground substance in both lungs without focal consolidation or nodularity. 2. No evidence of adenopathy. Medications: Active Medications Generic Name Dose Route Start Last Admin Trade Name Freq PRN Reason Stop Dose Admin Sodium Chloride 1,000 mls @ 70 mls/hr 11/20/18 00:15 11/21/18 11:02 Ns Inj IV.CONT 70 mls/hr .[id number] [facility] Administration Senna/Docusate Sodium 1 tab 11/20/18 09:00 11/21/18 08:02 Bridgett-Colace PO 1 tab BID [facility] Administration Sodium Chloride 2 ml 11/19/18 17:54 11/20/18 23:03 Ns Flush IV.FLUSH 2 ml PRN PRN Administration FLUSH AFTER USING IV ACCESS Sodium Chloride 2 ml 11/20/18 09:00 11/21/18 08:03 Ns Flush IV.FLUSH Not Given BID [facility] Sodium Chloride 2 ml 11/20/18 00:04 11/21/18 05:11 Ns Flush IV.FLUSH 2 ml PRN PRN Administration FLUSH AFTER USING IV ACCESS Objective Remarks: GENERAL: Well-nourished, well-developed female patient. SKIN: Sallow, pale, warm and dry. HEAD: Normocephalic. EYES: No scleral icterus. No injection or drainage. NECK: Supple, trachea midline. CARDIOVASCULAR: Regular rate and rhythm without murmurs. RESPIRATORY: Posterior breath sounds equal bilaterally. No accessory muscle use. GASTROINTESTINAL: Abdomen soft, non-tender, nondistended. EXTREMITIES: No cyanosis, or edema. MUSCULOSKELETAL: Adequate muscle tone. NEUROLOGICAL: No obvious focal deficit. Awake, alert, and oriented x3. PSYCHIATRIC: Appropriate mood and affect; insight and judgment normal. Assessment/Plan - Plan This is a pleasant 28-year-old female admitted to the hospital with a severe anemia and papilledema noted by studio coordinator. Hematology has been consulted in relation to the severe anemia. Plan: 1. Hemolytic anemiabone marrow biopsy with cytometry and culture ordered. Patient has received 2 units of leuko-reduced RBCs and hemoglobin has increased from 6.5 on 11/19/2018 to 10.1 on 11/21/2018. We will continue to monitor CBC. Methylmalonic acid results pending. 2. Vision changes, subjectively reports slight improvement. Patient reports syncopal episode yesterday after lumbar puncture. Neurology is following. Continues on steroids. 3. 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 Leukocytosis with reactive features, multiple possible causes therefore we will proceed with bone marrow biopsy CT chest abdomen and pelvis with contrast, beta hCG ordered. - Attending Statement The exam, history, and the medical decision-making described in the above note were completed with the assistance of the mid-level provider. I reviewed and agree with the findings presented. I attest that I had a [id number] encounter with the patient on the same day, and personally performed and documented my assessment and findings in the medical record. Patient stated that her headache and visual changes have improved after the lumbar puncture. She fell last night after the lumbar puncture. She has some soreness in her posterior scalp. She had MR venogram which did not show any thrombosis. She was evaluated by neurology and felt that she has pseudotumor cerebri. It is unclear if the pseudotumor cerebri is related to her warm antibody hemolytic anemia. Her hemoglobin has trended up with transfusion. She has been on Decadron. We will recommend keeping her on prednisone 60 mg daily. Will get CT scan to see if she has any adenopathy or splenomegaly or occult lymphoproliferative disorder. We will also get bone marrow biopsy to look for occult lymphoproliferative disorder. Monitor CBC.
[2018-11-22] MEDS ORDERED: Pharmacy Ordered Lab Info OTHER ONE (00:45)
[2018-11-22] MEDS: Sod Chloride 0.9% Inj 1,000 ML IV.CONT SCH (05:03)
[2018-11-22 07:29] LABS: Baso # (Auto) 0.1 th/mm3 (0.0-0.2); Baso % (Auto) 0.3 % (0.0-2.0); Eos % (Auto) 0.1 % (0.0-4.0); Hematocrit 29.6 % (35.0-46.0); Hemoglobin 9.6 gm/dL (11.6-15.3); Lymph # (Auto) 3.3 th/mm3 (1.0-4.8); Lymph % (Auto) 14.9 % (9.0-44.0); Mean Corpuscular HGB Conc 32.5 % (32.0-36.0); Mean Corpuscular Hemoglobin 32.6 pg (27.0-34.0); Mean Corpuscular Volume 100.2 fL (80.0-100.0); Mean Platelet Volume 8.1 fL (7.0-11.0); Mono # (Auto) 1.3 th/mm3 (0.0-0.9); Mono % (Auto) 6.1 % (0.0-8.0); Neut # (Auto) 17.5 th/mm3 (1.8-7.7); Neut % (Auto) 78.6 % (16.0-70.0); Platelet Count 362 th/mm3 (150-450); Red Blood Count 2.95 mil/mm3 (4.00-5.30); Red Cell Distribution Width 24.1 % (11.6-17.2); White Blood Count 22.2 th/mm3 (4.0-11.0)
--- NOTE | 2018-11-22 07:50 | P.PNONC ---
Subjective Interval history: Patient is feeling better. Headache has resolved. Still has blurry vision but improved. Anxious about bone marrow biopsy. Denies any chest pain or shortness of breath. Denies any abdominal pain. Objective Vital Signs/Intake & Output: Vital Signs 11/21/18 08:10 11/21/18 11:20 11/21/18 15:45 Temperature 97.6 F 98.4 F 98 F Pulse Rate 81 80 77 Respiratory Rate 20 20 20 Blood Pressure 118/69 134/76 120/60 Pulse Oximetry 97 95 96 11/21/18 19:22 11/22/18 00:00 11/22/18 04:07 Temperature 97.7 F 97.4 F L 97.6 F Pulse Rate 85 84 74 Respiratory Rate 18 18 18 Blood Pressure 112/61 120/62 128/60 Pulse Oximetry 97 99 99 Intake & Output 11/21/18 11/22/18 11/22/18 18:59 06:59 18:59 Intake Total 362.5 / 362.5 1000 / 1000 Balance 362.5 / 362.5 1000 / 1000 Intake: IV 362.5 / 362.5 1000 / 1000 NS Inj 1,000 ML @ 70 mls/hr IV. 1000 / 1000 CONT .[id number] [facility] Rx#:[id number] Vancomycin Inj 1,250 MG In NS 262.5 / 262.5 Inj 250 ML @ 262.5 mls/hr IV. SIG Q12H [facility] Rx#:[id number] Rocephin Inj 2,000 MG In NS Inj 100 / 100 100 ML @ 200 mls/hr IV.SIG Q12H [facility] Rx#:[id number] Other: # Voids 3 2 Date of Last Bowel Movement 11/21/18 11/20/18 # Bowel Movements 1 Result Diagrams: 11/22/18 06:09 11/21/18 10:53 Laboratory Results: Laboratory Results - last 24 hr 11/21/18 11/21/18 11/21/18 10:53 10:53 10:53 WBC 25.4 H RBC 3.13 L Hgb 10.1 L D Hct 30.9 L MCV 98.6 D MCH 32.2 MCHC 32.6 RDW 23.2 H D Plt Count 410 MPV 7.9 Prelim Diff (Auto) Slide review pending Neut % (Auto) 91.4 H Lymph % (Auto) 5.9 L [place] % (Auto) 2.5 Eos % (Auto) 0.0 Baso % (Auto) 0.2 Neut # (Auto) 23.2 H Lymph # (Auto) 1.5 [place] # (Auto) 0.6 Eos # (Auto) 0.0 Baso # (Auto) 0.0 WBC Differential Manual diff final Seg Neuts % (Manual) 90 H Band Neuts % (Manual) 1 Lymphocytes % (Manual) 4 L Monocytes % (Manual) 3 Metamyelocytes % (Man) 1 Myelocytes % (Man) 1 H Abs Neuts (Manual) 23.6 H Nucleated RBCs/100 WBC 5 H Differential Comment . Hypersegmented Neuts 1+ H Platelet Estimate Normal Platelet Morphology Normal Dimorphic RBCs Present H Polychromasia 6.9 H Spherocytes 1+ H Sodium 140 Potassium 3.5 Chloride 111 H Carbon Dioxide 19.6 L Anion Gap 9 BUN 14 Creatinine 0.85 Estimated GFR 80 L Random Glucose 145 H Calcium 9.0 TSH 0.325 L Beta HCG, Qual 11/21/18 11/22/18 10:53 06:09 WBC 22.2 H RBC 2.95 L Hgb 9.6 L Hct 29.6 L MCV 100.2 H MCH 32.6 MCHC 32.5 RDW 24.1 H Plt Count 362 MPV 8.1 Prelim Diff (Auto) Slide review pending Neut % (Auto) 78.6 H Lymph % (Auto) 14.9 [place] % (Auto) 6.1 Eos % (Auto) 0.1 Baso % (Auto) 0.3 Neut # (Auto) 17.5 H Lymph # (Auto) 3.3 [place] # (Auto) 1.3 H Eos # (Auto) 0.0 Baso # (Auto) 0.1 WBC Differential Seg Neuts % (Manual) Band Neuts % (Manual) Lymphocytes % (Manual) Monocytes % (Manual) Metamyelocytes % (Man) Myelocytes % (Man) Abs Neuts (Manual) Nucleated RBCs/100 WBC Differential Comment . Hypersegmented Neuts Platelet Estimate Platelet Morphology Dimorphic RBCs Polychromasia Spherocytes Sodium Potassium Chloride Carbon Dioxide Anion Gap BUN Creatinine Estimated GFR Random Glucose Calcium TSH Beta HCG, Qual Less than 1.0 Culture Results: Microbiology 11/19/18 18:30 Aerobic Blood Culture - Preliminary Blood - Peripheral No growth in 2 days Anaerobic Blood Culture - Preliminary No growth in 2 days 11/19/18 18:14 Aerobic Blood Culture - Preliminary Blood - Peripheral No growth in 2 days Anaerobic Blood Culture - Preliminary No growth in 2 days 11/20/18 11:01 Gram Stain - Final Lumbar Puncture CSF Culture - Preliminary No growth in 24 hours Imaging Studies: Impressions Abdomen/Pelvis CT 11/21/18 00:00 CONCLUSION: 1. Normal CT abdomen/pelvis with contrast. Chest CT 11/21/18 00:00 CONCLUSION: 1. A few scattered small areas of increased ground substance in both lungs without focal consolidation or nodularity. 2. No evidence of adenopathy. Medications: Active Medications Generic Name Dose Route Start Last Admin Trade Name Freq PRN Reason Stop Dose Admin Acetazolamide 500 mg 11/21/18 16:00 11/21/18 21:22 Diamox PO 500 mg Q12HR [facility] Administration Sodium Chloride 1,000 mls @ 70 mls/hr 11/20/18 00:15 11/22/18 05:03 Ns Inj IV.CONT 70 mls/hr .[id number] [facility] Administration Senna/Docusate Sodium 1 tab 11/20/18 09:00 11/21/18 21:24 Bridgett-Colace PO Not Given BID [facility] Sodium Chloride 2 ml 11/19/18 17:54 11/20/18 23:03 Ns Flush IV.FLUSH 2 ml PRN PRN Administration FLUSH AFTER USING IV ACCESS Sodium Chloride 2 ml 11/20/18 09:00 11/21/18 21:24 Ns Flush IV.FLUSH Not Given BID [facility] Sodium Chloride 2 ml 11/20/18 00:04 11/21/18 05:11 Ns Flush IV.FLUSH 2 ml PRN PRN Administration FLUSH AFTER USING IV ACCESS Objective Remarks: GENERAL: Well-nourished, well-developed patient. Overweight. SKIN: Warm and dry. HEAD: Normocephalic. EYES: No scleral icterus. No injection or drainage. NECK: Supple, trachea midline. No JVD or lymphadenopathy. LYMPHATIC: No adenopathy. CARDIOVASCULAR: Regular rate and rhythm without murmurs. RESPIRATORY: Breath sounds equal bilaterally. No accessory muscle use. GASTROINTESTINAL: Abdomen soft, non-tender, nondistended. EXTREMITIES: No cyanosis, or edema. MUSCULOSKELETAL: Adequate muscle tone. NEUROLOGICAL: No obvious focal deficit. Awake, alert, and oriented x3. PSYCHIATRIC: Appropriate mood and affect; insight and judgment normal. Assessment/Plan - Plan This is a pleasant 28-year-old female admitted to the hospital with a severe anemia and papilledema noted by full fashioned garment knitter. Hematology has been consulted in relation to the severe anemia. Plan: 1. Warm antibody hemolytic anemia, etiology unclear. She received 2 units of packed red blood cells and hemoglobin trended up to 10.1. Review of CT with patient and her mother. CT scan did not show any obvious lymphadenopathy or splenomegaly. Will get bone marrow biopsy to look for occult lymphoproliferative disorder. I doubt that she has PNH given it is warm antibody hemolytic anemia with positive Ayan test and no obvious thromboses noted. Will start prednisone and slowly taper when she has good response. We will continue to monitor CBC. Methylmalonic acid results pending. 2. Pseudotumor cerebri. MR venogram did not show any thrombosis. Management per neurology. Her headache and vision changes have improved. 3. Leukocytosis due to reactive process and steroid. Will get bone marrow biopsy for further evaluation.
[2018-11-22 07:59] LABS: Glomerular Filtration Rate Greater Than 89 mL/min (>89)
[2018-11-22 08:01] LABS: Lactate Dehydrogenase 819 U/L (84-246)
[2018-11-22] MEDS: acetaZOLAMIDE 250 MG TABLET PO SCH (08:29)
[2018-11-22] MEDS: Senna/Docusate Sodium 8.6/50 MG Tablet PO SCH (08:30)
[2018-11-22] MEDS: predniSONE 20 MG Tablet PO SCH (08:30)
[2018-11-22 08:40] LABS: Lymphocytes 16 % (9-44); Monocytes 9 % (0-8); Myelocytes 1 % (0-0); Platelet Estimate Normal (Normal); Platelet Morphology Normal (Normal); Tallied Nucleated RBC 1 (0-0)
[2018-11-22 08:45] LABS: Polychromasia 6.4 % (0.0-1.9)
[2018-11-22 08:46] LABS: Dimorphic RBC Present; Hypersegmented Neutrophils 1+; Pappenheimer Bodies Present; Spherocytes 2+
--- NOTE | 2018-11-22 08:57 | P.PNIM ---
Physical Exam Vital signs: Vital Signs 11/21/18 11:20 11/21/18 15:45 11/21/18 19:22 Temperature 98.4 F 98 F 97.7 F Pulse Rate 80 77 85 Respiratory Rate 20 20 18 Blood Pressure 134/76 120/60 112/61 Pulse Oximetry 95 96 97 11/22/18 00:00 11/22/18 04:07 11/22/18 07:48 Temperature 97.4 F L 97.6 F 97.7 F Pulse Rate 84 74 78 Respiratory Rate 18 18 18 Blood Pressure 120/62 128/60 115/56 L Pulse Oximetry 99 99 98 Intake & Output 11/21/18 11/22/18 11/22/18 18:59 06:59 18:59 Intake Total 362.5 / 362.5 1000 / 1000 Balance 362.5 / 362.5 1000 / 1000 Intake: IV 362.5 / 362.5 1000 / 1000 NS Inj 1,000 ML @ 70 mls/hr IV. 1000 / 1000 CONT .[id number] [facility] Rx#:[id number] Vancomycin Inj 1,250 MG In NS 262.5 / 262.5 Inj 250 ML @ 262.5 mls/hr IV. SIG Q12H [facility] Rx#:[id number] Rocephin Inj 2,000 MG In NS Inj 100 / 100 100 ML @ 200 mls/hr IV.SIG Q12H [facility] Rx#:[id number] Other: # Voids 3 2 Date of Last Bowel Movement 11/21/18 11/20/18 # Bowel Movements 1 Results - Labs CBC & Chem 7: 11/22/18 06:09 11/22/18 06:09 Laboratory Results - last 24 hr 11/21/18 11/21/18 11/21/18 10:53 10:53 10:53 WBC 25.4 H RBC 3.13 L Hgb 10.1 L D Hct 30.9 L MCV 98.6 D MCH 32.2 MCHC 32.6 RDW 23.2 H D Plt Count 410 MPV 7.9 Prelim Diff (Auto) Slide review pending Neut % (Auto) 91.4 H Lymph % (Auto) 5.9 L [place] % (Auto) 2.5 Eos % (Auto) 0.0 Baso % (Auto) 0.2 Neut # (Auto) 23.2 H Lymph # (Auto) 1.5 [place] # (Auto) 0.6 Eos # (Auto) 0.0 Baso # (Auto) 0.0 WBC Differential Manual diff final Seg Neuts % (Manual) 90 H Band Neuts % (Manual) 1 Lymphocytes % (Manual) 4 L Monocytes % (Manual) 3 Metamyelocytes % (Man) 1 Myelocytes % (Man) 1 H Abs Neuts (Manual) 23.6 H Nucleated RBCs/100 WBC 5 H Differential Comment . Hypersegmented Neuts 1+ H Platelet Estimate Normal Platelet Morphology Normal Dimorphic RBCs Present H Polychromasia 6.9 H Spherocytes 1+ H Pappenheimer Bodies Sodium 140 Potassium 3.5 Chloride 111 H Carbon Dioxide 19.6 L Anion Gap 9 BUN 14 Creatinine 0.85 Estimated GFR 80 L Random Glucose 145 H Calcium 9.0 Total Bilirubin Lactate Dehydrogenase TSH 0.325 L Beta HCG, Qual 11/21/18 11/22/18 11/22/18 10:53 06:09 06:09 WBC 22.2 H RBC 2.95 L Hgb 9.6 L Hct 29.6 L MCV 100.2 H MCH 32.6 MCHC 32.5 RDW 24.1 H Plt Count 362 MPV 8.1 Prelim Diff (Auto) Slide review pending Neut % (Auto) 78.6 H Lymph % (Auto) 14.9 [place] % (Auto) 6.1 Eos % (Auto) 0.1 Baso % (Auto) 0.3 Neut # (Auto) 17.5 H Lymph # (Auto) 3.3 [place] # (Auto) 1.3 H Eos # (Auto) 0.0 Baso # (Auto) 0.1 WBC Differential Manual diff final Seg Neuts % (Manual) 71 H Band Neuts % (Manual) 3 Lymphocytes % (Manual) 16 Monocytes % (Manual) 9 H Metamyelocytes % (Man) Myelocytes % (Man) 1 H Abs Neuts (Manual) 16.7 H Nucleated RBCs/100 WBC 1 H Differential Comment . Hypersegmented Neuts 1+ H Platelet Estimate Normal Platelet Morphology Normal Dimorphic RBCs Present H Polychromasia 6.4 H Spherocytes 2+ H Pappenheimer Bodies Present H Sodium Potassium Chloride Carbon Dioxide Anion Gap BUN Creatinine 0.77 Estimated GFR Greater than 89 Random Glucose Calcium Total Bilirubin 2.2 H Lactate Dehydrogenase 819 H TSH Beta HCG, Qual Less than 1.0 Microbiology 11/20/18 11:01 Lumbar Puncture Gram Stain - Final 11/20/18 11:01 Lumbar Puncture CSF Culture - Preliminary No growth in 48 hours 11/19/18 18:30 Blood - Peripheral Aerobic Blood Culture - Preliminary No growth in 2 days 11/19/18 18:30 Blood - Peripheral Anaerobic Blood Culture - Preliminary No growth in 2 days 11/19/18 18:14 Blood - Peripheral Aerobic Blood Culture - Preliminary No growth in 2 days 11/19/18 18:14 Blood - Peripheral Anaerobic Blood Culture - Preliminary No growth in 2 days - Imaging Impressions Abdomen/Pelvis CT 11/21/18 00:00 CONCLUSION: 1. Normal CT abdomen/pelvis with contrast. Chest CT 11/21/18 00:00 CONCLUSION: 1. A few scattered small areas of increased ground substance in both lungs without focal consolidation or nodularity. 2. No evidence of adenopathy. Assessment and Plan - Assessment (1) Headache Code(s): R51 - Headache Status: Acute (2) Leukocytosis Code(s): D72.829 - Elevated white blood cell count, unspecified Status: Acute (3) Papilledema Code(s): H47.10 - Unspecified papilledema Status: Acute (4) Pseudotumor cerebri Code(s): G93.2 - Benign intracranial hypertension Status: Acute (5) Symptomatic anemia Code(s): D64.9 - Anemia, unspecified Status: Acute - Plan This is a 28 year old overweight female with no significant PMH who was admitted to the hospital yesterday 11/20/18 at the advice of her distribution estimator due to bilateral papilledema. She stated her symptoms began with bilateral earaches about 1 month prior to presentation and progressed to headache, fatigue , neck stiffness, and visual changes (blurriness, trouble concentrating). Was given amoxicillin and methylprednisolone 7 days ago at an urgent care clinic for suspected otitis media. Meningitis has been ruled out during this visit, LP normal and no fever. 1. Pseudomotor cerebri/Idiopathic intracranial hypertension -Symptoms have subsided post LP, done yesterday 11/20/18 -Neurology started patient on Acetazolamide -Discontinue Ceftriaxone 2g Q12 and Vancomycin which was given for suspected for meningitis. -Meningitis is unlikely, however. Patient does not have any fever and her symptoms started more than 7 days ago 2. 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 - consider IVIg and corticosteroids. If refractory, consider splenectomy. -Neurology also requested MRV of the brain. -s/p blood transfusion. -BM biopsy today 11/22/18 to evaluate for secondary causes Full code. Ambulation. Iesha Camara, MS3 - will review with attending, Dr. Bobby. (2) Leukocytosis Qualifiers: Qualified Code(s): D72.829 - Elevated white blood cell count, unspecified
[2018-11-22] MEDS ORDERED: fentaNYL Citrate Inj 250 MCG/5 ML Ampul ONE (13:46)
[2018-11-22] MEDS ORDERED: Lidocaine 1%/Epinephrine 1:100,000 Inj 20 ML Vial I-DERMAL ONE (15:40)
--- NOTE | 2018-11-22 16:13 | P.RAD ---
Post CT Procedure Prog Note - Pre Procedure Diagnosis (1) Leukocytosis - Post Procedure Diagnosis (1) Leukocytosis - Procedure Information Procedure Date: 11/22/18 Supervising Radiologist: Joseluis Fay MD Estimated blood loss (mL): 7 Anesthesia: Local, Analgesia, Conscious Sedation - Plan of Activity Patient to Unit: [facility]OPU Patient condition: Good See PACS Report for procedural detail/treatment. Biopsy CT right Bone Marrow Specimen: Core Biopsy, Fine Needle Aspirate
[2018-11-22 16:19] LABS: Iron Stain Bone Marrow Done
--- NOTE | 2018-11-22 16:43 | CT ---
EXAM DATE: 11/22/2018 3:42 PM EST AGE/SEX: 28 years / Female INDICATIONS: Suspected lymphoma. CLINICAL DATA: This is the patient's initial encounter. Patient reports that signs and symptoms have been present for 1 day and indicates a pain score of 0/10. MEDICAL/SURGICAL HISTORY: Anemia. None. COMPARISON: No prior exams available for comparison. SEDATION TIME (min): 30 BIOPSY SITE: Right bone marrow MEDICATION(S): 3.5mg midazolam (Versed) IV 150mcg fentanyl (Sublimaze) IV DEVICE(S): 11 gauge Bone marrow biopsy needle One core specimen(s) sent to the laboratory for pathologic evaluation. . . PROCEDURE: CT guided Right bone marrow biopsy Conscious sedation with continuous EKG and oximetry monitoring. EKG and oximetry remained stable throughout the procedure. Prior to the procedure informed consent was obtained. Any appropriate prior imaging studies were rev iewed. Using automated exposure control and adjustment of the mA and/or kV according to patient size , radiation dose was kept as low as reasonably achievable to obtain optimal diagnostic quality images . DICOM format image data is available electronically for review and comparison. The site was prepped in a sterile fashion. Full sterile technique was used, including cap, mask, nirav rile gloves and gown and a large sterile sheet. Hand hygiene and 2% chlorhexidine and/or betadine/al cohol prep was utilized per protocol for cutaneous antisepsis. The skin and subcutaneous tissues wer e infiltrated with local anesthetic solution. With CT guidance the previously identified target was localized. Biopsy was performed using the presc ribed needle as above. Following biopsy marrow aspiration was performed with repeat puncture. [place] te hemostasis was obtained with compression at the puncture site. Follow-up CT scan reveals no hemorrhage. Conscious sedation was performed with the prescribed dosages and duration as above in the presence of an independent trained radiology nurse to assist in the monitoring of the patient. EKG and oximetry remained stable throughout the procedure. The patient tolerated the procedure well and there were no complications. The patient was sent to Radiology Outpatient Unit in stable condition. CONCLUSION: 1. Uncomplicated CT guided bone marrow aspirate. 2. Uncomplicated CT guided bone marrow biopsy. Electronically signed by: Joseluis Fay MD Board Certified Radiologist 11/22/2018 4:42 PM EST
--- NOTE | 2018-11-22 18:54 | P.PNNEU ---
Subjective Subjective Comments: headache resolved. Vision improved Active Medications: Active Medications Acetaminophen (Tylenol) 650 mg PO Q4H PRN PRN Reason: Temp > 100.4 Acetazolamide (Diamox) 500 mg PO Q12HR [facility] Last Admin: 11/22/18 08:29 Dose: 500 mg Al Hydroxide/Mg Hydroxide (Milk Of Magnesia Liq) 30 ml PO Q12H PRN PRN Reason: Mild Constipation Bisacodyl (Dulcolax Supp) 10 mg RECTAL DAILY PRN PRN Reason: SEVERE CONSITIPATION Sodium Chloride (Ns Inj) 1,000 mls @ 70 mls/hr IV.CONT .[id number] [facility] Last Admin: 11/22/18 05:03 Dose: 70 mls/hr Lactulose (Lactulose Liq) 30 ml PO DAILY PRN PRN Reason: SEVERE CONSITIPATION Ondansetron HCl (Zofran Inj) 4 mg IV.PUSH Q6H PRN PRN Reason: NAUSEA OR VOMITING Prednisone (Deltasone) 60 mg PO DAILY [facility] Last Admin: 11/22/18 08:30 Dose: 60 mg Senna/Docusate Sodium (Bridgett-Colace) 1 tab PO BID [facility] Last Admin: 11/22/18 08:30 Dose: Not Given Sennosides (Senokot) 17.2 mg PO Q12H PRN PRN Reason: Moderate Constipation Sodium Chloride (Ns Flush) 2 ml IV.FLUSH PRN PRN PRN Reason: FLUSH AFTER USING IV ACCESS Last Admin: 11/20/18 23:03 Dose: 2 ml Sodium Chloride (Ns Flush) 2 ml IV.FLUSH BID [facility] Last Admin: 11/22/18 08:30 Dose: Not Given Sodium Chloride (Ns Flush) 2 ml IV.FLUSH PRN PRN PRN Reason: FLUSH AFTER USING IV ACCESS Last Admin: 11/21/18 05:11 Dose: 2 ml Allergies/Adverse Reactions: Allergies Allergy/AdvReac Type Severity Reaction Status Date / Time No Known Allergies Allergy Verified 11/19/18 17:44 Physical Exam Vital signs: Vital Signs 11/21/18 19:22 11/22/18 00:00 11/22/18 04:07 Temperature 97.7 F 97.4 F L 97.6 F Pulse Rate 85 84 74 Respiratory Rate 18 18 18 Blood Pressure 112/61 120/62 128/60 Pulse Oximetry 97 99 99 11/22/18 07:48 11/22/18 12:28 11/22/18 15:30 Temperature 97.7 F 97.9 F 98.2 F Pulse Rate 78 80 82 Respiratory Rate 18 16 18 Blood Pressure 115/56 L 118/58 L 116/64 Pulse Oximetry 98 100 95 11/22/18 15:45 11/22/18 16:14 11/22/18 16:27 Temperature 97.5 F L 97.7 F Pulse Rate 85 66 83 Respiratory Rate 18 18 16 Blood Pressure 124/60 120/57 L 116/61 Pulse Oximetry 98 100 99 11/22/18 16:57 11/22/18 17:27 11/22/18 17:57 Temperature 97.7 F 97.5 F L 97.9 F Pulse Rate 79 80 84 Respiratory Rate 16 18 20 Blood Pressure 119/58 L 119/56 L 124/59 L Pulse Oximetry 99 98 99 Intake & Output 11/21/18 11/22/18 11/22/18 18:59 06:59 18:59 Intake Total 362.5 / 362.5 1000 / 1000 Balance 362.5 / 362.5 1000 / 1000 Intake: IV 362.5 / 362.5 1000 / 1000 NS Inj 1,000 ML @ 70 mls/hr IV. 1000 / 1000 CONT .[id number] [facility] Rx#:[id number] Vancomycin Inj 1,250 MG In NS 262.5 / 262.5 Inj 250 ML @ 262.5 mls/hr IV. SIG Q12H [facility] Rx#:[id number] Rocephin Inj 2,000 MG In NS Inj 100 / 100 100 ML @ 200 mls/hr IV.SIG Q12H [facility] Rx#:[id number] Other: # Voids 3 2 Date of Last Bowel Movement 11/21/18 11/20/18 # Bowel Movements 1 - Routine Neurological Exam alert, speech normal CN --perrl. visual solis normal to confrontation. EOM intact MOTOR 5/5 BUE Objective Radiology Results: MR venogram--no sinus thrombosis Laboratory Results - last 24 hr 11/22/18 11/22/18 06:09 06:09 WBC 22.2 H RBC 2.95 L Hgb 9.6 L Hct 29.6 L MCV 100.2 H MCH 32.6 MCHC 32.5 RDW 24.1 H Plt Count 362 MPV 8.1 Prelim Diff (Auto) Slide review pending Neut % (Auto) 78.6 H Lymph % (Auto) 14.9 [place] % (Auto) 6.1 Eos % (Auto) 0.1 Baso % (Auto) 0.3 Neut # (Auto) 17.5 H Lymph # (Auto) 3.3 [place] # (Auto) 1.3 H Eos # (Auto) 0.0 Baso # (Auto) 0.1 WBC Differential Manual diff final Seg Neuts % (Manual) 71 H Band Neuts % (Manual) 3 Lymphocytes % (Manual) 16 Monocytes % (Manual) 9 H Myelocytes % (Man) 1 H Abs Neuts (Manual) 16.7 H Nucleated RBCs/100 WBC 1 H Differential Comment . Hypersegmented Neuts 1+ H Platelet Estimate Normal Platelet Morphology Normal Dimorphic RBCs Present H Polychromasia 6.4 H Spherocytes 2+ H Pappenheimer Bodies Present H Creatinine 0.77 Estimated GFR Greater than 89 Total Bilirubin 2.2 H Lactate Dehydrogenase 819 H Microbiology 11/19/18 18:30 Aerobic Blood Culture - Preliminary Blood - Peripheral No growth in 3 days Anaerobic Blood Culture - Preliminary No growth in 3 days 11/19/18 18:14 Aerobic Blood Culture - Preliminary Blood - Peripheral No growth in 3 days Anaerobic Blood Culture - Preliminary No growth in 3 days 11/20/18 11:01 Gram Stain - Final Lumbar Puncture CSF Culture - Preliminary No growth in 48 hours Review/Management - Review/Management Plan: pseudotumor--improving. continue diamox.
--- NOTE | 2018-11-22 21:36 | P.PNIM ---
Subjective Interval history: Follow-up for warm antibody hemolytic anemia, pseudotumor cerebri. Patient is currently doing well. Her vision appears to be improving. H no fever or chills. Er headache has resolved. She underwent CT-guided bone marrow biopsy today. Physical Exam Vital signs: Vital Signs 11/22/18 00:00 11/22/18 04:07 11/22/18 07:48 Temperature 97.4 F L 97.6 F 97.7 F Pulse Rate 84 74 78 Respiratory Rate 18 18 18 Blood Pressure 120/62 128/60 115/56 L Pulse Oximetry 99 99 98 11/22/18 12:28 11/22/18 15:30 11/22/18 15:45 Temperature 97.9 F 98.2 F Pulse Rate 80 82 85 Respiratory Rate 16 18 18 Blood Pressure 118/58 L 116/64 124/60 Pulse Oximetry 100 95 98 11/22/18 16:14 11/22/18 16:27 11/22/18 16:57 Temperature 97.5 F L 97.7 F 97.7 F Pulse Rate 66 83 79 Respiratory Rate 18 16 16 Blood Pressure 120/57 L 116/61 119/58 L Pulse Oximetry 100 99 99 11/22/18 17:27 11/22/18 17:57 11/22/18 20:15 Temperature 97.5 F L 97.9 F 97.7 F Pulse Rate 80 84 71 Respiratory Rate 18 20 18 Blood Pressure 119/56 L 124/59 L 110/56 L Pulse Oximetry 98 99 99 Intake & Output 11/22/18 11/22/18 11/23/18 06:59 18:59 06:59 Intake Total 1000 / 1000 Balance 1000 / 1000 Intake: IV 1000 / 1000 NS Inj 1,000 ML @ 70 mls/hr IV. 1000 / 1000 CONT .[id number] [facility] Rx#:[id number] Other: # Voids 2 Date of Last Bowel Movement 11/20/18 11/22/18 Narrative: GENERAL: Well-nourished, well-developed patient. SKIN: Warm and dry. HEAD: Normocephalic. EYES: No scleral icterus. No injection or drainage. NECK: Supple, trachea midline. No JVD or lymphadenopathy. CARDIOVASCULAR: Regular rate and rhythm without murmurs, gallops, or rubs. RESPIRATORY: Breath sounds equal bilaterally. No accessory muscle use. GASTROINTESTINAL: Abdomen soft, non-tender, nondistended. MUSCULOSKELETAL: No cyanosis, or edema. BACK: Nontender without obvious deformity. No CVA tenderness. Results Labs CBC & Chem 7: 11/22/18 06:09 11/22/18 06:09 Labs: Microbiology 11/19/18 18:30 Blood - Peripheral Aerobic Blood Culture - Preliminary No growth in 3 days 11/19/18 18:30 Blood - Peripheral Anaerobic Blood Culture - Preliminary No growth in 3 days 11/19/18 18:14 Blood - Peripheral Aerobic Blood Culture - Preliminary No growth in 3 days 11/19/18 18:14 Blood - Peripheral Anaerobic Blood Culture - Preliminary No growth in 3 days 11/20/18 11:01 Lumbar Puncture Gram Stain - Final 11/20/18 11:01 Lumbar Puncture CSF Culture - Preliminary No growth in 48 hours Imaging Imaging: Impressions Bone Marrow Biopsy w/ CT 11/22/18 00:00 CONCLUSION: 1. Uncomplicated CT guided bone marrow aspirate. 2. Uncomplicated CT guided bone marrow biopsy. Assessment and Plan Plan Ms. Long is a pleasant 28 year old female with no significant medical history who was admitted to the hospital on 11/20/2018 on the advise of her risk adjustment specialist due to bilateral papilledema. Patient has been complaining of headache, blurred vision as well as neck stiffness for more than a week prior to this hospitalization. Pseudomotor cerebri -Patient's symptoms are consistent with pseudomotor cerebri. She had subside of her symptoms after LP. -Acetazolamide 500 mg p.o. twice daily -We will consider adding Lasix as well. -Meningitis is unlikely. Patient does not have any fever and her symptoms started more than 7 days ago Discontinued all antibiotics as well as dexamethasone. Warm antibody hemolytic anemia -unremarkable MRV of the brain, PNH unlikely -s/p blood transfusion. Continue prednisone 60 mg daily. -Bone marrow bx today 11/22/2018. Full code. Ambulation. Discussed with patient and her [id number] (RN). Progress Note: Quality VTE Deep Vein Thrombosis/Pulmonary Embolism Present on Admission: No
[2018-11-23] MEDS: Senna/Docusate Sodium 8.6/50 MG Tablet PO SCH ×3 (00:20→20:43)
[2018-11-23] MEDS: acetaZOLAMIDE 250 MG TABLET PO SCH ×3 (00:21→20:41)
[2018-11-23] MEDS: Sod Chloride 0.9% Inj 1,000 ML IV.CONT SCH ×3 (00:34→13:28)
[2018-11-23 07:07] LABS: Baso % (Auto) 0.2 % (0.0-2.0); Eos % (Auto) 0.1 % (0.0-4.0); Hematocrit 28.3 % (35.0-46.0); Hemoglobin 9.4 gm/dL (11.6-15.3); Lymph # (Auto) 3.5 th/mm3 (1.0-4.8); Mean Corpuscular HGB Conc 33.3 % (32.0-36.0); Mean Corpuscular Hemoglobin 32.5 pg (27.0-34.0); Mean Corpuscular Volume 97.6 fL (80.0-100.0); Mono # (Auto) 1.3 th/mm3 (0.0-0.9); Mono % (Auto) 8.1 % (0.0-8.0); Neut # (Auto) 10.6 th/mm3 (1.8-7.7); Neut % (Auto) 68.6 % (16.0-70.0); Platelet Count 341 th/mm3 (150-450); Red Cell Distribution Width 23.9 % (11.6-17.2); White Blood Count 15.4 th/mm3 (4.0-11.0)
[2018-11-23 08:32] LABS: Lymphocytes 19 % (9-44); Metamyelocytes 1 % (0-1); Monocytes 2 % (0-8); Myelocytes 2 % (0-0)
[2018-11-23 08:33] LABS: Spherocytes 2+
[2018-11-23 08:34] LABS: Platelet Estimate Normal (Normal); Platelet Morphology Normal (Normal); Polychromasia 4.2 % (0.0-1.9)
[2018-11-23] MEDS: predniSONE 20 MG Tablet PO SCH (08:43)
[2018-11-23] MEDS: clonazePAM 0.5 MG Tablet PO SCH ×2 (13:27→22:24)
--- NOTE | 2018-11-23 13:34 | P.PNIM ---
Subjective Interval history: Follow-up for warm antibody hemolytic anemia, pseudotumor cerebri. Patient is currently doing well. She reports slow improvement of her vision. No fever or chills. She feels somewhat anxious. Physical Exam Vital signs: Vital Signs 11/22/18 15:30 11/22/18 15:45 11/22/18 16:14 Temperature 98.2 F 97.5 F L Pulse Rate 82 85 66 Respiratory Rate 18 18 18 Blood Pressure 116/64 124/60 120/57 L Pulse Oximetry 95 98 100 11/22/18 16:27 11/22/18 16:57 11/22/18 17:27 Temperature 97.7 F 97.7 F 97.5 F L Pulse Rate 83 79 80 Respiratory Rate 16 16 18 Blood Pressure 116/61 119/58 L 119/56 L Pulse Oximetry 99 99 98 11/22/18 17:57 11/22/18 20:15 11/22/18 22:35 Temperature 97.9 F 97.7 F 98.3 F Pulse Rate 84 71 81 Respiratory Rate 20 18 18 Blood Pressure 124/59 L 110/56 L 122/58 L Pulse Oximetry 99 99 100 11/23/18 04:00 11/23/18 08:30 11/23/18 12:00 Temperature 98.6 F 97.9 F 98.1 F Pulse Rate 71 87 100 H Respiratory Rate 18 20 20 Blood Pressure 112/58 L 113/59 L 127/64 Pulse Oximetry 99 98 98 Intake & Output 11/22/18 11/23/18 11/23/18 18:59 06:59 18:59 Intake Total 1240 / 1240 Balance 1240 / 1240 Intake: IV 1000 / 1000 NS Inj 1,000 ML @ 70 mls/hr IV. 1000 / 1000 CONT .[id number] [facility] Rx#:[id number] Oral 240 / 240 Other: Date of Last Bowel Movement 11/22/18 Narrative: GENERAL: Well-nourished, well-developed patient. SKIN: Warm and dry. HEAD: Normocephalic. EYES: No scleral icterus. No injection or drainage. NECK: Supple, trachea midline. No JVD or lymphadenopathy. CARDIOVASCULAR: Regular rate and rhythm without murmurs, gallops, or rubs. RESPIRATORY: Breath sounds equal bilaterally. No accessory muscle use. GASTROINTESTINAL: Abdomen soft, non-tender, nondistended. MUSCULOSKELETAL: No cyanosis, or edema. BACK: Nontender without obvious deformity. No CVA tenderness. Results Labs CBC & Chem 7: 11/23/18 06:20 11/22/18 06:09 Labs: Microbiology 11/19/18 18:30 Blood - Peripheral Aerobic Blood Culture - Preliminary No growth in 4 days 11/19/18 18:30 Blood - Peripheral Anaerobic Blood Culture - Preliminary No growth in 4 days 11/19/18 18:14 Blood - Peripheral Aerobic Blood Culture - Preliminary No growth in 4 days 11/19/18 18:14 Blood - Peripheral Anaerobic Blood Culture - Preliminary No growth in 4 days 11/20/18 11:01 Lumbar Puncture Gram Stain - Final 11/20/18 11:01 Lumbar Puncture CSF Culture - Final No growth in 72 hours Imaging Imaging: Impressions Bone Marrow Biopsy w/ CT 11/22/18 00:00 CONCLUSION: 1. Uncomplicated CT guided bone marrow aspirate. 2. Uncomplicated CT guided bone marrow biopsy. Assessment and Plan Plan Ms. Long is a pleasant 28 year old female with no significant medical history who was admitted to the hospital on 11/20/2018 on the advise of her veterinary medicine teacher due to bilateral papilledema. Patient has been complaining of headache, blurred vision as well as neck stiffness for more than a week prior to this hospitalization. Pseudomotor cerebri -Patient's symptoms are consistent with pseudomotor cerebri. She had subside of her symptoms after LP. -Acetazolamide 500 mg p.o. twice daily -We will add torsemide 10 mg twice daily. -Meningitis is unlikely. Patient does not have any fever and her symptoms started more than 7 days ago Discontinued all antibiotics as well as dexamethasone. Warm antibody hemolytic anemia -unremarkable MRV of the brain, PNH unlikely -s/p blood transfusion. Continue prednisone 60 mg daily. -Bone marrow bx today 11/22/2018. Full code. Ambulation. Discussed with patient's . Progress Note: Quality VTE Deep Vein Thrombosis/Pulmonary Embolism Present on Admission: No
--- NOTE | 2018-11-23 16:14 | P.PNONC ---
Subjective Interval history: Patient sitting up in room, visiting with family. She reports a slight left-sided headache earlier in the day when she became anxious that her mother was leaving. She warrants no other complaints at this time. Objective Vital Signs/Intake & Output: Vital Signs 11/22/18 16:14 11/22/18 16:27 11/22/18 16:57 Temperature 97.5 F L 97.7 F 97.7 F Pulse Rate 66 83 79 Respiratory Rate 18 16 16 Blood Pressure 120/57 L 116/61 119/58 L Pulse Oximetry 100 99 99 11/22/18 17:27 11/22/18 17:57 11/22/18 20:15 Temperature 97.5 F L 97.9 F 97.7 F Pulse Rate 80 84 71 Respiratory Rate 18 20 18 Blood Pressure 119/56 L 124/59 L 110/56 L Pulse Oximetry 98 99 99 11/22/18 22:35 11/23/18 04:00 11/23/18 08:30 Temperature 98.3 F 98.6 F 97.9 F Pulse Rate 81 71 87 Respiratory Rate 18 18 20 Blood Pressure 122/58 L 112/58 L 113/59 L Pulse Oximetry 100 99 98 11/23/18 12:00 Temperature 98.1 F Pulse Rate 100 H Respiratory Rate 20 Blood Pressure 127/64 Pulse Oximetry 98 Intake & Output 11/22/18 11/23/18 11/23/18 18:59 06:59 18:59 Intake Total 1240 / 1240 Balance 1240 / 1240 Intake: IV 1000 / 1000 NS Inj 1,000 ML @ 70 mls/hr IV. 1000 / 1000 CONT [id number] Rx#:[id number] Oral 240 / 240 Other: Date of Last Bowel Movement 11/22/18 Result Diagrams: 11/23/18 06:20 11/22/18 06:09 Laboratory Results: Laboratory Results - last 24 hr 11/20/18 11/23/18 16:24 06:20 WBC 15.4 H RBC 2.90 L Hgb 9.4 L Hct 28.3 L MCV 97.6 MCH 32.5 MCHC 33.3 RDW 23.9 H Plt Count 341 MPV 8.0 Prelim Diff (Auto) Slide review pending Neut % (Auto) 68.6 Lymph % (Auto) 23.0 Sutter % (Auto) 8.1 H Eos % (Auto) 0.1 Baso % (Auto) 0.2 Neut # (Auto) 10.6 H Lymph # (Auto) 3.5 Sutter # (Auto) 1.3 H Eos # (Auto) 0.0 Baso # (Auto) 0.0 WBC Differential Manual diff final Seg Neuts % (Manual) 76 H Lymphocytes % (Manual) 19 Monocytes % (Manual) 2 Metamyelocytes % (Man) 1 Myelocytes % (Man) 2 H Abs Neuts (Manual) 12.2 H Differential Comment . Platelet Estimate Normal Platelet Morphology Normal Polychromasia 4.2 H Spherocytes 2+ H Immunophenotypic Anal Culture Results: Microbiology 11/19/18 18:30 Aerobic Blood Culture - Preliminary Blood - Peripheral No growth in 4 days Anaerobic Blood Culture - Preliminary No growth in 4 days 11/19/18 18:14 Aerobic Blood Culture - Preliminary Blood - Peripheral No growth in 4 days Anaerobic Blood Culture - Preliminary No growth in 4 days 11/20/18 11:01 Gram Stain - Final Lumbar Puncture CSF Culture - Final No growth in 72 hours Imaging Studies: Impressions Bone Marrow Biopsy w/ CT 11/22/18 00:00 CONCLUSION: 1. Uncomplicated CT guided bone marrow aspirate. 2. Uncomplicated CT guided bone marrow biopsy. Medications: Active Medications Generic Name Dose Route Start Last Admin Trade Name Freq PRN Reason Stop Dose Admin Acetazolamide 500 mg 11/21/18 16:00 11/23/18 08:44 Diamox PO 500 mg Q12HR DANILO Administration Clonazepam 0.5 mg 11/23/18 14:00 11/23/18 13:27 Klonopin PO Not Given Q8HR DANILO Sodium Chloride 1,000 mls @ 70 mls/hr 11/20/18 00:15 11/23/18 13:28 Ns Inj IV.CONT Not Given .[id number] DANILO Prednisone 60 mg 11/22/18 09:00 11/23/18 08:43 Deltasone PO 60 mg DAILY DANILO Administration Senna/Docusate Sodium 1 tab 11/20/18 09:00 11/23/18 08:44 Bridgett-Colace PO Not Given BID DANILO Sodium Chloride 2 ml 11/19/18 17:54 11/20/18 23:03 Ns Flush IV.FLUSH 2 ml PRN PRN Administration FLUSH AFTER USING IV ACCESS Sodium Chloride 2 ml 11/20/18 09:00 11/23/18 08:44 Ns Flush IV.FLUSH 2 ml BID DANILO Administration Sodium Chloride 2 ml 11/20/18 00:04 11/21/18 05:11 Ns Flush IV.FLUSH 2 ml PRN PRN Administration FLUSH AFTER USING IV ACCESS Objective Remarks: GENERAL: Well-nourished, well-developed female patient. SKIN: Pale, warm and dry. HEAD: Normocephalic. EYES: No scleral icterus. No injection or drainage. NECK: Supple, trachea midline. CARDIOVASCULAR: Regular rate and rhythm without murmurs. RESPIRATORY: Posterior breath sounds clear, equal bilaterally. No accessory muscle use. GASTROINTESTINAL: Abdomen soft, non-tender, nondistended. EXTREMITIES: No cyanosis, or edema. MUSCULOSKELETAL: Adequate muscle tone. NEUROLOGICAL: No obvious focal deficit. Awake, alert, and oriented x3. Equal strength bilaterally PSYCHIATRIC: Appropriate mood and affect; insight and judgment normal. Assessment/Plan - Plan This is a pleasant 28-year-old female admitted to the hospital with a severe anemia and papilledema noted by flotation tank operator. Hematology has been consulted in relation to the severe anemia. Plan: 1. Warm antibody hemolytic anemia, etiology unclear. She received 2 units of packed red blood cells and hemoglobin trended up to 10.1, slight decrease today to 9.6 g/dL. Status post bone marrow biopsy to look for occult lymphoproliferative disorder. Results remain pending at this time. 2. Pseudotumor cerebri. MR venogram did not show any thrombosis. Management per neurology. Her headache and vision changes have improved. 3. Leukocytosis, decreasing. Continues on steroids. 4. Continue to monitor hemoglobin, repeat CBC in the a.m. - Attending Statement The exam, history, and the medical decision-making described in the above note were completed with the assistance of the mid-level provider. I reviewed and agree with the findings presented. I attest that I had a [id number] encounter with the patient on the same day, and personally performed and documented my assessment and findings in the medical record. Patient is complaining of slight discomfort at the bone marrow biopsy site. I removed the bandage. No signs of bruising, hematoma or infection Headache and vision problems both are improving Bone marrow biopsy results still pending asked me whether he should give her multivitamins from [facility]. I advised him that she should not be taking any [id number] medication at this time. She has warm autoimmune hemolytic anemia. She is on steroid Patient have asked several questions. These were answered to best of my ability. We discussed that her autoimmune hemolytic anemia could be from lymphoproliferative disorder or could be idiopathic. Avoid all nonprescription medications as the etiology of autoimmune hemolytic anemia is not establishes as yet. Continue to monitor the CBC
[2018-11-24] MEDS: Sod Chloride 0.9% Inj 1,000 ML IV.CONT SCH ×2 (04:05→18:25)
[2018-11-24] MEDS: clonazePAM 0.5 MG Tablet PO SCH ×3 (06:17→21:31)
[2018-11-24 07:03] LABS: Baso % (Auto) 0.3 % (0.0-2.0); Eos % (Auto) 0.2 % (0.0-4.0); Hematocrit 29.3 % (35.0-46.0); Hemoglobin 10.1 gm/dL (11.6-15.3); Lymph # (Auto) 4.2 th/mm3 (1.0-4.8); Lymph % (Auto) 25.3 % (9.0-44.0); Mean Corpuscular HGB Conc 34.6 % (32.0-36.0); Mean Corpuscular Hemoglobin 32.8 pg (27.0-34.0); Mean Corpuscular Volume 94.8 fL (80.0-100.0); Mean Platelet Volume 8.3 fL (7.0-11.0); Mono # (Auto) 1.1 th/mm3 (0.0-0.9); Mono % (Auto) 6.8 % (0.0-8.0); Neut # (Auto) 11.3 th/mm3 (1.8-7.7); Neut % (Auto) 67.4 % (16.0-70.0); Platelet Count 375 th/mm3 (150-450); Red Blood Count 3.09 mil/mm3 (4.00-5.30); Red Cell Distribution Width 23.1 % (11.6-17.2); White Blood Count 16.7 th/mm3 (4.0-11.0)
[2018-11-24] MEDS: acetaZOLAMIDE 250 MG TABLET PO SCH ×2 (08:37→21:30)
[2018-11-24] MEDS: predniSONE 20 MG Tablet PO SCH (08:37)
[2018-11-24] MEDS: Senna/Docusate Sodium 8.6/50 MG Tablet PO SCH ×3 (08:40→21:32)
--- NOTE | 2018-11-24 08:48 | P.PNONC ---
Subjective Interval history: Afebrile. Patient lying in bed, talking on cell phone. She denies any headaches today. She states her vision has improved, however she occasionally a few spots. She wants no other complaints at this time. Objective Vital Signs/Intake & Output: Vital Signs 11/23/18 12:00 11/23/18 16:00 11/23/18 20:20 Temperature 98.1 F 98.8 F 97.3 F L Pulse Rate 100 H 79 93 H Respiratory Rate 20 18 17 Blood Pressure 127/64 106/62 118/79 Pulse Oximetry 98 100 100 11/24/18 00:10 11/24/18 05:00 11/24/18 08:00 Temperature 97.8 F 97.9 F 98.1 F Pulse Rate 87 96 H 91 H Respiratory Rate 19 16 Blood Pressure 126/67 117/63 103/57 L Pulse Oximetry 98 99 100 Intake & Output 11/23/18 11/24/18 11/24/18 18:59 06:59 18:59 Intake Total 2800 / 2800 Balance 2800 / 2800 Intake: IV 300 / 300 NS Inj 1,000 ML @ 70 mls/hr IV. 300 / 300 CONT .[id number] [facility] Rx#:[id number] Oral 2500 / 2500 Other: # Voids 4 4 Date of Last Bowel Movement 11/23/18 # Bowel Movements 1 1 Result Diagrams: 11/24/18 05:59 11/22/18 06:09 Laboratory Results: Laboratory Results - last 24 hr 11/22/18 11/24/18 Unknown 05:59 WBC 16.7 H RBC 3.09 L Hgb 10.1 L Hct 29.3 L MCV 94.8 MCH 32.8 MCHC 34.6 RDW 23.1 H Plt Count 375 MPV 8.3 Neut % (Auto) 67.4 Lymph % (Auto) 25.3 Gordon % (Auto) 6.8 Eos % (Auto) 0.2 Baso % (Auto) 0.3 Neut # (Auto) 11.3 H Lymph # (Auto) 4.2 Gordon # (Auto) 1.1 H Eos # (Auto) 0.0 Baso # (Auto) 0.0 WBC Differential . Differential Comment Auto diff final Marrow Immunophenotype Culture Results: Microbiology 11/19/18 18:30 Aerobic Blood Culture - Preliminary Blood - Peripheral No growth in 4 days Anaerobic Blood Culture - Preliminary No growth in 4 days 11/19/18 18:14 Aerobic Blood Culture - Preliminary Blood - Peripheral No growth in 4 days Anaerobic Blood Culture - Preliminary No growth in 4 days 11/20/18 11:01 Gram Stain - Final Lumbar Puncture CSF Culture - Final No growth in 72 hours Medications: Active Medications Generic Name Dose Route Start Last Admin Trade Name Freq PRN Reason Stop Dose Admin Acetazolamide 500 mg 11/21/18 16:00 11/24/18 08:37 Diamox PO 500 mg Q12HR DANILO Administration Clonazepam 0.5 mg 11/23/18 14:00 11/24/18 06:17 Klonopin PO Not Given Q8HR DANILO Sodium Chloride 1,000 mls @ 70 mls/hr 11/20/18 00:15 11/24/18 04:05 Ns Inj IV.CONT Not Given .[id number] DANILO Prednisone 60 mg 11/22/18 09:00 11/24/18 08:37 Deltasone PO 60 mg DAILY DANILO Administration Senna/Docusate Sodium 1 tab 11/20/18 09:00 11/24/18 08:40 Bridgett-Colace PO Not Given BID DANILO Sodium Chloride 2 ml 11/19/18 17:54 11/20/18 23:03 Ns Flush IV.FLUSH 2 ml PRN PRN Administration FLUSH AFTER USING IV ACCESS Sodium Chloride 2 ml 11/20/18 09:00 11/24/18 08:38 Ns Flush IV.FLUSH 2 ml BID DANILO Administration Sodium Chloride 2 ml 11/20/18 00:04 11/21/18 05:11 Ns Flush IV.FLUSH 2 ml PRN PRN Administration FLUSH AFTER USING IV ACCESS Torsemide 10 mg 11/23/18 18:00 11/24/18 08:36 Demadex PO 10 mg BID@0900,1800 DANILO Administration Objective Remarks: GENERAL: Well-nourished, well-developed female patient, resting comfortably in bed. SKIN: Warm and dry. HEAD: Normocephalic. EYES: No scleral icterus. No injection or drainage. PERRLA. NECK: Supple, trachea midline. CARDIOVASCULAR: +S1/S2 without murmurs. RESPIRATORY: Anterior breath sounds clear, equal bilaterally. Nonlabored at rest. GASTROINTESTINAL: Abdomen soft, non-tender, nondistended. EXTREMITIES: No cyanosis, or edema. MUSCULOSKELETAL: Adequate muscle tone. NEUROLOGICAL: No obvious focal deficit. Awake, alert, and oriented x3. Equal strength bilaterally PSYCHIATRIC: Appropriate mood and affect; insight and judgment normal. Assessment/Plan - Plan This is a pleasant 28-year-old female admitted to the hospital with a severe anemia and papilledema noted by receiving associate. Hematology has been consulted in relation to the severe anemia. Plan: 1. Warm antibody hemolytic anemia, etiology unclear. She received 2 units of packed red blood cells this hospitalization. Status post bone marrow biopsy to look for occult lymphoproliferative disorder. Bone marrow pending. Hemoglobin has improved to 10.1 g/dL. 2. Pseudotumor cerebri. MR venogram did not show any thrombosis. Management per neurology. Her headache and vision changes have improved. Continues to have intermittent spots in her vision. 3. Leukocytosis, continues to decrease. Continues on steroids. 4. Continue to monitor CBC. Await bone marrow results. - Attending Statement The exam, history, and the medical decision-making described in the above note were completed with the assistance of the mid-level provider. I reviewed and agree with the findings presented. I attest that I had a [id number] encounter with the patient on the same day, and personally performed and documented my assessment and findings in the medical record. Patient did not offer any complaint except that she is feeling bored. Flow cytometry report reviewed. There is no evidence of lymphoproliferative disorder. There is suspect that patient may have myeloid neoplasm. I did not shared this information with the patient as yet until the final bone marrow biopsy results available. 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 We will order further tests such as Sherwin 2 mutation or BCR ABL once we get the final pathology report. Continue to monitor CBC
--- NOTE | 2018-11-24 13:46 | P.PNIM ---
Subjective Interval history: Patient is sitting down in her room with her friends at bedside. No complaints of headache, no neck stiffness, blurred vision has improved. Physical Exam Vital signs: Vital Signs 11/23/18 16:00 11/23/18 20:20 11/24/18 00:10 Temperature 98.8 F 97.3 F L 97.8 F Pulse Rate 79 93 H 87 Respiratory Rate 18 17 20 Blood Pressure 106/62 118/79 126/67 Pulse Oximetry 100 100 98 11/24/18 05:00 11/24/18 08:00 11/24/18 12:00 Temperature 97.9 F 98.1 F 98.2 F Pulse Rate 96 H 91 H 114 H Respiratory Rate 19 16 18 Blood Pressure 117/63 103/57 L 115/66 Pulse Oximetry 99 100 98 Intake & Output 11/23/18 11/24/18 11/24/18 18:59 06:59 18:59 Intake Total 2800 / 2800 Balance 2800 / 2800 Intake: IV 300 / 300 NS Inj 1,000 ML @ 70 mls/hr IV. 300 / 300 CONT .[id number] [facility] Rx#:[id number] Oral 2500 / 2500 Other: # Voids 4 4 Date of Last Bowel Movement 11/23/18 # Bowel Movements 1 1 Narrative: General patient in no acute distress HEENT extraocular movements are intact, clear oropharyngeal mucosa, no JVD Cardiovascular S1-S2 audible, RRR, no murmurs rubs or gallops Respiratory clear to auscultation bilaterally Abdomen soft, nontender, nondistended, normal bowel sounds Extremities no edema 2+ distal pulses in bilateral upper and lower extremities Neuro no focal neurological deficits. Results Labs CBC & Chem 7: 11/24/18 05:59 11/22/18 06:09 Labs: Microbiology 11/19/18 18:30 Blood - Peripheral Aerobic Blood Culture - Final No growth in 5 days 11/19/18 18:30 Blood - Peripheral Anaerobic Blood Culture - Final No growth in 5 days 11/19/18 18:14 Blood - Peripheral Aerobic Blood Culture - Final No growth in 5 days 11/19/18 18:14 Blood - Peripheral Anaerobic Blood Culture - Final No growth in 5 days 11/20/18 11:01 Lumbar Puncture Gram Stain - Final 11/20/18 11:01 Lumbar Puncture CSF Culture - Final No growth in 72 hours Assessment and Plan Plan This patient is a 28-year-old female with no known past medical history who was admitted to the hospital on 11/20/2018 on the advice of her oracle applications analyst due to bilateral papilledema. Patient has also been complaining of headaches, blurred vision, and neck stiffness for more than a week prior to admission. 1. Pseudotumor cerebri The patient's symptoms and physical examination findings were consistent with pseudotumor cerebri. Lumbar puncture was done, symptoms improved subsequently. Continue acetozolamide, torsemide. Meningitis unlikely, patient afebrile. IV antibiotics and steroids have been stopped. 2. Warm antibody hemolytic anemia. MRV of the brain negative. Status post blood transfusion. Continue p.o. steroids Bone marrow biopsy results are pending. I discussed the case with the CLOUD ENGAGEMENT PARTNER from Hem/Onc today and we will wait for Dr. Winston to round on the patient for their today. If patient is cleared by Hematology we can possibly discharge the patient and arrange for outpatient follow up since her symptoms are improving. Patient is ambulatory, no pharmacotherapy for dvt prophylaxis. Progress Note: Quality VTE Deep Vein Thrombosis/Pulmonary Embolism Present on Admission: No
[2018-11-25] MEDS: clonazePAM 0.5 MG Tablet PO SCH ×3 (05:40→21:37)
[2018-11-25 08:31] LABS: Methylmalonic Acid 0.2 nmol/mL (<=0.40)
[2018-11-25 08:43] LABS: Baso # (Auto) 0.1 th/mm3 (0.0-0.2); Baso % (Auto) 0.5 % (0.0-2.0); Eos % (Auto) 0.2 % (0.0-4.0); Hematocrit 27.2 % (35.0-46.0); Hemoglobin 9.4 gm/dL (11.6-15.3); Lymph # (Auto) 3.8 th/mm3 (1.0-4.8); Mean Corpuscular HGB Conc 34.6 % (32.0-36.0); Mean Corpuscular Volume 92.6 fL (80.0-100.0); Mean Platelet Volume 7.9 fL (7.0-11.0); Mono # (Auto) 1.4 th/mm3 (0.0-0.9); Mono % (Auto) 7.2 % (0.0-8.0); Neut # (Auto) 13.8 th/mm3 (1.8-7.7); Neut % (Auto) 72.1 % (16.0-70.0); Platelet Count 397 th/mm3 (150-450); Red Blood Count 2.94 mil/mm3 (4.00-5.30); Red Cell Distribution Width 21.9 % (11.6-17.2); White Blood Count 19.1 th/mm3 (4.0-11.0)
[2018-11-25] MEDS: predniSONE 20 MG Tablet PO SCH (08:52)
[2018-11-25] MEDS: acetaZOLAMIDE 250 MG TABLET PO SCH ×2 (08:52→21:36)
[2018-11-25] MEDS: Sod Chloride 0.9% Inj 1,000 ML IV.CONT SCH ×2 (08:55→23:30)
[2018-11-25] MEDS: Senna/Docusate Sodium 8.6/50 MG Tablet PO SCH ×2 (09:00→21:38)
[2018-11-25 09:13] LABS: Alanine Aminotransferase 25 U/L (10-53); Albumin 4.2 g/dL (3.4-5.0); Anion Gap 11 meq/L (5-15); Aspartate Aminotransferase 27 U/L (15-37); Blood Urea Nitrogen 17 mg/dL (7-18); Calcium 8.9 mg/dL (8.5-10.1); Carbon Dioxide 21.4 meq/L (21.0-32.0); Chloride 106 meq/L (98-107); Glomerular Filtration Rate 82 mL/min (>89); Glucose,Random 82 mg/dL (74-106); Sodium 138 meq/L (136-145)
[2018-11-25 09:15] LABS: Alkaline Phosphatase 91 U/L (45-117); Lactate Dehydrogenase 789 U/L (84-246)
[2018-11-25 09:16] LABS: Lymphocytes 16 % (9-44); Metamyelocytes 1 % (0-1); Monocytes 8 % (0-8); Myelocytes 1 % (0-0)
[2018-11-25 09:17] LABS: Polychromasia 4.2 % (0.0-1.9)
[2018-11-25 09:18] LABS: Dimorphic RBC Present; Pappenheimer Bodies Present; Platelet Estimate Normal (Normal); Platelet Morphology Normal (Normal); Spherocytes 2+
[2018-11-25 09:30] LABS: Potassium 2.8 meq/L (3.5-5.1)
--- NOTE | 2018-11-25 10:19 | P.PNIM ---
Subjective Interval history: No complaints from the patient this morning. She says that she feels good today. No headache or blurry vision. Physical Exam Vital signs: Vital Signs 11/24/18 12:00 11/24/18 16:00 11/24/18 20:45 Temperature 98.2 F 97.9 F 97.8 F Pulse Rate 114 H 103 H 99 H Respiratory Rate 19 Blood Pressure 115/66 123/78 107/57 L Pulse Oximetry 98 98 98 11/25/18 00:40 11/25/18 05:20 11/25/18 07:20 Temperature 97.7 F 98.5 F 97.8 F Pulse Rate 94 H 92 H 100 H Respiratory Rate 20 Blood Pressure 126/71 108/59 L 119/65 Pulse Oximetry 99 99 99 Intake & Output 11/24/18 11/25/18 11/25/18 18:59 06:59 18:59 Intake Total 1500 / 1500 500 / 500 Balance 1500 / 1500 500 / 500 Intake: Oral 1500 / 1500 500 / 500 Other: # Voids 1 Date of Last Bowel Movement 11/24/18 # Bowel Movements 1 Narrative: General patient in no acute distress HEENT extraocular movements are intact, clear oropharyngeal mucosa, no JVD Cardiovascular S1-S2 audible, RRR, no murmurs rubs or gallops Respiratory clear to auscultation bilaterally Abdomen soft, nontender, nondistended, normal bowel sounds Extremities no edema 2+ distal pulses in bilateral upper and lower extremities Neuro no focal neurological deficits. Results Labs CBC & Chem 7: 11/25/18 08:26 11/25/18 08:26 Labs: Microbiology 11/19/18 18:30 Blood - Peripheral Aerobic Blood Culture - Final No growth in 5 days 11/19/18 18:30 Blood - Peripheral Anaerobic Blood Culture - Final No growth in 5 days 11/19/18 18:14 Blood - Peripheral Aerobic Blood Culture - Final No growth in 5 days 11/19/18 18:14 Blood - Peripheral Anaerobic Blood Culture - Final No growth in 5 days Assessment and Plan Plan This patient is a 28-year-old female with no known past medical history who was admitted to the hospital on 11/20/2018 on the advice of her software systems engineer due to bilateral papilledema. Patient has also been complaining of headaches, blurred vision, and neck stiffness for more than a week prior to admission. 1. Pseudotumor cerebri The patient's symptoms and physical examination findings were consistent with pseudotumor cerebri. Lumbar puncture was done, symptoms improved subsequently. Continue acetozolamide, torsemide. Meningitis unlikely, patient afebrile. CSF studies not consistent with meningitis. IV antibiotics and steroids have been stopped. 2. Warm antibody hemolytic anemia. MRV of the brain negative. Status post blood transfusion. Continue p.o. steroids Bone marrow biopsy results are pending. Dr. Wood evaluated the patient this morning. I discussed the case with his DECORATING AND ASSEMBLY SUPERVISOR today and I will follow up with them later today regarding her discharge plan. Continue steroids. Hgb 9.4 today. LDH elevated, indirect bili elevated. Patient is ambulatory, no pharmacotherapy for dvt prophylaxis. D/C planning: possible discharge later today, awaiting clearance from Hematology. Progress Note: Quality VTE Deep Vein Thrombosis/Pulmonary Embolism Present on Admission: No
--- NOTE | 2018-11-25 12:38 | P.PNONC ---
Subjective Interval history: Afebrile. Patient denies any vision changes. Denies headache. She is sitting at bedside putting together a puzzle. She asked if she will be able to be discharged soon and follow-up on an outpatient. She has been given Dr. Wood's contact information, and her information has been sent to new patient referrals. She confirms that she has been taking the prednisone. Awaiting final bone marrow biopsy results. Objective Vital Signs/Intake & Output: Vital Signs 11/24/18 16:00 11/24/18 20:45 11/25/18 00:40 Temperature 97.9 F 97.8 F 97.7 F Pulse Rate 103 H 99 H 94 H Respiratory Rate 16 19 18 Blood Pressure 123/78 107/57 L 126/71 Pulse Oximetry 98 98 99 11/25/18 05:20 11/25/18 07:20 11/25/18 08:00 Temperature 98.5 F 97.8 F Pulse Rate 92 H 100 H Respiratory Rate 18 20 16 Blood Pressure 108/59 L 119/65 Pulse Oximetry 99 99 Intake & Output 11/24/18 11/25/18 11/25/18 18:59 06:59 18:59 Intake Total 1500 / 1500 500 / 500 Balance 1500 / 1500 500 / 500 Intake: Oral 1500 / 1500 500 / 500 Other: # Voids 1 Date of Last Bowel Movement 11/24/18 11/24/18 # Bowel Movements 1 Result Diagrams: 11/25/18 08:26 11/25/18 08:26 Laboratory Results: Laboratory Results - last 24 hr 11/20/18 11/25/18 11/25/18 16:24 08:26 08:26 WBC 19.1 H RBC 2.94 L Hgb 9.4 L Hct 27.2 L MCV 92.6 MCH 32.0 MCHC 34.6 RDW 21.9 H Plt Count 397 MPV 7.9 Prelim Diff (Auto) Slide review pending Neut % (Auto) 72.1 H Lymph % (Auto) 20.0 Hardin % (Auto) 7.2 Eos % (Auto) 0.2 Baso % (Auto) 0.5 Neut # (Auto) 13.8 H Lymph # (Auto) 3.8 Hardin # (Auto) 1.4 H Eos # (Auto) 0.0 Baso # (Auto) 0.1 WBC Differential Manual diff final Seg Neuts % (Manual) 74 H Lymphocytes % (Manual) 16 Monocytes % (Manual) 8 Metamyelocytes % (Man) 1 Myelocytes % (Man) 1 H Abs Neuts (Manual) 14.5 H Differential Comment . Platelet Estimate Normal Platelet Morphology Normal Dimorphic RBCs Present H Polychromasia 4.2 H Spherocytes 2+ H Pappenheimer Bodies Present H Sodium Potassium Chloride Carbon Dioxide Anion Gap BUN Creatinine Estimated GFR Random Glucose Calcium Total Bilirubin Direct Bilirubin Indirect Bilirubin AST ALT Alkaline Phosphatase Lactate Dehydrogenase Total Protein Albumin Methylmalonic Acid 0.20 BCR/abl (FISH) Interp Cancelled 11/25/18 08:26 WBC RBC Hgb Hct MCV MCH MCHC RDW Plt Count MPV Prelim Diff (Auto) Neut % (Auto) Lymph % (Auto) Hardin % (Auto) Eos % (Auto) Baso % (Auto) Neut # (Auto) Lymph # (Auto) Hardin # (Auto) Eos # (Auto) Baso # (Auto) WBC Differential Seg Neuts % (Manual) Lymphocytes % (Manual) Monocytes % (Manual) Metamyelocytes % (Man) Myelocytes % (Man) Abs Neuts (Manual) Differential Comment Platelet Estimate Platelet Morphology Dimorphic RBCs Polychromasia Spherocytes Pappenheimer Bodies Sodium 138 Potassium 2.8 L* Chloride 106 Carbon Dioxide 21.4 Anion Gap 11 BUN 17 Creatinine 0.83 Estimated GFR 82 L Random Glucose 82 Calcium 8.9 Total Bilirubin 2.9 H Direct Bilirubin 0.6 H Indirect Bilirubin 2.3 H AST 27 ALT 25 Alkaline Phosphatase 91 Lactate Dehydrogenase 789 H Total Protein 8.0 Albumin 4.2 Methylmalonic Acid BCR/abl (FISH) Interp Culture Results: Microbiology 11/19/18 18:30 Aerobic Blood Culture - Final Blood - Peripheral No growth in 5 days Anaerobic Blood Culture - Final No growth in 5 days 11/19/18 18:14 Aerobic Blood Culture - Final Blood - Peripheral No growth in 5 days Anaerobic Blood Culture - Final No growth in 5 days 11/20/18 11:01 Gram Stain - Final Lumbar Puncture CSF Culture - Final No growth in 72 hours Medications: Active Medications Generic Name Dose Route Start Last Admin Trade Name Freq PRN Reason Stop Dose Admin Acetazolamide 500 mg 11/21/18 16:00 11/25/18 08:52 Diamox PO 500 mg Q12HR DANILO Administration Clonazepam 0.5 mg 11/23/18 14:00 11/25/18 05:40 Klonopin PO Not Given Q8HR DANILO Sodium Chloride 1,000 mls @ 70 mls/hr 11/20/18 00:15 11/24/18 18:25 Ns Inj IV.CONT Not Given .[id number] DANILO Prednisone 60 mg 11/22/18 09:00 11/25/18 08:52 Deltasone PO 60 mg DAILY DANILO Administration Senna/Docusate Sodium 1 tab 11/20/18 09:00 11/24/18 21:32 Bridgett-Colace PO Not Given BID DANILO Sodium Chloride 2 ml 11/19/18 17:54 11/20/18 23:03 Ns Flush IV.FLUSH 2 ml PRN PRN Administration FLUSH AFTER USING IV ACCESS Sodium Chloride 2 ml 11/20/18 09:00 11/24/18 21:30 Ns Flush IV.FLUSH 2 ml BID DANILO Administration Sodium Chloride 2 ml 11/20/18 00:04 11/21/18 05:11 Ns Flush IV.FLUSH 2 ml PRN PRN Administration FLUSH AFTER USING IV ACCESS Torsemide 10 mg 11/23/18 18:00 11/25/18 08:52 Demadex PO 10 mg BID@0900,1800 DANILO Administration Objective Remarks: GENERAL: Well-nourished, well-developed female patient, in no acute distress peer SKIN: Warm and dry. HEAD: Normocephalic. EYES: No scleral icterus. No injection or drainage. NECK: Supple, trachea midline. CARDIOVASCULAR: +S1/S2 without murmurs. RESPIRATORY: Posterior breath sounds clear, equal bilaterally. Nonlabored at rest. GASTROINTESTINAL: Abdomen soft, non-tender, nondistended. EXTREMITIES: No cyanosis, or edema. MUSCULOSKELETAL: Adequate muscle tone. NEUROLOGICAL: No obvious focal deficit. Awake, alert, and oriented x3. PSYCHIATRIC: Appropriate mood and affect; insight and judgment normal. Assessment/Plan - Plan This is a pleasant 28-year-old female admitted to the hospital with a severe anemia and papilledema noted by claims counsel. Hematology has been consulted in relation to the severe anemia. Plan: 1. Warm antibody hemolytic anemia, etiology unclear. Hemoglobin 9.4 g/dL today. FISH, BCR, ABL and Sherwin 2 pending. LDH is down trending at 789, LFTs normal. Bilirubin 2.9. 2. Pseudotumor cerebri. MR venogram did not show any thrombosis. Management per neurology. She denies any vision changes or headaches today. 3. Leukocytosis, her white count has increased to 19.1. She continues on prednisone 40 mg daily. 4. Hypokalemia, management per attending. 5. Once cleared for discharge the patient will follow up in the outpatient setting with Dr. Wood. Her information has been sent to new patient referrals and she has been given his contact information. - Attending Statement The exam, history, and the medical decision-making described in the above note were completed with the assistance of the mid-level provider. I reviewed and agree with the findings presented. I attest that I had a [id number] encounter with the patient on the same day, and personally performed and documented my assessment and findings in the medical record. Patient is feeling better. Headache has resolved. Visual changes improving. Hgb trended down slightly. Continue prednisone 60mg daily. Monitor CBC. BM final path pending. Flow showed possible MDS/CMPD changes. Will check Jak2 and Bcr/Abl. Can be d/c if Hgb is stable.
[2018-11-25 21:17] VITALS: RESP 20
[2018-11-26 04:45] VITALS: O2SAT 100
[2018-11-26 07:58] LABS: Free T4 (Free Thyroxine) 1.05 ng/dL (0.76-1.46); Triiodothyronine (T3) Free 2.06 pg/mL (2.18-3.98)
[2018-11-26 08:01] LABS: Hemoglobin 8.9 gm/dL (11.6-15.3)
[2018-11-26 08:08] VITALS: BP 117/63; PULSE 98; TEMP 98
[2018-11-26] MEDS: clonazePAM 0.5 MG Tablet PO SCH (09:36)
[2018-11-26] MEDS: predniSONE 20 MG Tablet PO SCH (09:39)
[2018-11-26] MEDS: acetaZOLAMIDE 250 MG TABLET PO SCH (09:41)
[2018-11-26] MEDS: Senna/Docusate Sodium 8.6/50 MG Tablet PO SCH (09:45)
--- NOTE | 2018-11-26 14:34 | P.PNONC ---
Subjective Interval history: Patient seen earlier in the day. Patient denies headache or blurry vision today. Long discussion with patient and her in regards to follow-up for steroid taper and CBC or Sunday this week. 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 She was also supplementing with hCG for weight loss. We have discussed avoiding supplements. Discussed with Dr. Rollins. Objective Vital Signs/Intake & Output: Vital Signs 11/25/18 15:30 11/25/18 21:16 11/26/18 00:18 Temperature 98.1 F 97.8 F 97.6 F Pulse Rate 96 H 95 H 97 H Respiratory Rate 18 20 20 Blood Pressure 119/64 120/60 115/63 Pulse Oximetry 100 100 99 11/26/18 04:45 11/26/18 08:00 Temperature 97.9 F 98.0 F Pulse Rate 86 98 H Respiratory Rate 20 20 Blood Pressure 103/50 L 117/63 Pulse Oximetry 100 100 Intake & Output 11/25/18 11/26/18 11/26/18 18:59 06:59 18:59 Other: # Voids 3 3 Date of Last Bowel Movement 11/24/18 11/24/18 Result Diagrams: 11/26/18 06:50 11/25/18 08:26 Laboratory Results: Laboratory Results - last 24 hr 11/26/18 11/26/18 06:50 06:50 Hgb 8.9 L Hct 26.0 L Free T4 1.05 Free T3 2.06 L Culture Results: Microbiology 11/19/18 18:30 Aerobic Blood Culture - Final Blood - Peripheral No growth in 5 days Anaerobic Blood Culture - Final No growth in 5 days 11/19/18 18:14 Aerobic Blood Culture - Final Blood - Peripheral No growth in 5 days Anaerobic Blood Culture - Final No growth in 5 days Objective Remarks: GENERAL: Well-nourished, well-developed female patient, in no acute distress. SKIN: Warm and dry. HEAD: Normocephalic. EYES: No scleral icterus. No injection or drainage. NECK: Supple, trachea midline. CARDIOVASCULAR: +S1/S2 without murmurs. RESPIRATORY: Posterior breath sounds clear, equal bilaterally. Nonlabored at rest. GASTROINTESTINAL: Abdomen soft, non-tender, nondistended. EXTREMITIES: No cyanosis, or edema. MUSCULOSKELETAL: Adequate muscle tone. NEUROLOGICAL: No obvious focal deficit. Awake, alert, and oriented x3. PSYCHIATRIC: Appropriate mood and affect; insight and judgment normal. Assessment/Plan - Plan This is a pleasant 28-year-old female admitted to the hospital with a severe anemia and papilledema noted by senior research analyst. Hematology has been consulted in relation to the severe anemia. Plan: 1. Warm antibody hemolytic anemia, etiology unclear. FISH, BCR, ABL and Sherwin 2 pending. 2. Pseudotumor cerebri. MR venogram did not show any thrombosis. Management per neurology. She denies any vision changes or headaches today, she has follow -up outpatient appointment with neurology. 3. Patient cleared for discharge from a hematology standpoint. She should follow-up later this week for repeat CBC. Continue prednisone 60 mg daily and this will be tapered in the outpatient hematology office. - Attending Statement Patient Amanda Long has decided to leave the hospital against medical advice. This patient has the capacity to refuse care and understands the risks of leaving, including permanent disability and/or , and has had an opportunity to ask questions about his/her condition. The patient has been informed that he/she may return for care at any time, and follow up has been arranged/advised. Late entry. I saw patient this morning and her at the bedside. She is feeling better. She denies any headache. Her vision is about 90% improved. She is tolerating prednisone well. Her hemoglobin is relatively stable. She denies any dark color urine. I told her to continue prednisone 60 mg daily with GI prophylaxis. She will follow hematology clinic later this week to monitor CBC and taper prednisone. She has been told not to take any more supplement. Their questions were answered.
--- NOTE | 2018-11-26 19:36 | P.DS ---
DS: Providers Date of admission: 11/19/18 22:44 Primary care physician: No Primary Care Physician Consults: 11/20/18 00:04 Consult to Hematology Routine Consulting Provider: Viktor Wood Reason for Consultation: macrocytic anemia of unknown origin Notified:: Service Spoke with:: Merry Date Notified:: 11/20/18 Time Notified:: 00:17 Ordering Provider: MAT Consult to Neurology Routine Consulting Provider: Hernán Huggins Reason for Consultation: Bilateral papilledema with headaches and visual changes Notified:: Service Spoke with:: Rand Date Notified:: 11/20/18 Time Notified:: 00:20 Ordering Provider: MAT 11/20/18 10:33 Consult to Infectious Diseases Routine Consulting Provider: Kieran Ricks Reason for Consultation: 28 year old with papilledema, leukocytosis but no fever. She does have a stiff neck as well. LP is pending. Notified:: Service Spoke with:: EZEKIEL Date Notified:: 11/20/18 Time Notified:: 10:37 Ordering Provider: MONI DS: Summary 28 year old female with no prior medical history who presented to ED from opthalmologist after reporting ear pressor and being found with elevated occular pressor outpatient. patient was admitted where the following services and treatments provided. Briefly consultation appreciated by infectious disease over concerns for possible infected CSF fluid but analysis was unremarkable and they signed off. consultation by hematology for anemia and patient underwent BM biopsy. consultation appreciated by neurology and patient started on acetazolamide and torsemide therapy with clinical improvement and stablization. patient also started on prednisone 60mg by hematology over concerns regarding possible warm antibody mediated anemia. clinically patient improved and cleared for discharge with following provisions. patient to follow up hematology within 1 week ( appointment set up for sunday following todays discharge), PMD within 1 week, neurology in 3-4 weeks to beign tapering medications and opthalmologist for continued monitoring of eye pressure. Time Spent with Patient Total time spent providing and/or coordinating discharge services: > 30 min 28 year old female with no prior medical history who presented to ED from opthalmologist after reporting ear pressor and being found with elevated occular pressor outpatient. patient was admitted where the following services and treatments provided. Briefly consultation appreciated by infectious disease over concerns for possible infected CSF fluid but analysis was unremarkable and they signed off. consultation by hematology for anemia and patient underwent BM biopsy. consultation appreciated by neurology and patient started on acetazolamide and torsemide therapy with clinical improvement and stablization. patient also started on prednisone 60mg by hematology over concerns regarding possible warm antibody mediated anemia. clinically patient improved and cleared for discharge with following provisions. patient to follow up hematology within 1 week ( appointment set up for sunday following todays discharge), PMD within 1 week, neurology in 3-4 weeks to beign tapering medications and opthalmologist for continued monitoring of eye pressure. Quality: VTE Deep Vein Thrombosis/Pulmonary Embolism Present on Admission: No Results Labs on day of discharge: Labs from last 24 hours 11/26/18 11/26/18 06:50 06:50 Hgb 8.9 L Hct 26.0 L Free T4 1.05 Free T3 2.06 L Impressions ITS Impressions Orbit MRI 11/19/18 17:54 CONCLUSION: Mild ethmoid sinusitis. Otherwise normal orbit MRI with and without contrast. Head/Brain Mag Res Venography 11/20/18 00:00 CONCLUSION: 1. Negative MRV Brain with and without contrast. Lumbar Puncture Fluoroscopy 11/20/18 00:00 CONCLUSION: 1. Uncomplicated fluoroscopically guided lumbar puncture. 2. Abnormally elevated opening pressures of 44 cm of water. Closing pressures of 9 cm of water after removing 31 cc of CSF. Findings are characteristic of pseudotumor cerebri. Head CT 11/20/18 13:56 CONCLUSION: 1. No acute intracranial abnormality. . Abdomen/Pelvis CT 11/21/18 00:00 CONCLUSION: 1. Normal CT abdomen/pelvis with contrast. Chest CT 11/21/18 00:00 CONCLUSION: 1. A few scattered small areas of increased ground substance in both lungs without focal consolidation or nodularity. 2. No evidence of adenopathy. Bone Marrow Biopsy w/ CT 11/22/18 00:00 CONCLUSION: 1. Uncomplicated CT guided bone marrow aspirate. 2. Uncomplicated CT guided bone marrow biopsy. Discharge Plan Discharge Disposition Patient Disposition: Discharge Home Discharge Condition Condition: Stable Discharge Order Discharge Orders: Discharge Order (Routine); Ordered 11/26/18 Ordered By: Cisco Rollins Discharge Details Anticipated Discharge Date: 11/26/18 Discharge Comment: [facility] ED Provider: Mari Donahue Primary Care Provider: Primary Care Magda Smith Attending Provider: Cisco Rollins Other Providers: Viktor Wood ; Hernán Huggins ; Kieran Ricks Rxs /Orders / Referrals /Forms Prescriptions: New prednisone 20 mg Tablet 60 mg PO DAILY 14 Days Qty: 42 RF: 0 acetazolamide 250 mg Tablet 500 mg PO Q12HR 28 Days Qty: 56 RF: 1 pantoprazole [Protonix] 40 mg tablet,delayed release (DR/EC) 40 mg PO DAILY 14 Days Qty: 14 RF: 0 torsemide 10 mg tablet 10 mg PO BID 28 Days Qty: 56 RF: 1 Discontinued amoxicillin 875 mg Tablet 875 mg PO BID RF: 0 methocarbamol 750 mg Tablet 750 mg PO BID RF: 0 methylprednisolone 4 mg Tablets,Dose Pack 4 mg PO PER PKG DIR RF: 0 Referrals: Viktor Wood MD [Physician] - See Instructions (please call for appointment within 1 week of discharge. continue pred 60mg for now and protonix. follow up outpatient for biopsy results. On 11/26/18 patient information was faxed to oncology, they will call pt to set up appointment.) Hernán Huggins MD, PhD [Physician] - See Instructions (please follow up in 4 weeks post discharge. will taper diamox at this time as per neurology. please call to make appointent with Dr. Huggins [phone] for follow up) Primary Care Magda Smith [Primary Care Provider] - See Instructions [facility], [Non-Staff] - See Instructions (Call to establish primary follow up as needed on discharge if you do not already have a regular doctor. Also follow up Dr. lin december 06 as already scheduled by patient ) Discharge Instructions Additional Instructions: please follow up dr. wood hematology on discharge [facility] referral if needed to establish pmd for follow will need optho Dr. Lin on December 06 follow up for visual field testing. Patient has already been evaluated by optho outpatient and has scheduled appointment in place. Status ED Status: Left Department Discharge Information Discharge Date/Time: 11/26/18 13:14
== END 2018-11-26 13:14 | disposition home or self-care (01) | DRG 809 ==
LOC: NEPC 15:19 → NEDA 22:44 → N05 11-20 01:33
PROVIDERS: ADMIT Internal Medicine; ATTEND Internal Medicine
DX: D59.1 Other autoimmune hemolytic anemias; J32.2 Chronic ethmoidal sinusitis; W19.XXXA Unspecified fall, initial encounter; M43.6 Torticollis; H47.10 Unspecified papilledema; E87.6 Hypokalemia; D53.9 Nutritional anemia, unspecified; G93.2 Benign intracranial hypertension; Y92.231 Patient bathroom in hospital as the place of occurrence of the external cause; D72.829 Elevated white blood cell count, unspecified; R55 Syncope and collapse
CPT/HCPCS: 36430; 38222; 62270; 70450; 70543; 70546; 71260; 74177; 76360; 76937; 77003; 77012; 80048; 80053; 81001; 82247; 82248; 82565; 82607; 82746; 82945; 83010; 83540; 83550; 83605; 83615; 83918; 83921; 84155; 84157; 84439; 84443; 84481; 84630; 84703; 85014; 85018; 85025; 85097; 85610; 85651; 85652; 85730; 86077; 86850; 86860; 86870; 86880; 86900; 86901; 86902; 86922; 87040; 87070; 87205; 88305; 88311; 88313; 89051; 90761; 90765; 93005; 96361; 96365; 99145; 99152; 99153; 99285; A9585; C1830; J0696; J1100; J2250; J2543; J3010; J3370; J7030; J7050; J7506; J7512; P9016; Q9967